=== PATIENT | male | born 2000 | race Caucasian/White ===

== ENCOUNTER 2024-04-22 09:21 | Emergency (ER) | payer OTHER, BC, SELFPAY ==
--- NOTE | 2024-04-22 | ECG_ITS ---
Test Reason : CHEST PAIN Blood Pressure : / mmHG Vent. Rate : 061 BPM Atrial Rate : 061 BPM P-R Int : 126 ms QRS Dur : 098 ms QT Int : 392 ms P-R-T Axes : 015 051 -02 degrees QTc Int : 394 ms Normal sinus rhythm with sinus arrhythmia Normal ECG No previous ECGs available Referred By: Generic ED Physician Electronically Signed By:JAVON ALMONTE MD
--- NOTE | ~2024-04-22 | XR_ITS ---
EXAMINATION: XR CHEST CLINICAL INFORMATION: Chest pain COMPARISON: None available. TECHNIQUE: Frontal view of the chest was obtained. FINDINGS: Very slight right basilar atelectasis. No pneumothorax. Trachea is midline. Cardiac mediastinal silhouette is not enlarged. No large pleural effusion. Osseous structures are intact. Soft tissues are unremarkable. XR/XR chest 1V IMPRESSION: Very slight right basilar atelectasis.
[2024-04-22 09:40] VITALS: BP 106/49; PULSE 65; RESP 18; TEMP 37; O2SAT 98; BMI 25.1
[2024-04-22 09:49] LABS: MANUAL DIFF FLAG NO
[2024-04-22 09:53] LABS: Basophils Percent Auto 0.2 % (0-2); Eosinophils Absolute Auto 0.1 X10*3/uL (0.0-0.4); Eosinophils Percent Auto 0.7 % (0-4); Hematocrit 43.3 % (42.0-52.0); Hemoglobin 14.9 g/dl (14.0-18.0); Imm Gran Abs Auto 0.03 X10*3/uL (0.00-0.03); Imm Gran Pct Auto 0.4 % (0.0-0.4); Lymphocytes Absolute Auto 0.7 X10*3/uL (1.2-4.9); Lymphocytes Percent Auto 8.3 % (20-40); Mean Corpuscular HGB Conc 34.4 g/dl (31.0-36.0); Mean Corpuscular Hemoglobin 27.9 pg (27.0-33.0); Mean Corpuscular Volume 80.9 fL (80.0-98.0); Mean Platelet Volume 9.8 fL (9.4-12.4); Monocytes Absolute Auto 0.7 X10*3/uL (0.1-1.2); Monocytes Percent Auto 8.4 % (2-11); Neutrophils Absolute Auto 6.9 x10*3/uL (2.0-8.3); Platelet Count 188 X10*3/uL (160-400); Red Blood Count 5.35 X10*6/uL (4.60-5.80); Red Cell Distribution Width 13.3 % (11.0-16.0); White Blood Count 8.4 X10*3/uL (4.8-10.8)
[2024-04-22 09:58] LABS: Prothrombin Time 12.6 SEC (11.1-13.3)
[2024-04-22 10:04] LABS: Alanine Aminotransferase 20 U/L (0-40); Albumin Level 4.7 g/dL (3.5-5.0); Alkaline Phosphatase 81 U/L (39-117); Anion Gap 13 (12-20); Aspartate Amino Transferase 27 U/L (5-37); Bilirubin Total 0.6 mg/dL (0.0-1.0); Blood Urea Nitrogen 19 mg/dL (9-16); Calcium 9.9 mg/dL (8.4-10.2); Carbon Dioxide 27 mmol/L (22-29); Chloride 103 mmol/L (96-108); Creatinine Clr Calc Pharmacy 106.6; Estimated Glomerular Filt Rate > 60; Glucose Random 87 mg/dL (60-115); Magnesium 1.9 mg/dL (1.6-2.6); Potassium 4.3 mmol/L (3.3-5.1); Sodium 139 mmol/L (135-145); Total Protein 7.8 g/dL (6.5-8.0)
--- NOTE | 2024-04-22 10:09 | ED_ITS ---
HPI - Nausea/Vomiting/Diarrhea General Chief complaint: Nausea/Vomiting/Diarrhea Stated complaint: Chest pain, vomiting, diarrhea Time Seen by Provider: 04/22/24 09:51 Source: patient Mode of arrival: ambulatory Limitations: no limitations History of Present Illness ED Provider: GEOVANNY YE Narrative: 23 yo male with no sig PMH here with c/o eating infante last night with chicken then started to vomit and have diarrhea this AM noted epigastric and chest pain - has no chest pain when he works out no recent travel/procedures/abx use. His roommate seems okay. No fevers MD elicited complaint: nausea, vomiting, diarrhea and abdominal pain Onset (ago): hour(s) (several) Description of vomiting: food contents and watery Description of diarrhea: watery Associated nausea: Yes Associated abdominal pain: Yes Location of pain: chest and epigastric Radiation: diffuse Pain consistency: intermittent Severity: moderate Quality: aching and constant Exacerbating factors: eating Relieving factors: none Context: possible food poisoning Associated symptoms: headaches, loss of appetite, malaise, nausea/vomiting and weakness Related Data Previous Rx's ?Medication ?Instructions ?Recorded ondansetron 4 mg disintegrating 4 mg PO Q8H PRN nausea and 04/22/24 tablet vomiting #20 tabs Allergies Allergy/AdvReac Type Severity Reaction Status Date / Time No Known Allergies Allergy Verified 04/22/24 09:43 Review of Systems 2 Review of Systems: Constitutional : No Weight loss, No Fever, No Chills ENT/Mouth : No sore throat, No Rhinorrhea Eyes: No Swelling, No Redness Cardiovascular : pos Chest Pain, No SOB, NoEdema Respiratory : No Cough, No Sputum, No Wheezing Gastrointestinal : Positive Nausea, Positive Vomiting, positive Diarrhea, positive abdominal Pain, No Hematochezia, No Melena Genitourinary : No Dysuria, No Urinary Frequency, No Hematuria, No Urgency Musculoskeletal : No joint pain, No Myalgias, No Joint Swelling Skin : No Skin Lesions, No rash Neuro : No Weakness, No Numbness, No Dizziness, pos Headache Psych : No Anxiety/Panic, No Depression All other systems reviewed and are negative. Gastrointestinal: Gastrointestinal: Reports nausea PMFSH Past Medical History Attestation statement: The following information was validated with the patient. Source: old records reviewed Medical History No pertinent past medical history Social History Social History (Updated 04/22/24 @ 10:14 by Rachael Hussein DO) Alcohol intake: current Alcohol intake frequency: holidays/special occasions only Patient Tobacco Use Status: Never used Tobacco Smoked in Last 30 Days: No Use of substances other than those prescribed or required for medical reasons: No Advance Directives: Yes Advance Directives Information Provided: Yes Advance Directives on File: No Do you have a plan to hurt others: No Plan Physical Exam 2 Vital Signs: Vital Signs: Last Vital Signs Temp 97.8 F 04/22/24 12:20 Pulse 60 04/22/24 12:20 Resp 18 04/22/24 12:20 BP 110/62 04/22/24 12:20 Pulse Ox 100 04/22/24 12:20 O2 Del Method Room Air 04/22/24 12:20 BMI result Body Mass Index 25.1 Appearance: Alert. Oriented X3. No acute distress. Eyes: Pupils equal, round and reactive to light. ENT: Pharynx normal. Neck: Normal inspection. Neck supple. CVS: Normal heart rate and rhythm. Pulses normal. Respiratory: No respiratory distress. Breath sounds normal. Abdomen: Soft and nontender. Skin: Skin warm and dry. Normal skin color. Normal skin turgor. Extremities: No lower extremity edema. No calf ttp Neuro: Oriented X 3. No motor deficit. No sensory deficit. Medications Administered Discontinued Medications Generic Name Dose Route Start Last Admin Trade Name Freq PRN Reason Stop Dose Admin Diphenhydramine HCl 25 mg 04/22/24 09:54 04/22/24 10:10 Diphenhydramine Hcl 50 Mg/Ml Vial IVPUSH 04/22/24 09:55 25 mg ONCE ONE Administration Famotidine 20 mg 04/22/24 09:54 04/22/24 10:11 Famotidine/Pf 20 Mg/2 Ml Vial IVPUSH 04/22/24 09:55 20 mg ONCE ONE Administration Sodium Chloride 1,000 mls @ 999 mls/hr 04/22/24 09:54 04/22/24 11:11 Ns IV 04/22/24 10:54 Infused .Q1H1M ONE Infusion Metoclopramide HCl 10 mg 04/22/24 09:54 04/22/24 10:11 Metoclopramide Hcl 10 Mg/2 Ml Vial IVPUSH 04/22/24 09:55 10 mg ONCE ONE Administration Medical Decision Making Medical Decision Making MDM Narrative: 23 yo male no sig PMH here with headaches, nonbloody n/v/d and epigastric chest pain that started after n/v after eating [employer] - no travel, abx use or sick contacts at this time will need labs, CXR, IVF and IV medications suspect gastritis, viral syndrome, food toxicity, no localized ttp on abdominal exam Differential Diagnosis Differential Diagnoses: The differential diagnosis associated with the presentation includes food toxicity, GERD, gastritis Admission/Observation Consideration of admission/observation: Escalation of care including admission/observation considered tolerating PO feels better labs reassuring stable for DC Lab Data [facility] Lab Attestation statement: I reviewed the patient's lab results. 04/22/24 09:38 04/22/24 09:38 Labs: Lab Results 04/22/24 Range/Units 09:38 WBC 8.4 (4.8-10.8) X10*3/uL RBC 5.35 (4.60-5.80) X10*6/uL Hgb 14.9 (14.0-18.0) g/dl Hct 43.3 (42.0-52.0) % MCV 80.9 (80.0-98.0) fL MCH 27.9 (27.0-33.0) pg MCHC 34.4 (31.0-36.0) g/dl RDW 13.3 (11.0-16.0) % Plt Count 188 (160-400) X10*3/uL MPV 9.8 (9.4-12.4) fL Immature Gran % (Auto) 0.4 (0.0-0.4) % Neut % (Auto) 82.0 H (45-73) % Lymph % (Auto) 8.3 L (20-40) % [place] % (Auto) 8.4 (2-11) % Eos % (Auto) 0.7 (0-4) % Baso % (Auto) 0.2 (0-2) % Lymph # (Auto) 0.7 L (1.2-4.9) X10*3/uL [place] # (Auto) 0.7 (0.1-1.2) X10*3/uL Eos # (Auto) 0.1 (0.0-0.4) X10*3/uL Baso # (Auto) 0.0 (0.0-0.2) X10*3/uL Abs Immat Gran (auto) 0.03 (0.00-0.03) X10*3/uL Absolute Neuts (auto) 6.9 (2.0-8.3) x10*3/uL Absolute Nucleated RBC 0.000 (0.0-0.012) X10*3/uL Nucleated RBC % (auto) 0.0 (0.0-0.2) /100WBC PT 12.6 (11.1-13.3) SEC INR 1.0 (0.9-1.1) Sodium 139 (135-145) mmol/L Potassium 4.3 (3.3-5.1) mmol/L Chloride 103 (96-108) mmol/L Carbon Dioxide 27 (22-29) mmol/L Anion Gap 13 (12-20) BUN 19 H (9-16) mg/dL Creatinine 1.06 (0.5-1.4) mg/dL Estim Creat Clear Calc 106.6 Estimated GFR > 60 Random Glucose 87 (60-115) mg/dL Calcium 9.9 (8.4-10.2) mg/dL Magnesium 1.9 (1.6-2.6) mg/dL Total Bilirubin 0.6 (0.0-1.0) mg/dL AST 27 (5-37) U/L ALT 20 (0-40) U/L Alkaline Phosphatase 81 (39-117) U/L Troponin I High Sens < 2.7 (<3.5-35.0) ng/L Total Protein 7.8 (6.5-8.0) g/dL Albumin 4.7 (3.5-5.0) g/dL Lipase 24 (8-78) U/L Independent Interpretation I performed an independent interpretation of an: EKG and Plain X-Ray (no consolidation) Interpretation: Rate: 61 Rhythm: NSR [place]: normal Normal P waves. Normal BOB. Normal QRS complex. ST T wave : no DA, inverted t waves V1 and III qTC: 394 prior studies: no acute ischemia The study has been interpreted contemporaneously by me. . Radiology Impression Discussion of test interpretation with radiology: I have reviewed the radiologist's reading. Prescription Management I considered prescription management with: Other Discharge Plan Discharge Clinical Impression: Atypical chest pain Nausea & vomiting Qualifiers: Vomiting type: unspecified Qualified Code(s): R11.2 - Nausea with vomiting, unspecified Patient Disposition: Home, Self-Care Instructions: Chest Pain (ED), Acute Nausea and Vomiting (ED) Additional Instructions: labs reassuring, EKG reassuring, chest xray no pneumonia return for fevers, worsening breathing, cough or any other concerns bland diet for 24 hours, stay hydrated, advance diet slowly Prescriptions: New ondansetron 4 mg tablet,disintegrating 4 mg PO Q8H PRN (Reason: nausea and vomiting) Qty: 20 0RF Stand Alone Forms: Work/School Release Print Language: [place]
[2024-04-22] MEDS: diphenhydrAMINE HCL 50 MG/ML VIAL 25 MG IVPUSH (10:10)
[2024-04-22] MEDS: 0.9 % Sodium Chloride 1,000 ML 999 ML IV (10:10)
[2024-04-22 10:11] LABS: Troponin-I High Sensitivity < 2.7 ng/L (<3.5-35.0)
[2024-04-22] MEDS: Metoclopramide HCl 10 MG/2 ML VIAL IVPUSH (10:11)
[2024-04-22] MEDS: Famotidine/PF 20 MG/2 ML VIAL IVPUSH (10:11)
--- NOTE | 2024-04-22 10:19 | PC.NURSE ---
patient a&ox3, vss, iv inserted, labs previously drawn, ivf hung per order, pt medicated per order, currently pt denying any abd pain- states he only has pain during/immediately after vomiting. call mehta within reach, will continue to monitor
--- NOTE | 2024-04-22 11:28 | PC.NURSE ---
pt ivf have completed, pt stating he is feeling better.
[2024-04-22 11:35] LABS: Lipase 24 U/L (8-78)
[2024-04-22 12:20] VITALS: BP 110/62; PULSE 60; RESP 18; TEMP 36.6; O2SAT 100
[2024-04-22 12:32] VITALS: BP 110/62; PULSE 60; RESP 18; TEMP 36.6; O2SAT 100
== END 2024-04-22 12:32 | disposition home or self-care (01) ==
PROVIDERS: Emergency Provider Emergency Medicine; PCP Family Medicine Adult Medicine
DX: R07.89 Other chest pain (principal); R11.2 Nausea with vomiting, unspecified; R19.7 Diarrhea, unspecified; R10.13 Epigastric pain
CPT/HCPCS: 36415; 71045; 80053; 83690; 83735; 84484; 85025; 85610; 93005; 96361; 96374; 96375; 99284; 99285; J1200; J2765

== ENCOUNTER → 2024-04-22 09:26 | Outpatient (BNV) | payer OTHER, BC, SELFPAY | PROVIDERS: Emergency Provider Emergency Medicine; PCP Family Medicine Adult Medicine; Visit Provider Internal Medicine Cardiovascular Disease | DX: R07.9 Chest pain, unspecified (principal) | CPT/HCPCS: 93010 ==

== ENCOUNTER 2024-11-06 08:38 | Outpatient (AMB) | payer OTHER, SELFPAY ==
--- NOTE | 2024-11-06 08:41 | A.OFFPC_ITS ---
Vital Signs 11/06/24 08:57 Height 5 ft 7 in Weight 157 lb 2 oz BMI 24.6 BP 124/72 Blood Pressure Location Rt brachial Position Sitting Respiration 12 Pulse 58 Pulse Source Pulse Oximeter Pulse Oximetry (%) 99 Oxygen Delivery Method Room Air Intake Visit Reasons: back pain /pt request Intake Note: New patient to [facility] and patient also complaining of lower back pain x 2 years Jordan Man Required: No Allergies No Known Allergies Allergy (Verified 11/06/24 09:32) Medication List - Last Reconciled 11/06/24 by Tila Lofton [facility] No Known Home Meds Tobacco use date assessed: 11/06/24 Dental Screening Dental Screen Date: 11/06/24 Did you have a dental visit in the last 12 months?: Yes Did you have a dental problem in the last 6 months where you did not have access to dental care?: No Was dental information given to patient?: Patient has dentist HPI HPI Comments History of Present Illness Details 24-year-old male with no significant med ical history Social: [place], lives in [facility] Flu declined Tdap UTD - Specialists None Here today to establish care. No previous medical records available to me. Presenting with lower back pain. 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 The patient describes the pain as being located on both sides but more pronounced on the left side, without radiating outwards. It is constant throughout the day and exacerbated by physical activities such as lifting weights, bending over, and specific sitting positions, e.g., in a car. No relief has been found with the use of Tylenol, ibuprofen, heating pads, or topical analgesics like Salonpas. 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 The patient has not reported any traumatic injury. No other treatments have been pursued outside self-care measures, and no imaging studies have previously been performed. Pain does not radiate to the legs, and there are no alterations in urination or abdominal pain. No red flag signs assoc w/ back pain. Physical Exam General: Awake, alert. No apparent distress Eyes: Sclera and conjunctiva clear bilaterally, PERRLA Neck FROM Cardiovascular: Regular rate and rhythm Respiratory: Clear to auscultation bilaterally Lumbar and sacral spinal tenderness w/ palpation. Paraspinal muscle spasm on the left causing a straigthening of L spine; this area is tender to touch. Negative SLR, Neg glute bridge, no leg length discrepancy. Normal strength, tone, r eflexes. Neurovasc intact. Plan - Order lumbar spine x-rays to evaluate underlying structural issues. - Recommend initiating a course of physi yvonne therapy focused on sports and conditioning, particularly targeting the hamstrings, hips, and lower back. - Consider referral to a chiropractic sp ecialist for possible spine adjustment PRN - Prescribe prescription-strength ibupro fen and a low-dose muscle relaxer to manage symptoms and aid in relieving muscle spasms. Patient was informed and verbally consented to the use of an ambient scribe for clinic note documentation during this visit. Discussion Notes I discussed with the patient the likely diagnosis of chronic lower back pain, potentially exacerbated by muscle strain or spasms due to previous training and physical activities. Given the chronic nature of his symptoms, I recommended an initial diagnosis to include lumbar spine x-rays. For management, I presented options, including chiropractic adjustments and physical therapy, explaining the benefits and potential relief these could offer. We evaluated physical therapy with a specialist in sports and conditioning to better serve his needs and lifestyle. The patient was informed about the prescription of ibuprofen and Xanaflex for symptomatic relief and advised to monitor his symptoms closely. We discussed the importance of these interventions and agreed to re-evaluate in six weeks to assess progress. The patient was encouraged to use the patient portal for accessing medical records and missed follow-up appointments. RTO 6 weeks to fu on back pain s/p PT. Sooner PRN Total time spent caring for the patient today was 30 minutes. This includes time spent before the visit reviewing the chart, time spent during the visit, and time spent after the visit on documentation [facility] Medical History No pertinent past medical history Surgical History No pertinent past surgical history Family History (Updated 11/06/24 @ 08:57 by Mariela Kramer MA) Brother Mental health disorder Paternal Grandfather Substance abuse Cancer Paternal Grandmother Substance abuse Cancer Maternal Grandmother Cancer Cardiovascular disease Mother Cardiovascular disease Social History (Updated 11/06/24 @ 08:55 by Mariela Kramer MA) Household Members: Other Household Members Other:: roomates Both parents involved: No Caregiver staying overnight: No Housing: Apartment Are you a primary adult live in caregiver to a significant other at home: No Do you presently have visiting nurse or other home services: No 75 years or older and lives alone: No Alcohol intake: current Alcohol intake frequency: holidays/special occasions only Patient Tobacco Use Status: Never used Tobacco e-Cigarette/Vaping Use: Never Used Second Hand Smoke Exposure: No service: Yes Current occupational status: student Cognitive needs: No Hearing needs: No Vision needs: No Questionnaire PHQ-9 Over the last 2 weeks, how often have you been bothered by any of the following problems? 1. Little interest or pleasure in doing things: not at all 2. Feeling down, depressed, or hopeless: not at all 3. Trouble falling or staying asleep, or sleeping too much: not at all 4. Feeling tired or having little energy: not at all 5. Poor appetite or overeating: not at all 6. Feeling bad about yourself - or that you are a failure or have let yourself or your family down: not at all 7. Trouble concentrating on things, such as reading the newspaper or watching television: not at all 8. Moving or speaking so slowly that other people could have noticed. Or the opposite - being so fidgety or restless that you have been moving around a lot more than usual: not at all 9. Thoughts that you would be better off or of hurting yourself in some way: not at all Total score: 0 Depression Screening Interpretation: Negative Depression Screening Done: Yes 36870 - PHQ-9 Billing: Yes Source: Developed by Drs. Reginaldo Cuello, Marielos Parrish, Ned Selby and colleagues, with an educational karel from [employer] Thrive Questionnaire Date Thrive assessed: 11/06/24 I am a: Patient What is your living situation today?: I have a steady place to live Within the past 12 months, did the food you bought not last and you didn't have the money to get more?: Never true Within the past 12 months, did you worry whether your food would run out before you got money to buy more?: Never true Do you have trouble paying for medicines?: No Do you have trouble getting transportation to medical appointments?: No Do you have trouble paying your heating and electricity bill?: No Do you have trouble taking care of your child, family member or friend?: No Do you have trouble with day-to-day activities such as bathing, preparing meals, shopping, managing finances, etc.?: No Are you currently unemployed and looking for a job?: No Are you interested in more education?: No THRIVE Score: 0 AUDIT C Alcohol Use Questionnaire (AUDIT-C) 1. How often do you have a drink containing alcohol?: Never 3. How often do you have six or more drinks on one occasion?: Never Total Score: 0 Score Reviewed/Action Taken: Yes GALINA-7 AMB Questionnaire GALINA-7 Date GALINA - 7 assessed: 11/06/24 Feeling nervous, anxious, or on edge: 0 = Not at all Not being able to stop or control worryin = Not at all Worrying too much about different things: 0 = Not at all Trouble relaxin = Not at all Being so restless that it is hard to sit still: 0 = Not at all Becoming easily annoyed or irritable: 0 = Not at all Feeling afraid as if something awful might happen: 0 = Not at all Total GALINA-7 score (0-4 normal; 5-9 mild; 10-14 moderate; 15-21 severe): 0 Source: Developed by Drs. Reginaldo Cuello, Marielos Parrish, Ned Selby and colleagues, with an educational karel from [employer] GALINA-7 Assessment Billing GALINA-7 Assessment Tool: GALINA-7 Assessment 32861 Physical exam (Primary Care) Vital Signs: Last Vital Signs Pulse 58 11/06/24 08:57 Resp 12 11/06/24 08:57 BP 124/72 11/06/24 08:57 Pulse Ox 99 11/06/24 08:57 Oxygen Delivery Method Room Air 11/06/24 08:57 BMI result Body Mass Index 24.6 Tobacco/Smoking Status: Tobacco use Status Tobacco use date assessed 11/06/24 11/06/24 08:45 Patient Tobacco Use Status Never used Tobacco 11/06/24 08:55 e-Cigarette/Vaping Use Never Used 11/06/24 08:55 PHQ-9: PHQ-9 Score PHQ-9: Total score 0 11/06/24 08:42 Depression Screening Interpretation: Negative Thrive Assessment: Date of Thrive Assessment Date Thrive assessed 11/06/24 11/06/24 08:42 Coding Level of Care Code New Pt Level 3 (69560) Complex EM visit Add On G2211 Diagnoses Encounter to establish care Z76.89 Chronic midline low back pain without sciatica M54.50; G89.29 Chronicity: chronic Back pain laterality: midline Sciatica presence: without sciatica activity status Y99.1 Additional Codes PHQ-9 - 53311 - PHQ-9 Billing: Yes ([id number]) GALINA-7 Assessment Billing - GALINA-7 Assessment Tool: GALINA-7 Assessment 75904 ([id number]) Assessment & Plan Assessment & Plan (1) Encounter to establish care: Code(s): Z76.89 - Persons encountering health services in other specified circumstances Category: Medical (2) Low back pain: Code(s): M54.50 - Low back pain, unspecified Category: Medical Qualifiers: Chronicity: chronic Back pain laterality: midline Sciatica presence: without sciatica Qualified Code(s): M54.50 - Low back pain, unspecified; G89.29 - Other chronic pain (3) 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 Orders: Orders PT Evaluation and Treatment Today M54.50 - Low back pain, unspecified XR lumbar spine 6V w bending Today M54.50 - Low back pain, unspecified XR sacroiliac joint min 3V Today M54.50 - Low back pain, unspecified Medications: New ibuprofen 800 mg PO Q8H PRN 30 tabs 2RF pain tizanidine (Zanaflex) 2 mg (1/2 x 4 mg) PO BID 5 days PRN 5 tabs 0RF muscle spasticity Patient Instructions: Patient Instructions - Proceed to have lumbar spine x-rays done at the [place] office at your convenience. - Schedule and attend physical therapy sessions as recommended to address muscle tightness and back pain. - Use prescribed ibuprofen and muscle relaxers as needed for pain and muscle spasms. - Monitor symptoms and report any worsening or new symptoms. - Follow up in six weeks to evaluate the effectiveness of the treatment. - Use the patient portal to access results, view appointments, and communicate non-urgent medical questions. - Avoid heavy lifting or activities that exacerbate back pain in the meantime. Walk-In Care (Urgent Care): We Make it Easy Walk-in for urgent medical issues such as: ? Seasonal Allergies ? Insect Bites ? Cough ? Diarrhea ? Acute Asthma Attacks ? Back, Knee or Joint Pain ? Ear Infection ? Fever without a Rash ? Headaches ? Nausea ? [place], Rash or Skin Irritation ? Sore Throat ? Sports Physicals ? Vomiting Most insurances are accepted. Patients do not need to be part of the [facility] to seek care at the walk-in clinic. Locations [address] [place] [address] [place] [address] ? [phone] [facility] Walk-In Care in [place] provides services to ages 18 and over. Open Sunday-Sunday: 8 a.m. to 5 p.m. and Sunday: 9 a.m. to 3 p.m.* *Hours may vary due to staffing availability. To confirm Walk-In Care hours in [place], please call [phone]. [address] [place] [address] ? [phone] [facility] Walk-In Care in [place] provides services to ages 12 and over. Open Sunday-Sunday: 8 a.m. to 5 p.m. Hours may vary due to staffing availability. To confirm Walk-In Care hours in [place], please call [phone]. LABORATORY SERVICES: [facility] Lab ? Primary Location [address] [place] [address] Sunday through Sunday 6:00 AM ? 5:00 PM Sunday 7:00 AM ? 11:00 AM* [phone] The [facility] Lab is centrally located near the front entrance of the [facility] for easy outpatient access. Convenient parking is provided for outpatients. *Hours may vary due to staffing availability. To confirm Laboratory hours for any location, please call [phone]. Offsite Location For your convenience, we offer offsite laboratory draw stations at the following locations: [address] [facility] [place] ? [facility] [address] [facility], [address], [place] Sunday through Sunday 7:30 AM ? 1:00 PM* [phone] *Hours may vary due to staffing availability. To confirm Laboratory hours for any location, please call [phone]. [place] ? [facility] [facility] [address] [facility] [address] [facility], [place] Sunday through Sunday 6:00 AM ? 3:30 PM* Sunday 6:30 AM ? 3 PM* [phone] *Hours may vary due to staffing availability. To confirm Laboratory hours for any location, please call [phone]. [address] [facility] Sunday through Sunday 7:30 AM ? 4:00 PM* [phone] *Hours may vary due to staffing availability. To confirm Laboratory hours for any location, please call [phone] [place] [address] Sunday through 9:00 AM ? 4:00 PM* *Hours may vary due to staffing availability. To confirm Laboratory hours for any location, please call [phone]. Appointments are not necessary. Walk-ins are welcome. Like all the departments throughout the [facility], our Lab undergoes frequent reviews to ensure the quality and accuracy of test results, and our staff takes special pride in its status as a nationally accredited facility. Patient Portal: ONE PATIENT. ONE RECORD. BETTER CARE. [facility] has a fully integrated, cutting- edge mobile electronic health information system that has revolutionized the way we care for our patients and manage our organization. This system improves communication and coordination enabling us to provide safe, higher-quality care, and an overall positive experience for staff and patients. Our first priority, as always, is to deliver the highest quality care possible. The system is running in the background supporting that priority. This portal is for all [facility] services and practices. If you are experiencing any technical difficulties with enrolling or logging into the Patient Portal please complete the [facility] Patient Portal Technical Support Form. [facility] now offers a new secure on-line interactive tool for patients to review their health information ? Patient Portal. This interactive web portal will enable patients and their families to take an active role in their care by providing easy, secure access to their health information via the internet. The Patient Portal provides patients with instant access to their health information, including laboratory results, medications, allergies, demographic information, visit history, and more. In addition to managing their own care, parents and health care proxies with authorized consent will appreciate the ability to access the records of those individuals for whom they provide care. Please note: if you wish to gain access (Proxy) to another patient?s portal, you will be required to come to the Medical Records Department in person at [facility]. Both the patient giving proxy access and the proxy will need to provide photo identification and complete the appropriate authorization. The Patient Portal also allows track their appointments online. The [facility] Patient Portal also saves patients time by allowing them to submit updates to their demographic and contact information prior to their visits. Portal email notifications will also alert patients to any new activity on their portal, such as test results and new appointments. In order to initially enroll in the [facility] Patient Portal, you will need to enter some required information including the following: ? your [facility] Medical Record number ? your personal home email address ? name ? date of Please note: In order to enroll in the [facility] Patient Portal, we need to have your email address on file in your electronic medical record. The email address needs to be specific for one person (yourself) in order for your Portal e nrollment to be successful. You can update your email address in person with our Registration staff when you are registering for a hospital visit. Otherwise, you will need to come to the Health Information Management (Medical Records) Department at [facility]. We are open from Sunday ? Sunday from 7:30 a.m. ? 4:30 p.m. You will be required to present a photo id. Once you have successfully enrolled in the Patient Portal, you will receive a one-time user id and password for the Portal, sent to your email address. This will allow you to log into the Patient Portal within 99 hrs and reset your own logon id and password, and define personal security questions. Once your permanent login and password have been set, you can log into the [facility] Patient Portal at any time via the blue button above or from the Portal Logon button on any page of the [facility] website. [facility] encourage all of our patients to enroll in Patient Portal as it presents a valuable opportunity for patients and their families to actively participate in their care and stay healthy Welcome to [facility]. We look forward to working with you.
--- OUTSIDE RECORDS SUMMARY | 2024-11-06 08:52 | XMS_ITS | Continuity of Care Document ---
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 It does not include entries that were removed or entered in error. Problem Status Onset Date Problem Type Date of Resolution Comments Source No Known Problems Active Condition Ambulatory Pharmacy Medications Combined list of outpatient medications from [facility] and [facility] facilities.Medications provided include 1) outpatient medications from the last 15 months, and 2) patient-reported medications. Medication Details Route Status Patient Instructions Prescription Expires Prescription Number Last Dispense Date Ordering Provider Order Date Order Qty Source Afrin 0.05% nasal spray 2 spray(s) , Nostril- Both, BID, # 15 mL, 0 total refill(s ), Acute, 2 spray(s) Nostril- Both BID, Pharmacy : [facility] Nostri l-Both (into the nose) Complet ed 09/07/2022 15.0 [facility]358C[facility] bacitracin zinc 500 units/g topical ointment 1 appl(s), Topical, BID, # 30 g, 0 total refill(s ), Acute, 1 appl(s) Topical BID, Pharmacy : [facility] Topica l (on the skin) Complet ed 10/04/2022 30.0 0358C[facility] Mucinex D 60 mg-600 mg oral tablet, extended release 1 tab(s), Oral, BID, PRN cold symptoms , # 18 tab(s), 0 total refill(s ), Acute, 1 tab(s) Oral BID,PRN: as needed for cold symptoms , Pharmacy : [facility] Oral (given by mouth) Complet ed 10/04/2022 18.0 [facility]358C[facility] penicillin V potassium 500 mg oral tablet 1 tab(s), Oral, BID, # 20 tab(s), 0 total refill(s ), Acute, 02/12/23 6:56:36 AM CDT, 1 tab(s) Oral BID, Pharmacy : [facility] Oral (given by mouth) Complet ed 02/12/2023 20.0 0091C-N [facility] Allergies, Adverse Reactions, Alerts Combined list of allergies from [facility] and [facility] facilities. It does not include entries that were removed or entered in error. Substance Category Reaction Severity Reaction type Status Date Reported Comments Source No Known Allergies Drug allergy (disorder) active 04/18/2023 [facility] Immunizations Combined list of available immunizations from the [facility] of Defense and [facility] facilities. 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 complet ed COVID Vaccine Moderna 07/25/22 Given 0358A-N [facility] [place] varicella virus vaccine 2021 NOREEN Landaverde Arm [id number] Merck & Company Inc complet ed varicella virus vaccine 07/25/22 Given 0358A-N [facility] [place] hepatitis B adult vaccine 2021 ANN Broussard desiree, right (delt oid) [id number] BeneStream complet ed hepatitis B adult vaccine 07/25/22 Given 0358A-N [facility] [place] poliovirus vaccine, inactivated 1 2021 KAIA OROZCO [id number] Moderna US, Inc. (MOD) complet ed polioviru s vaccine, inactivat ed DoD varicella virus vaccine 1 2021 KAIA OROZCO [id number] 21 Merck (MSD) complet ed varicella virus vaccine [facility] tuberculin skin test; purified protein derivative solution, intradermal 2021 KAIA OROZCO [id number] Sanofi Pasteur (PMC) complet ed tuberculi n skin test; purified protein derivativ e solution, intraderm al DoD meningococcal polysaccharid e (groups A, C, Y and W-135) diphtheria toxoid conjugate vaccine (MCV4P) 1 2021 KAIA OROZCO [id number] Sanofi Pasteur (PMC) complet ed meningoco ccal polysacch aride (groups A, C, Y and W-135) diphtheri a toxoid conjugate vaccine (MCV4P) DoD tetanus toxoid, reduced diphtheria toxoid, and acellular pertu is vaccine, adsorbed 2021 KAIA OROZCO [id number] [email or web address] (SKB) complet ed tetanus toxoid, reduced diphtheri a toxoid, and acellular pertussis vaccine, adsorbed DoD Adenovirus, type 4 and type 7, live, oral 1 2021 KAIA OROZCO [id number] 143 Unknown (UNK) complet ed Adenoviru s, type 4 and type 7, live, oral DoD Hepatitis B vaccine (recombinant) , CpG adjuvanted 1 2021 KAIA OROZCO [id number] 189 Accelereach. (DVX) complet ed Hepatitis B vaccine (recombin ant), CpG adjuvante d DoD SARS-COV-2 (COVID-19) vaccine, mRNA, spike protein, LNP, preservative free, 100 mcg or 50 mcg dose 1 2021 KAIA OROZCO [id number] Sp[employer]. (MOD) complet ed SARS-COV- 2 (COVID-19 ) vaccine, mRNA, spike protein, LNP, preservat roberto free, 100 mcg or 50 mcg dose DoD Results Combined list of recent chemistry, hematology and other laboratory results from [facility] and [facility], ranging from 15 months to all on record, depending upon the facility. Order Name Results Value Reference Range Date Interpretation Specimen Comments Source Molecular Infectiou s Disease Reason for Test? Screening (11/14/22 1:33 PM) 11/14 N [facility] Molecular Infectiou s Disease SARS-CoV -2 PCR Negative 1 (11/14/22 1:33 PM) 01/17 /2023 N Interpretiv e Data: POSITIVE: SARS-CoV-2 detected NEGATIVE: SARS-CoV-2 not detected Negative results do not preclude SARS-CoV-2 infection and should not be used as the sole basis for patient management decisions. Negative results must be combined with clinical observation s, patient history, and epidemiolog ical information . The Aptima SARS-CoV-2 assay performed on the Quolaw Fusion system is a nucleic acid amplificati on in vitro diagnostic test intended for the qualitative detection of RNA from SARS-CoV-2 isolated and purified from upper respiratory specimens obtained from individuals meeting COVID-19 clinical and/or epidemiolog ical criteria, as well as upper respiratory specimens collected from an individual, including individuals withoutsymp toms or other reason to suspect COVID-19 infection. The Aptima SARS-CoV-2 assay is for use only under Emergency Use Authorizati on (EUA) in the laboratorie s certified under the Clinical Laboratory Improvement Amendments of 1988 (CLIA), 42 U.S.C. 263a, that meets requirement s to perform high complexity tests.Resul ts are for the identificat ion of SARS-CoV-2 RNA. The SARS-CoV-2 RNA is generally detectable in upper respiratory specimens during the acute phase of infection. Positive results are indicative of the presence of SARS-CoV-2 RNA, clinical correlation with patient history and other diagnostic information is necessary to determine patient infection status. [facility] Infectiou s Disease Strep A, Rapid Positive *ABN* (11/14/22 1:33 PM) 11/14 A [facility] Vital Signs Combined list of inpatient and outpatient Vital Signs from [facility] of Defense and [facility], ranging from 12 months to all on record, depending upon the facility. Vital Sign Value Date Comments Source Systolic Blood Pressure 116mm[Hg] 09/04/2022 11:17:00 Ambulatory Pharmacy Diastolic Blood Pressure 76mm[Hg] 09/04/2022 11:17:00 Ambulatory Pharmacy Mean Arterial Pressure, Calc 89mm[Hg] 09/04/2022 11:17:00 Ambulatory P harmacy Peripheral Pulse Rate 84bpm 09/04/2022 11:17:00 Ambulatory Pharmacy Respiratory Rate 16br/min 09/04/2022 11:17:00 Ambulatory Pharmacy Temperature Oral 37.4Cel 09/04/2022 11:17:00 Ambulatory Pharmacy BP Site 09/04/2022 11:17:00 [facility]ul [facility]ory Pharmacy Blood Pressure Manual 09/04/2022 11:17:00 Ambulatory Pharmacy Systolic Blood Pressure 133mm[Hg] 11/14/2022 15:55:00 Ambulatory Pharmacy Diastolic Blood Pressure 74mm[Hg] 11/14/2022 15:55:00 Ambulatory Pharmacy Mean Arterial Pressure, Calc 94mm[Hg] 11/14/2022 15:55:00 Ambulatory P harmacy Peripheral Pulse Rate 85bpm 11/14/2022 15:55:00 Ambulatory Pharmacy Respiratory Rate 16br/min 11/14/2022 15:55:00 Ambulatory Pharmacy Temperature Oral 36.7Cel 11/14/2022 15:55:00 Ambulatory Pharmacy BP Site 11/14/2022 15:55:00 [facility]ul [facility] Pharmacy Blood Pressure Manual 11/14/2022 15:55:00 Ambulatory Pharmacy Encounters Combined list of: 1) Encounters from Department of Veterans Affairs facilities going back up to thelast 18 months. 2) Encounters from the Department of Defense facilities going back up to 280 months. Location Location Details Encounter Type Encounter Number Reason For Visit Attending Provider ADM Date DC Date Status Disposition Source [facility] [id number] POLLY RANKIN 06/22 Released w/o Limitations [facility] dominique([facility] OUTPATIENT [id number] JELANI HERNANDEZ 06/22 Released w/o Limitations [facility] OUTPATIENT [id number] FIRST VISIT FOR IMMUNIZ ATIONS MONICA JACOBSON Merrick 06/26 Released w/o Limitations [facility]pin dominique([facility] ) [facility] OUTPATIENT [id number] Notes Entered by: ME ZITA LEON 04 Jul 2022 0855 ------- ------- ------- ------- -- G/2084 URI sx DESHAUN LEON 07/04 Sick at Home/Quarter s [facility] dominique(MCR D [facility]) Procedures Combined list of: 1) Procedures from Department of Veterans Affairs facilities going back up to thelast 18 months, not all VA non-surgical procedures are included; 2) All procedures from the Department of Defense facilities. Procedure Procedure Type Code Date Perfomer Comments Sourc e No data available for this section Ambul[facility] ry Pharmacy Threshold Audiogram (Pure Tone) Automated Threshold Audiogram (Pure Tone) Automated [id number] [place] [facility] Patient education, not otherwise cla ified, non-physician provider, group, per se ion [place] [facility] Ophthalmological New Patient Start Intermediate Level Care Ophthalmological New Patient Start Intermediate Level Care [id number] MAURI JAMESON [facility] Vaccines Viral Polio, Inactivated Vaccines Viral Polio, Inactivated 90662 KAIA OROZCO IPV; Series #: 1; 0.5 mL; IM; Right Arm; Mfg: Lantronix.; Lot: [id number]; VIS given (Heather: 06/03/2021; 08/12/2021 - Multiple). [facility] Vaccines Viral Varicella (Active) Vaccines Viral Varicella (Active) 24296 KAIA OROZCO Varicella; Series #: 1; 0.5 mL; SC; Right Arm; Mfg: Merck; Lot: [id number]; VIS given (Heather: 06/03/2021). [facility] Skin Test Anergy Tuberculin Intradermal Skin Test Anergy Tuberculin Intradermal 20097 KAIA OROZCO IPPD; Series #: 1; 0.1 mL; ID; Left Arm; Mfg: Sanofi Pasteur; Lot: [id number]; VIS given. [facility] Hepatitis B Vaccine (Active) Adult Dosage 2 Dose Schedule Hepatitis B Vaccine (Active) Adult Dosage 2 Dose Schedule 28925 KAIA OROZCO Hep B- CpG (Heplisav-B); Series #: 1; 0.5 mL; IM; Right Arm; Mfg: Accelereach.; Lot: [id number]; VIS given (Heather: 08/12/2021). DoD Vaccine SARS-CoV-2 mRNA-LNP Ricardo Protein Preservative Free 100mcg/0.5mL IM Vaccine SARS-CoV-2 mRNA-LNP Ricardo Protein Preservative Free 100mcg/0.5mL IM 07766 KAIA OROZCO COVID-19 vaccine, mRNA, spike protein, 100 mcg/0.5mL or 50 mcg/0.25mL (Moderna 12+ yrs); Series #: 1; 0.5 mL; IM; Left Arm; Mfg: Moderna Xinrong, Inc.; Lot: [id number]; VIS given (Heather: 04/14/2022). [facility] Immunization Administration By Injection, One Vaccine Immunization Administration By Injection, One Vaccine 85528 KAIA OROZCO [facility] Immunization Administration By Injection, Each Additional Vaccine Immunization Administration By Injection, Each Additional Vaccine 06136 KAIA OROZCO [facility] Immunization Admin By Intranasal / Oral Route One Vaccine Immunization Admin By Intranasal / Oral Route One Vaccine 64110 KAIA OROZCO [facility] Vaccine SARS-CoV-2 mRNA-LNP Ricardo Protein Preservative Free 100mcg/0.5mL IM First Dose Vaccine SARS-CoV-2 mRNA-LNP Ricardo Protein Preservative Free 100mcg/0.5mL IM First Dose 0011A KAIA OROZCO DoD Physician Supervised Injection Intramuscular Physician Supervised Injection Intramuscular 42543 KAIA OROZCO [facility] Venipuncture Venipuncture 42630 KAIA OROZCO [facility] Meningococcal Polysaccharide Diphtheria Toxoid Conjugate Vaccine Meningococcal Polysaccharide Diphtheria Toxoid Conjugate Vaccine 67164 KAIA OROZCO Meningococcal MCV4P (Menactra); Series #: 1; 0.5 mL; IM; Right Arm; Mfg: Sanofi Pasteur; Lot: [id number]; VIS given (Heather: 06/03/2021). [facility] Tdap Vaccine Tdap Vaccine 61102 KAIA OROZCO Tdap; Series #: 1; 0.5 mL; IM; Left Arm; Mfg: [email or web address]; Lot: [id number]; VIS given (Heather: 06/03/2021). [facility] Vaccines Vaccines 76488 KAIA OROZCO Adenovirus Type 4 and 7; Series #: 1; 2 tablets; PO; Oral; Mfg: Unknown; Lot: [id number]; VIS given (Heather: 11/05/2019). DoD Social History Combined list of available smoking, tobacco, and other social history from [facility] of Defense and Veterans Affairs facilities. Social History Type Response Date Comment Sourc e Sexual Orientation Ambula tory Pharmacy Gender identity Ambulator y Pharmacy Male Ambulatory Pha rmacy This section is an empty soc ial history section. DoD Assessment and Plan Combined list of future care activities from [facility] of Defense and Veterans Affairs facilities (e.g., assessment and plan notes, appointments, orders, and referrals). Additional future care activities may be listed in the Plan of Care section. Result Assessment and Plan Date Source Assessment and Plan Extracted from:Title : RES SEP FROM AD Author: KOFI SUTTON PA-C Date: 02/12/23 1.?EXAM, OCCUPATIONAL, SEPARATION Patient is medically fit to separate from service. ?Patient has no apparent disqualifying conditions. Appropriate for follow up with VA medical providers. Documentation completed on the DD Form 2807-1 and DD Form 2808. ?Completed documentation scanned into Angie?and the originals were returned to the patient. ? Kofi Sutton PA-C [address]? ? ? Extracted from:Title: Covid-19, Strep A Testing Nurse Protocol Author: RAINER GREENFIELD LPN Date: 11/14/22 Pharyngitis Patient presents to clinic today with pharyngitis along with?some of the following?symptoms: red swollen tonsils, malaise, pain with swallowing. Patient will be tested for strep today.?Patient instructed he will receive further instructions tomorrow?if strep is positive, v/u. Screening status Tested for Covid-19 and Strep A Upper respiratory infection Patient presented to [facility] for COVID testing. Congestion present. Pt also complains of sore throat, body aches, and decreased appetite x 3 days. Lungs CTA bilaterally in all lobes. Patient was given the at home care instructions and informed that they are to quarantine until COVID and Strep A?results are received. Patient informed they can view their results in the patient portal and if they are unable to do so, to call clinic in am?for results. If results are positive, member will continue isolation until at least 5 days passed since test resulted and can return to work after 24 hours of being symptom free. If patient symptoms worsen patient will call PCM. All questions and concerns addressed. Extracted from:Title: Suture Removal Office Clinic Note Author: Yang Elder IDC Date: 09/04/22 1.?Laceration of chin Suture removal f/u x 3 days NV intact Full ROM. 5/5 strength/sensation of?face WA/WD/NADS/VSS ? 1 suture was removed from site with no blood loss or complications ? Bacitracin for antimicrobial coverage Full duty Educated on monitoring the blister and RTC if any s/sx consistent w/ cellulitis arise ? Patient verbalizes understanding and agree w/ plan ? ? ? Ordered: Suture Removal ? 2.?URI - Upper respiratory infection Upper Respiratory Infection, acute. Productive cough, rhinorrhea, and nasal congestion. DDx: viral? ? most likely (possibly bronchitis) vs. bacterial (strep; early sinusitis). No respiratory distress, evidence of moderate to severe range dehydration, or acute vital sign changes. No sudden onset of f/c/ns/myalgia consistent with influenza CENTAUR negative WA/WD/NAD/VSS LUNGS: CTAB, no complaints of SOB, CC, or CP with normal VS, consistent with PNA? No anosmia, cough, or flu-like sx consistent with current CoVid-19 infection Treat for URI ? Mucinex D and Afrin Full duty Increase hydration F/u PRN if s/sx persist or worsen. Pt expressed verbal understanding ? Ordered: Suture Removal ? Orders: oxymetazoline nasal(Afrin 0.05% nasal spray), 2 spray(s), Nostril-Both, BID, # 15 mL, 0 total refill(s), Acute, 2 spray(s) Nostril-Both BID, Pharmacy: [facility] [Last filled 09/04/22] bacitracin topical(bacitracin zinc 500 units/g topical ointment), 1 appl(s), Topical, BID, # 30 g, 0 total refill(s), Acute, 1 appl(s) Topical BID, Pharmacy: [facility] [Last filled 09/04/22] pseudoephedrine-guaifenesin(Mucine x D 60 mg-600 mg oral tablet, extended release), 1 tab(s), Oral, BID, PRN cold symptoms, # 18 tab(s), 0 total refill(s), Acute, 1 tab(s) Oral BID,PRN:as needed for cold symptoms, Pharmacy: [facility] [Last filled 09/04/22] Extracted from:Title: CASIMIRO - Jaya Lac (Initial) Author: ADARSH HOUSTON PA Date: 09/04/22 1.?Laceration without foreign body of unspecified part of head, initial encounter Mild laceration of L jawline. Placed one simple subcutaneous?suture in the middle of the wound to approximate edges. Utilized Dermabond to finish closure. Area dressed and member counseled on wound care. There was no bleeding and member tolerated well. Return in 3-5 d for suture removal. ? Pt vu and has no further questions or concerns. Pt is agreeable to the plan. ? ? Pt seen in clinic on?09/01/22 15:10:00. Encounter note completed and signed on Date/Time:?09/04/22 06:29:01 ? Adarsh Houston PA-C ? 09/04/22 06:29:04 ? 11/06/2024 Ambulatory Pharmacy Functional Status Combined list of recent functional and cognitive assessments recorded at [facility] and [facility] ([facility]).[facility] Functional [place] Measurement (FIM) Scale: 1 = Total Assistance (Subject = 0% +), 2 = Maximal Assistance (Subject = 25% +), 3 = Moderate Assistance (Subject = 50% +), 4 = Minimal Assistance (Subject = 75% +), 5 = Supervision, 6 = Modified [place] (Device), 7 = Complete [place] (Timely, Safely). Assessment Date/Time Source Assessment Type Assessment Skill Assessment Score Assessment Details No data available for this section
[2024-11-06 08:57] VITALS: BP 124/72; PULSE 58; RESP 12; O2SAT 99; BMI 24.6
== END 2024-11-06 09:53 | disposition home or self-care (01) ==
PROVIDERS: PCP Nurse Practitioner Family; Visit Provider Nurse Practitioner Family
DX: Z76.89 Persons encountering health services in other specified circumstances (principal); M54.50 Low back pain, unspecified; G89.29 Other chronic pain; Y99.1 Military activity

== ENCOUNTER 2024-11-06 08:38 | Outpatient (REF) | payer OTHER, SELFPAY ==
--- NOTE | ~2024-11-06 | XR_ITS ---
CLINICAL HISTORY: M54.50 - Low back pain, unspecified 3 views sacroiliac joints Comparison: None Findings Anatomic alignment of the imaged SI joints. No diastasis, erosions, or osseous ankylosis. Portions of the sacrum and SI joints are obscured with moderate bowel gas in the [id number]. Phleboliths are noted in the pelvis. IMPRESSION: No osseous ankylosis or erosions of the imaged SI joints. This document has been electronically signed by: Eliot Johnson MD on 11/07/2024 23:05:47
--- NOTE | ~2024-11-06 | XR_ITS ---
CLINICAL HISTORY: M54.50 - Low back pain, unspecified 5 views lumbar spine Comparison: None Findings: No syndesmophytes or osseous ankylosis at this time. Question mild facet arthropathy of the lumbosacral junction with partial obscuration of the L5 pars. No definite lysis. Normal heights of 5 lumbar vertebrae without significant listhesis. Sacrum and SI joints are partly obscured. Phleboliths noted in the pelvis. Moderate bowel gas and mild-moderate stool burden in the mqdak-bi-pvem. IMPRESSION: 1. Normal heights of 5 lumbar vertebrae without significant listhesis. 2. No osseous ankylosis or syndesmophytes at this time. This document has been electronically signed by: Eliot Johnson MD on 11/07/2024 23:07:39
--- OUTSIDE RECORDS SUMMARY | 2024-11-06 11:20 | XMS_ITS | Continuity of Care Document ---
Author Name [facility] Organization [facility] Care Team Providers Care Turn Out Name Role Phone [facility] Unavailable Unavailable Problems Combined list of problems from [facility] and [facility] facilities. It does not include entries that were removed or entered in error. Problem Status Onset Date Problem Type Date of Resolution Comments Source No Known Problems Active Condition Ambulatory Pharmacy Medications Combined list of outpatient medications from [facility] and [facility] facilities.Medications provided include 1) outpatient medications from the last 15 months, and 2) patient-reported medications. Medication Details Route Status Patient Instructions Prescription Expires Prescription Number Last Dispense Date Ordering Provider Order Date Order Qty Source Afrin 0.05% nasal spray 2 spray(s) , Nostril- Both, BID, # 15 mL, 0 total refill(s ), Acute, 2 spray(s) Nostril- Both BID, Pharmacy : [facility] Nostri l-Both (into the nose) Complet ed 09/07/2022 15.0 0358C[facility]N [facility] bacitracin zinc 500 units/g topical ointment 1 appl(s), Topical, BID, # 30 g, 0 total refill(s ), Acute, 1 appl(s) Topical BID, Pharmacy : [facility] Topica l (on the skin) Complet ed 10/04/2022 30.0 0358C-N [facility] Mucinex D 60 mg-600 mg oral tablet, extended release 1 tab(s), Oral, BID, PRN cold symptoms , # 18 tab(s), 0 total refill(s ), Acute, 1 tab(s) Oral BID,PRN: as needed for cold symptoms , Pharmacy : [facility] Oral (given by mouth) Complet ed 10/04/2022 18.0 0358C[facility] penicillin V potassium 500 mg oral tablet 1 tab(s), Oral, BID, # 20 tab(s), 0 total refill(s ), Acute, 02/12/23 6:56:36 AM CDT, 1 tab(s) Oral BID, Pharmacy : [facility] Oral (given by mouth) Complet ed 02/12/2023 20.0 0091C-N [facility] Allergies, Adverse Reactions, Alerts Combined list of allergies from Department of Defense and Veterans Affairs facilities. It does not include entries that were removed or entered in error. Substance Category Reaction Severity Reaction type Status Date Reported Comments Source No Known Allergies Drug allergy (disorder) active 04/18/2023 [facility] Immunizations Combined list of available immunizations from the Department of Defense and Veterans Affairs facilities. 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 complet ed COVID Vaccine Moderna 07/25/22 Given 0358A-N [facility] [place] varicella virus vaccine 2021 NOREEN Landaverde Arm [id number] Merck & Company Inc complet ed varicella virus vaccine 07/25/22 Given 0358A-N [facility] [place] hepatitis B adult vaccine 2021 ANN Broussard desiree, right (delt oid) [id number] [email or web address] complet ed hepatitis B adult vaccine 07/25/22 Given 0358A-N [facility] [place] poliovirus vaccine, inactivated 1 2021 KAIA OROZCO [id number] Moderna [place], Inc. (MOD) complet ed polioviru s vaccine, inactivat ed DoD varicella virus vaccine 1 2021 KAIA OROZCO [id number] 21 Merck (MSD) complet ed varicella virus vaccine [facility] tuberculin skin test; purified protein derivative solution, intradermal 2021 KAIA OROZCO [id number] Sanofi Pasteur (PMC) complet ed tuberculi [...] vaccine, adsorbed 2021 KAIA OROZCO [id number] [place] [employer] (SKB) complet ed tetanus toxoid, reduced diphtheri a toxoid, and acellular pertussis vaccine, adsorbed DoD Adenovirus, type 4 and type 7, live, oral 1 2021 KAIA OROZCO [id number] 143 Unknown (UNK) complet ed Adenoviru s, type 4 and type 7, live, oral DoD Hepatitis B vaccine (recombinant) , CpG adjuvanted 1 2021 KAIA OROZCO [id number] 189 Yob[employer]. (DVX) complet ed Hepatitis B vaccine (recombin ant), CpG adjuvante d DoD SARS-COV-2 (COVID-19) vaccine, mRNA, spike protein, LNP, preservative free, 100 mcg or 50 mcg dose 1 2021 KAIA OROZCO [id number] [employer]. (MOD) complet ed SARS-COV- 2 (COVID-19 [...] The Aptima SARS-CoV-2 assay performed on the [employer] Fusion system is a nucleic acid amplificati [...] ADM Date DC Date Status Disposition Source [facility] OUTPAT[facility] [id number] POLLY RANKIN 06/22 Released w/o Limitations [facility] Crispin dominique([facility]) [facility] OUTPATIENT [id number] JELANI HERNANDEZ 06/22 Released w/o Limitations [facility]pin dominique([facility] [employer] OUTPATIENT [id number] FIRST VISIT FOR IMMUNIZ ATIONS MONICA JACOBSON Merrick 06/26 Released w/o Limitations [facility] Crispin dominique([facility] ) [facility]) OUTPATIENT [id number] Notes Entered by: ME ZITA LEON 04 Jul 2022 0855 ------- ------- ------- ------- -- G/2084 URI sx DESHAUN LEON 07/04 Sick at Home/Quarter s [facility] Crispin dominique(MCR D Fourth [facility]) Procedures Combined list of: 1) Procedures from Department of Veterans Affairs facilities going back up to thelast 18 months, not all VA non-surgical procedures are included; 2) All procedures from the Department of Defense facilities. Procedure Procedure Type Code Date Perfomer Comments Sourc e Threshold Audiogram (Pure Tone) Automated Threshold Audiogram (Pure Tone) Automated [id number] [place] [facility] Patient education, not otherwise cla ified, non-physician provider, group, per se ion [place] [facility] Ophthalmological New Patient Start Intermediate Level Care Ophthalmological New Patient Start Intermediate Level Care [id number] MAURI JAMESON [facility] Vaccines Viral Polio, Inactivated Vaccines Viral Polio, Inactivated 76470 KAIA OROZCO IPV; Series #: 1; 0.5 mL; IM; Right Arm; Mfg: Nano ePrint.; Lot: [id number]; VIS given (Heather: 06/03/2021; 08/12/2021 - Multiple). [facility] Vaccines Viral Varicella (Active) Vaccines Viral Varicella (Active) 97498 KAIA OROZCO Varicella; Series #: 1; 0.5 mL; SC; Right Arm; Mfg: Merck; Lot: [id number]; VIS given (Heather: 06/03/2021). [facility] Skin Test Anergy Tuberculin Intradermal Skin Test Anergy Tuberculin Intradermal 65640 KIAA OROZCO IPPD; Series #: 1; 0.1 mL; ID; Left Arm; Mfg: Sanofi Pasteur; Lot: [id number]; VIS given. [facility] Hepatitis B Vaccine (Active) Adult Dosage 2 Dose Schedule Hepatitis B Vaccine (Active) Adult Dosage 2 Dose Schedule 39886 KAIA OROZCO Hep B- CpG (Heplisav-B); Series #: 1; 0.5 mL; IM; Right Arm; Mfg: Yobongo.; Lot: [id number]; VIS given (Heather: 08/12/2021). DoD Vaccine SARS-CoV-2 mRNA-LNP Ricardo Protein Preservative Free 100mcg/0.5mL IM Vaccine SARS-CoV-2 mRNA-LNP Ricardo Protein Preservative Free 100mcg/0.5mL [place] 8[address] KAIA OROZCO COVID-19 vaccine, mRNA, spike protein, 100 mcg/0.5mL or 50 mcg/0.25mL (Moderna 12+ yrs); Series #: 1; 0.5 mL; IM; Left Arm; Mfg: Moderna CollabIP, Inc., Inc.; Lot: [id number]; VIS given (Heather: 04/14/2022). [facility] Immunization Administration By Injection, One Vaccine Immunization Administration By Injection, One Vaccine 77575 KAIA OROZCO [facility] Immunization Administration By Injection, Each Additional Vaccine Immunization Administration By Injection, Each Additional Vaccine 77852 KAIA OROZCO [facility] Immunization Admin By Intranasal / Oral Route One Vaccine Immunization Admin By Intranasal / Oral Route One Vaccine 13743 KAIA OROZCO [facility] Vaccine SARS-CoV-2 mRNA-LNP Ricardo Protein Preservative Free 100mcg/0.5mL IM First Dose Vaccine SARS-CoV-2 mRNA-LNP Ricardo Protein Preservative Free 100mcg/0.5mL IM First Dose 0011A KAIA OROZCO [facility] Physician Supervised Injection Intramuscular Physician Supervised Injection Intramuscular 49338 KAIA OROZCO [facility] Venipuncture Venipuncture 01198 KAIA OROZCO [facility] Meningococcal Polysaccharide Diphtheria Toxoid Conjugate Vaccine Meningococcal Polysaccharide Diphtheria Toxoid Conjugate Vaccine 59188 KAIA OROZCO Meningococcal MCV4P (Menactra); Series #: 1; 0.5 mL; IM; Right Arm; Mfg: Sanofi Pasteur; Lot: [id number]; VIS given (Heather: 06/03/2021). [facility] Tdap Vaccine Tdap Vaccine 93491 KAIA OROZCO Tdap; Series #: 1; 0.5 mL; IM; Left Arm; Mfg: SmithKline; Lot: [id number]; VIS given (Heather: 06/03/2021). [facility] Vaccines Vaccines 49685 KAIA OROZCO Adenovirus Type 4 and 7; Series #: 1; 2 tablets; PO; Oral; Mfg: Unknown; Lot: [id number]; VIS given (Heather: 11/05/2019). [facility] No data available for this section Ambulato ry Pharmacy Social History Combined list of available smoking, tobacco, and other social history from Department of Defense and Veterans Affairs facilities. Social History Type Response Date Comment Sour e This section is an empty soc ial history section. DoD Sexual Orientation Ambula tory Pharmacy Gender identity Ambulator y Pharmacy Male Ambulatory Pha rmacy Assessment and Plan Combined list of future [...] to the patient. ? Kofi Sutton PA-C [address]? ? ? Extracted from:Title: Covid-19, Strep [...] A Upper respiratory infection Patient presented to [facility] for COVID testing. Congestion present. Pt also [...] refill(s), Acute, 2 spray(s) Nostril-Both BID, Pharmacy: [facility] [Last filled 09/04/22] bacitracin topical(bacitracin zinc 500 units/g topical ointment), 1 appl(s), Topical, BID, # 30 g, 0 total refill(s), Acute, 1 appl(s) Topical BID, Pharmacy: [facility] [Last filled 09/04/22] pseudoephedrine-guaifenesin(Mucine x D 60 mg-600 mg oral tablet, extended release), 1 tab(s), Oral, BID, PRN cold symptoms, # 18 tab(s), 0 total refill(s), Acute, 1 tab(s) Oral BID,PRN:as needed for cold symptoms, Pharmacy: [facility] [Last filled 09/04/22] Extracted from:Title: CASIMIRO [...] of Defense and Veterans Affairs (VA).VA Functional Wolfe Measurement (FIM) Scale: 1 = Total Assistance (Subject = 0% +), 2 = Maximal Assistance (Subject = 25% +), 3 = Moderate Assistance (Subject = 50% +), 4 = Minimal Assistance (Subject = 75% +), 5 = Supervision, 6 = Modified Wolfe (Device), 7 = Complete Wolfe (Timely, Safely). Assessment Date/Time Source Assessment Type Assessment Skill Assessment Score Assessment Details No data available for this section
== END 2024-11-06 08:39 | disposition home or self-care (01) ==
LOC: HO.HMGCX 08:38
PROVIDERS: PCP Nurse Practitioner Family; Visit Provider Nurse Practitioner Family
DX: Z76.89 Persons encountering health services in other specified circumstances (principal); M54.50 Low back pain, unspecified; G89.29 Other chronic pain
CPT/HCPCS: 72110; 72202; 96127; 99202

== ENCOUNTER → 2024-11-06 10:43 | Outpatient (BNV) | payer OTHER, SELFPAY | PROVIDERS: PCP Nurse Practitioner Family; Visit Provider Radiology Neuroradiology | DX: M54.50 Low back pain, unspecified (principal) | CPT/HCPCS: 72110; 72202 ==

== ENCOUNTER 2025-03-03 09:57 | Outpatient (AMB) | payer OTHER, SELFPAY ==
--- NOTE | 2025-03-03 09:58 | A.OFFPC_ITS ---
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 The patient describes the pain as being located on both sides but more pronounced on the left side, without radiating outwards. It is constant throughout the day and exacerbated by physical activities such as lifting weights, bending over, and specific sitting positions, e.g., in a car. No relief has been found with the use of Tylenol, ibuprofen, heating pads, or topical analgesics like Salonpas. The pain began after a specific training exercise, involving log runs while stationed in [place]. The patient has not reported any traumatic injury. No other treatments have been pursued outside self-care measures, and no imaging studies have previously been performed. Pain does not radiate to the legs, and there are no alterations in urination or abdominal pain. No red flag signs assoc w/ back pain. Today: - The patient is a 24-year-old male pres enting for f/u of low back pain. - Initial assessment was conducted in [facility], during which the patient was directed to physical therapy, and diagnostic imaging was performed. - Ibuprofen and Zanaflex were prescribed for management, alongside physical therapy, which has been adhered to, providing variable relief. - Acupuncture treatments have been added to the regimen, perceived beneficial by the patient. - Ongoing back pain described as fluctua ting between constant dull ache and episodes of sharp pain, particularly prominent on the left side, sometimes bilateral. - Flare-ups are aggravated by specific a ctivities like running, wonders about MRI - No new neurological symptoms presented ; exercises are performed with modification due to discomfort. Physical Exam General: Awake, alert. No apparent distress Eyes: Sclera and conjunctiva clear bilaterally, PERRLA Neck FROM Lumbar and sacral spinal tenderness w/ palpation, worse over sacrum, Paraspinal muscle tightness remains on the left, this area is tender to touch. + SLR on L, + glute bridge provokes transverse low back pain worse on the L, no leg length discrepancy. Normal strength, tone, reflexes. Neurovasc intact. Results - X-ray imaging (previously performed) 5 views lumbar spine Comparison: None Findings: No syndesmophytes or osseous ankylosis at this time. Question mild facet arthropathy of the lumbosacral junction with partial obscuration of the L5 pars. No definite lysis. Normal heights of 5 lumbar vertebrae without significant listhesis. Sacrum and SI joints are partly obscured. Phleboliths noted in the pelvis. Moderate bowel gas and mild-moderate stool burden in the tlmjl-wl-lnly. IMPRESSION: 1. Normal heights of 5 lumbar vertebrae without significant listhesis. 2. No osseous ankylosis or syndesmophyte s at this time. This document has been electronically signed by: Eliot Johnson MD on 11/07/2024 23:07:39 3 views sacroiliac joints Comparison: None Findings Anatomic alignment of the imaged SI joints. No diastasis, erosions, or osseous ankylosis. Portions of the sacrum and SI joints are obscured with moderate bowel gas in the kycaj-vd-yazm. Phleboliths are noted in the pelvis. IMPRESSION: No osseous ankylosis or erosions of the imaged SI joints. This document has been electronically signed by: Eliot Johnson MD on 11/07/2024 23:05:47 Discussion Notes I discussed with the patient the nature of his low back pain and the limitation posed by insurance coverage for obtaining MRI through primary care. I explained the process and benefits of visiting a spine/pain specialist, particularly the expedited pathway for both assessment and potential imaging orders such as MRI. Recommendations for continuous physical therapy were reiterated for symptomatic management. Pain management and workup alternatives within the clinic, should further treatment be necessary, were explained. We agreed on maintaining current therapeutic practices until specialist review occurs and advised the patient about direct engagement with the referral clinic for quick scheduling. Future follow-up for complete physical is suggested. Assessment and Plan 1. Low Back Pain The patient will continue with conservative management, primarily through physical therapy which has provided variable relief? supplemented by occasional use of ibuprofen and Zanaflex. Referral to a specialist is deemed necessary for advanced evaluation and to assess the potential requirement for MRI imaging. Patient Instructions - Continue attending your physical thera py sessions regularly. - Resume acupuncture treatments as you f ind beneficial. - Practice care when engaging in activit ies known to provoke your symptoms, such as running or lifting. - Refrain from making changes to your me dication without consulting your healthcare provider.. - Schedule a follow-up physical exam in June or July or sooner if symptoms worsen. Consent Patient was informed and verbally consented to the use of an ambient scribe for clinic note documentation during this visit. Total time spent caring for the patient today was 33 minutes. This includes time spent before the visit reviewing the chart, time spent during the visit, and time spent after the visit on documentation, reviewing laboratory results, diagnostic imaging, medications, performing a medically necessary evaluation, counseling on diagnoses, care coordination, ordering appropriate tests, ordering appropriate medications, review of tests performed by other providers, reporting test results with the patient, communication with other healthcare providers. [facility], [facility] Medical History No pertinent past medical history Surgical History No pertinent past surgical history Family History (Updated 11/06/24 @ 08:57 by Mariela Kramer MA) Brother Mental health disorder Paternal Grandfather Substance abuse Cancer Paternal Grandmother Substance abuse Cancer Maternal Grandmother Cancer Cardiovascular disease Mother Cardiovascular disease Social History (Updated 11/06/24 @ 08:55 by Mariela Kramer MA) Household Members: Other Household Members Other:: roomates Both parents involved: No Caregiver staying overnight: No Housing: Apartment Are you a primary home care administrator to a significant other at home: No Do you presently have visiting nurse or other home services: No 75 years or older and lives alone: No Alcohol intake: current Alcohol intake frequency: holidays/special occasions only Patient Tobacco Use Status: Never used Tobacco e-Cigarette/Vaping Use: Never Used Second Hand Smoke Exposure: No service: Yes Current occupational status: student Cognitive needs: No Hearing needs: No Vision needs: No Questionnaire Thrive Questionnaire Date Thrive assessed: 11/06/24 GALINA-7 AMB Questionnaire GALINA-7 Date GALINA - 7 assessed: 11/06/24 Source: Developed by Drs. Reginaldo Cuello, Marielos Parrish, Ned Selby and colleagues, with an educational karel from [employer]. Physical exam (Primary Care) Vital Signs: Last Vital Signs Temp 97.1 F 03/03/25 10:00 Pulse 58 03/03/25 10:00 Resp 12 03/03/25 10:00 BP 124/73 03/03/25 10:00 Pulse Ox 98 03/03/25 10:00 Oxygen Delivery Method Room Air 03/03/25 10:00 BMI result Body Mass Index 25.1 Tobacco/Smoking Status: Tobacco use Status Tobacco use date assessed 11/06/24 03/03/25 09:58 Patient Tobacco Use Status Never used Tobacco 03/03/25 09:58 e-Cigarette/Vaping Use Never Used 03/03/25 09:58 Thrive Assessment: Date of Thrive Assessment Date Thrive assessed 11/06/24 03/03/25 09:58 Coding Level of Care Code Est Pt Level 4 (81813) Complex EM visit Add On G2211 Diagnoses Chronic midline low back pain without sciatica M54.50; G89.29 Chronicity: chronic Back pain laterality: midline Sciatica presence: without sciatica Assessment & Plan Assessment & Plan (1) Low back pain: Code(s): M54.50 - Low back pain, unspecified Category: Medical Qualifiers: Chronicity: chronic Back pain laterality: midline Sciatica presence: without sciatica Qualified Code(s): M54.50 - Low back pain, unspecified; G89.29 - Other chronic pain Plan . Orders: Referrals Pain Management Referral G89.29 - Other chronic pain, M54.50 - Low back pain, unspecified
[2025-03-03 10:00] VITALS: BP 124/73; PULSE 58; RESP 12; TEMP 36.2; O2SAT 98; BMI 25.1
--- OUTSIDE RECORDS SUMMARY | 2025-03-03 11:13 | XMS_ITS | Continuity of Care Document ---
Author Name [facility] Organization [facility] Care Team Providers Care Corporate Quality Engineer Name Role Phone [facility] Unavailable Unavailable Problems Combined list of problems from Department of [facility] and [facility] Affairs facilities. It does not include entries that were removed or entered in error. Problem Status Onset Date Problem Type Date of Resolution Comments Source No Known Problems Active Condition 0091C-[facility] [place] Medications Combined list of outpatient medications from Department of [facility] and [facility] Affairs facilities.Medications provided include 1) outpatient medications from the last 15 months, and 2) patient-reported medications. Medication Details Route Status Patient Instructions Prescription Expires Prescription Number Last Dispense Date Ordering Provider Order Date Order Qty Source Afrin 0.05% nasal spray 2 spray(s) , Nostril- Both, BID, # 15 mL, 0 total refill(s ), Acute, Pharmacy : [facility] Nostri l-Both (into the nose) Complet ed 09/07/2022 [address] [facility] bacitracin zinc 500 units/g topical ointment 1 appl(s), Topical, BID, # 30 g, 0 total refill(s ), Acute, Pharmacy : [facility] Topica l (on the skin) Complet ed 10/04/2022 [address] [facility] Mucinex D 60 mg-600 mg oral tablet, extended release 1 tab(s), Oral, BID, PRN cold symptoms , # 18 tab(s), 0 total refill(s ), Acute, Pharmacy : [facility] Oral (given by mouth) Complet ed 10/04/2022 [address] [facility] penicillin V potassium 500 mg oral tablet 1 tab(s), Oral, BID, # 20 tab(s), 0 total refill(s ), Acute, 02/12/23 6:56:36 AM CDT, Pharmacy : [facility] Oral (given by mouth) Complet ed 02/12/2023 3 2022 20.0 0091C-N [facility] Allergies, Adverse Reactions, Alerts Combined list of allergies from Department of Defense and Veterans Affairs facilities. It does not include entries that were removed or entered in error. Substance Category Reaction Severity Reaction type Status Date Reported Comments Source No Known Allergies Drug allergy (disorder) active 04/18/2023 [facility] Immunizations Combined list of available immunizations from the Department of Defense and Veterans Affairs facilities. 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 complet ed COVID Vaccine Moderna 07/25/22 Given 0358A-[facility] [place] varicella virus vaccine 2021 NOREEN Landaverde Arm [id number] Merck & Company Inc complet ed varicella virus vaccine 07/25/22 Given [facility] [place] hepatitis B adult vaccine 2021 ANN Broussard desiree, right (delt oid) [id number] [employer] complet ed hepatitis B adult vaccine 07/25/22 Given 0358A-N [facility] [place] poliovirus vaccine, inactivated 1 2021 KAIA OROZCO [id number] Moderna [place], Inc. (MOD) complet ed polioviru s vaccine, inactivat ed DoD varicella virus vaccine 1 2021 KAIA OROZCO [id number] 21 Merck (MSD) complet ed varicella virus vaccine [facility] tuberculin skin test; purified protein derivative solution, intradermal 2021 KAIA OROZCO [id number] Sanofi Pasteur (PMC) complet ed tuberculi [...] is vaccine, adsorbed 2021 KAIA OROZCO [id number] [place], [place] [address]Expandly (SKB) complet ed tetanus toxoid, reduced diphtheri a toxoid, and acellular pertussis vaccine, adsorbed DoD Adenovirus, type 4 and type 7, live, oral 1 2021 KAIA OROZCO [id number] 143 Unknown (UNK) complet ed Adenoviru s, type 4 and type 7, live, oral DoD Hepatitis B vaccine (recombinant) , CpG adjuvanted 1 2021 KAIA OROZCO [id number] [employer]. (DVX) complet ed Hepatitis B vaccine (recombin ant), CpG adjuvante d DoD SARS-COV-2 (COVID-19) vaccine, mRNA, spike protein, LNP, preservative free, 100 mcg or 50 mcg dose 1 2021 KAIA OROZCO [id number] [employer] (MOD) complet ed SARS-COV- 2 (COVID-19 [...] Test? Screening (11/14/22 1:33 PM) 11/14 N 0091A-[facility] [place] Molecular Infectiou s Disease SARS-CoV -2 PCR Negative 1 (11/14/22 1:33 PM) 11/14 N Interpretive Data: POSITIVE: SARS-CoV-2 detected NEGATIVE: SARS-CoV-2 not detected Negative results do not preclude SARS-CoV-2 infection and should not be used as the sole basis for patient management decisions. Negative results must be combined with clinical observations , patient history, and epidemiologi yvonne information. The Aptima SARS-CoV-2 assay performed on the Quofore system is a nucleic acid amplificatio n in vitro diagnostic test intended for the qualitative detection of RNA from SARS-CoV-2 isolated and purified from upper respiratory specimens obtained from individuals meeting COVID-19 clinical and/or epidemiologi yvonne criteria, as well as upper respiratory specimens collected from an individual, including individuals withoutsympt oms or other reason to suspect COVID-19 infection. The Aptima SARS-CoV-2 assay is for use only under Emergency Use Authorizatio n (EUA) in the [place] laboratories certified under the Clinical Laboratory Improvement Amendments of 1988 (CLIA), 42 U.S.C. 263a, that meets requirements to perform high complexity tests.Result s are for the identificati on of SARS-CoV-2 RNA. The SARS-CoV-2 RNA is generally detectable in upper respiratory specimens during the acute phase of infection. Positive results are indicative of the presence of SARS-CoV-2 RNA, clinical correlation with patient history and other diagnostic information is necessary to determine patient infection status. 0091A-[facility] Infectiou s Disease Strep A, Rapid Positive *ABN* (11/14/22 1:33 PM) 11/14 A 0091A-[facility] Vital Signs Combined list of inpatient and outpatient Vital Signs from Department of Defense and Veterans Affairs, ranging from 12 months to all on record, depending upon the facility. Vital Sign Value Date Comments Source Systolic Blood Pressure 116 mm[Hg] 09/04/20 22 11:17:00 0358C[facility] Diastolic Blood Pressure 76 mm[Hg] 022 11:17:00 [facility] Respiratory Rate 16 br/min 09/04/2022 11:17:00 0358C[facility] Peripheral Pulse Rate 84 bpm 09/04/2022 11:17:00 0358C[facility] Mean Arterial Pressure, Calc 89 mm[Hg] 09/04/2022 11:17:00 [facility] Blood Pressure Manual Automatic 09/04/2022 11:17:00 [facility] BP Site Left arm 09/04/2022 11:17:00 [facility] [place] Temperature Oral 37.4 Lizy 09/04/2022 11:17:00 [facility] Peripheral Pulse Rate 85 bpm 11/14/2022 15:55:00 [facility] [place] Blood Pressure Manual Automatic 11/14/2022 15:55:00 [facility] [place] Systolic Blood Pressure 133 mm[Hg] 11/14/19 23 15:55:00 [facility] [place] Diastolic Blood Pressure 74 mm[Hg] 023 15:55:00 [facility] [place] Respiratory Rate 16 br/min 11/14/2022 15:55:00 [facility] [place] Temperature Oral 36.7 Lizy 11/14/2022 15:55:00 [facility] [place] BP Site Right arm 11/14/2022 15:55:00 [facility] [place] Mean Arterial Pressure, Calc 94 mm[Hg] 11/14/2022 15:55:00 [facility] [place] Encounters Combined list of: 1) Encounters from Department of Veterans Affairs facilities going backup to the last 18 months, not all VA inpatient encounters are included; 2) Encounters from the Department of Defense facilities going backup to 280 months. Location Location Details Encounter Type Encounter Number Reason For Visit Attending Provider ADM Date DC Date Status Disposition Source [facility] Ekta diaz([facility]) OUTPATIENT [id number] POLLY RANKIN 06/22 Released w/o Limitations [facility] Crispin dominique([facility]) [facility] Ekta diaz([facility]) OUTPATIENT [id number] JELANI HERNANDEZ 06/22 Released w/o Limitations [facility] Crispin dominique([facility]) [facility] Ekta n([facility] Rec[employer] Medical Process) OUTPATIENT [id number] FIRST VISIT FOR IMMUNIZ ATMONICA SAMANIEGO 06/26 Released w/o Limitations [facility] Crispin dominique([facility] [employer] ) [facility] Ekta diaz([facility] Fourth BN BAS) OUTPATIENT [id number] Notes Entered by: ME ZITA LEON 04 Jul 2022 0855 ------- ------- ------- ------- -- URI sx DESHAUN LEON 07/04 Sick at Home/Quarter s [facility] Crispin dominique([facility] Fourth BN BAS) Procedures Combined list of: 1) Procedures from Department of Veterans Affairs facilities going back up to thelast 18 months, not all VA non-surgical procedures are included; 2) All procedures from the Department of Defense facilities. Procedure Procedure Type Code Date Perfomer Comments Sourc e UNLISTED VACCINE/TOXOID 2021 [facility] OPHTHALMOLOGICAL SERVICES: MEDICAL EXAMINATION AND EVALUATION WITH INITIATION OF DIAGNOSTIC AND TREATMENT PROGRAM; INTERMEDIATE, NEW PATIENT 2021 [facility] PATIENT EDUCATION, NOT OTHERWISE CLASSIFIED, NON-PHYSICIAN PROVIDER, GROUP, PER SESSION 2021 [facility] Threshold Audiogram (Pure Tone) Automated Threshold Audiogram (Pure Tone) Automated [id number] [place] [facility] Patient education, not otherwise cla ified, non-physician provider, group, per se ion [place] [facility] Ophthalmological New Patient Start Intermediate Level Care Ophthalmological New Patient Start Intermediate Level Care [id number] MAURI JAMESON [facility] Vaccines Viral Polio, Inactivated (Salk) Vaccines Viral Polio, Inactivated (Salk) 30959 KAIA OROZCO IPV; Series #: 1; 0.5 mL; IM; Right Arm; Mfg: [employer] Lot: [id number]; VIS given (Heather: 06/03/2021; 08/12/2021 - Multiple). [facility] Vaccines Viral Varicella (Active) Vaccines Viral Varicella (Active) 74731 KAIA OROZCO S Varicella; Series #: 1; 0.5 mL; SC; Right Arm; Mfg: Merck; Lot: [id number]; VIS given (Heather: 06/03/2021). [facility] Skin Test Anergy Tuberculin Intradermal Skin Test Anergy Tuberculin Intradermal 14607 OROZCO KAIA Carl IPPD; Series #: 1; 0.1 mL; ID; Left Arm; Mfg: Sanofi Pasteur; Lot: [id number]; VIS given. [facility] Immunization Administration One Vaccine Immunization Administration One Vaccine 92347 [facility]Y [facility] Immun[facility] Administration Each Additional Vaccine Immunization Administration Each Additional Vaccine 77869 OROZCOPERRY RabagoY Carl [facility] Immunization Admin By Intranasal / Oral Route One Vaccine Immunization Admin By Intranasal / Oral Route One Vaccine 18755 OROZCO, KAIA Carl Juan J Sorensen Supervised Injection Intramuscular Supervised Injection Intramuscular 72310 [facility]COPERRY [facility] Venipuncture Venipuncture 67817 [facility] Meningococcal Polysacch Diphtheria Toxoid Conjugate Vaccine Meningococcal Polysacch Diphtheria Toxoid Conjugate Vaccine 62221 [facility] Meningococcal MCV4P (Menactra); Series #: 1; 0.5 mL; IM; Right Arm; Mfg: Sanofi Pasteur; Lot: [id number]; VIS given (Heather: 06/03/2021). [facility] Tdap Vaccine Tdap Vaccine 63709 OROZCOKAIA DELUNA Tdap; Series #: 1; 0.5 mL; IM; Left Arm; Mfg: [employer]Kline; Lot: [id number]; VIS given (Heather: 06/03/2021). [facility] Vaccines Vaccines 72987 OROZCOKAIA DELUNA Adenovirus Type 4 and 7; Series #: 1; 2 tablets; PO; Oral; Mfg: Unknown; Lot: [id number]; VIS given (Heather: 11/05/2019). [facility] No data available for this section Ambulato ry Pharmacy Social History Combined list of available smoking, tobacco, and other social history from Department of Defense and Veterans Affairs facilities. Social History Type Response Date Comment [facility] e This section is an empty soc ial history section. [facility] Sexual Orientation Ambula tory Pharmacy Gender identity Ambulator y Pharmacy Sex Representation Male (finding) Un known Organization Assessment and Plan Combined list of future [...] disqualifying conditions. Appropriate for follow up with [place] medical providers. Documentation completed on the DD Form 2807-1 and DD Form 2808. ?Completed documentation scanned into Angie?and the originals were returned to the patient. ? Kofi Sutton PA-C 3 [facility] [place]? ? ? Extracted from:Title: Covid-19, Strep A [...] A Upper respiratory infection Patient presented to [facility] for COVID testing. Congestion present. Pt also [...] All questions and concerns addressed. Extracted from:Title: G/2084 Suture Removal Office Clinic Note Author: Yang Elder, ELLIOT Date: 09/04/22 1.?Laceration of chin Suture removal [...] refill(s), Acute, 2 spray(s) Nostril-Both BID, Pharmacy: [facility] [Last filled 09/04/22] bacitracin topical(bacitracin zinc 500 units/g topical ointment), 1 appl(s), Topical, BID, # 30 g, 0 total refill(s), Acute, 1 appl(s) Topical BID, Pharmacy: [facility] [Last filled 09/04/22] pseudoephedrine-guaifenesin(Mu cinex D 60 mg-600 mg oral tablet, extended release), 1 tab(s), Oral, BID, PRN cold symptoms, # 18 tab(s), 0 total refill(s), Acute, 1 tab(s) Oral BID,PRN:as needed for cold symptoms, Pharmacy: [facility] [Last filled 09/04/22] Extracted from:Title: CASIMIRO [place] (Initial) Author: ADARSH HOUSTON PA Date: 09/04/22 [...] Adarsh Houston PA-C ? 09/04/22 06:29:04 ? 03/03/[address] [place] [address] Assessment and Plan Extracted from:Title : RES SEP FROM AD Author: KOFI SUTTON PA-C Date: 02/12/23 1.?EXAM, OCCUPATIONAL, SEPARATION Patient is medically fit to separate from service. ?Patient has no apparent disqualifying conditions. Appropriate for follow up with [place] medical providers. Documentation completed on the DD Form 2807-1 and DD Form 2808. ?Completed documentation scanned into Angie?and the originals were returned to the patient. ? Kofi Sutton PA-C 3 [facility]? ? ? Extracted from:Title: Covid-19, Strep A [...] A Upper respiratory infection Patient presented to [facility] for COVID testing. Congestion present. Pt also [...] refill(s), Acute, 2 spray(s) Nostril-Both BID, Pharmacy: [facility] [Last filled 09/04/22] bacitracin topical(bacitracin zinc 500 units/g topical ointment), 1 appl(s), Topical, BID, # 30 g, 0 total refill(s), Acute, 1 appl(s) Topical BID, Pharmacy: [facility] [Last filled 09/04/22] pseudoephedrine-guaifenesin(Mu cinex D 60 mg-600 mg oral tablet, extended release), 1 tab(s), Oral, BID, PRN cold symptoms, # 18 tab(s), 0 total refill(s), Acute, 1 tab(s) Oral BID,PRN:as needed for cold symptoms, Pharmacy: [facility] [Last filled 09/04/22] Extracted from:Title: CASIMIRO - [place] (Initial) Author: ADARSH HOUSTON PA Date: [...] Adarsh Houston PA-C ? 09/04/22 06:29:04 ? 03/03/2025 [id number] Functional Status Combined list of recent functional and cognitive assessments recorded at Department of Defense and Veterans Affairs (VA).VA Functional [place] Measurement (FIM) Scale: 1 = Total Assistance (Subject = 0% +), 2 = Maximal Assistance (Subject = 25% +), 3 = Moderate Assistance (Subject = 50% +), 4 = Minimal Assistance (Subject = 75% +), 5 = Supervision, 6 = Modified [place] (Device), 7 = Complete [place] (Timely, Safely). Assessment Date/Time Source Assessment Type Assessment Skill Assessment Score Assessment Details No data available for this section
--- OUTSIDE RECORDS SUMMARY | 2025-03-03 11:14 | XMS_ITS | Clinical Summary ---
Author Organization [facility] Address [address] [place] [address] Care Team Providers Care Hall Porter Name Role Phone Chandler Raphael MD Primary Care Provider [phone] Allergies No known active allergies Medications predniSONE (DELTASONE) 50 MG tablet Take 1 tablet (50 mg total) by mouth daily 5 tablet 07/08/2023 Active ondansetron (ZOFRAN) 4 MG tabletIndication s:Nausea and vomiting Take 1 tablet (4 mg total) by mouth every 6 (six) hours 5 tablet 11/29/2023 Active Family History Medical History Relation Name Comments No Known Problems Father No Known Problems Mother Relation Name Status Comments Father Alive Mother Alive Social History Tobacco Use Types Packs/Day Years Used Date Smoking Tobacco: Never Smokeless Tobacco: Never Tobacco Cessation:Counseling Given: Not Answered Alcohol Use Standard Drinks/Week Comments Never 0 (1 standard drink = 0.6 oz pur e alcohol) Sex and Gender Information Value Date Recorded Sex Assigned at Male 05/01/2023 9:40 AM EDT Legal Sex Male 12:18 PM EST Gender Identity Male 05/01/2023 9:40 AM EDT Sexual Orientation Not on file Last Filed Vital Signs Vital Sign Reading Time Taken Comments Blood Pressure 123/72 11/29/2023 1:35 PM EST Pulse 82 11/29/2023 1:35 PM EST Temperature 37.2 ??C (99 ??F) 11/29/2023 1:35 PM EST Respiratory Rate 18 11/29/2023 1:35 PM EST Oxygen Saturation 99% 11/29/2023 1:35 PM EST Inhaled Oxygen Concentration - - Weight 68 kg (150 lb) 11/29/2023 1:35 PM EST Height 170.2 cm (5' 7 ) 11/29/2023 1:35 PM EST Body Mass Index 23.49 11/29/2023 1:35 PM EST Plan of Treatment Health Maintenance Due Date Last Done Comments Annual Physical 2005 Hepatitis B Screening 2020 COVID-19 Vaccine ( season) 2024 07/25/2022, 06/26/2022, 11/27/2021, Additional history exists Influenza Vaccine (Season Ended) 2025 09/06/2022, 09/14/2020, 09/24/2018, Additional history exists DTaP,Tdap,and Td Vaccines (8 - Td or Tdap) 06/26/2032 06/26/2022, 03/05/2014, 07/30/2007, Additional history exists Pneumococcal Vaccines 0-49 yrs (includes High Risk) Aged Out 07/15/2003, 01/08/2003, 2002, Additional history exists No longer eligible based on patient's age to complete this topic HIB Vaccines Completed 10/16/2003, 12/27, 2002, Additional history exists Hepatitis A Vaccine Completed 09/14/2020, 0 Insurance [facility] Care Teams Hall Porter Relationship Specialty Start Date End Date Chandler Raphael MD [address] [place], [place] PCP - General Pediatrics 05/01/23
== END 2025-03-03 10:19 | disposition home or self-care (01) ==
LOC: HO.HMCFM 09:57
PROVIDERS: PCP Nurse Practitioner Family; Visit Provider Nurse Practitioner Family
DX: M54.50 Low back pain, unspecified (principal); G89.29 Other chronic pain

== ENCOUNTER → 2025-03-03 09:57 | Outpatient (BNVA) | payer OTHER, SELFPAY | PROVIDERS: PCP Nurse Practitioner Family; Visit Provider Nurse Practitioner Family | DX: M54.50 Low back pain, unspecified (principal); G89.29 Other chronic pain | CPT/HCPCS: 99212 ==

== ENCOUNTER 2025-03-17 08:39 | Outpatient (AMB) | payer OTHER, SELFPAY ==
--- NOTE | 2025-03-17 08:40 | A.OFFVIS_ITS ---
Vital Signs 03/17/25 08:45 Height 5 ft 7 in Weight 159 lb 8 oz BMI 25.0 BP 142/85 H Blood Pressure Location Rt brachial Position Sitting Pulse 54 Pulse Source Pulse Oximeter Pulse Oximetry (%) 100 Oxygen Delivery Method Room Air Intake Visit Reasons: LOw back pain Intake Note: Pain today 5 Freelance Data Entry Required: No Accompanied by: Self / Same As Patient Allergies No Known Allergies Allergy (Verified 03/17/25 08:45) HPI Comments Details: The patient is a 24-year-old male presenting with chronic low back pain. 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 Initially, the pain was sharp, evolving into an aching sensation at the lower spine and around waistline, alternating sides without clear lateralization. The pain has worsened consistently and is aggravated by activities such as forward bending, certain gym exercises, prolonged sitting, and during specific movements such as lateral bending or twisting, with relief noted upon standing upright and walking. He has been under various conservative treatments including physical therapy for 3.5 months and acupuncture through [facility] and [facility] in [place], with transient relief but no lasting improvement. Despite using analgesics and topical agents, he continues to experience persistent discomfort rated between 3-6/10, with increased intensity during lifting or bending, predominantly aching and discogenic in nature. The absence of radiating pain or significant neurological symptoms is noted. An X-ray revealed mild facet arthropathy, and an MRI has not yet been obtained. The patient experienced no severe adverse effects from past muscle relaxants and does not have significant back red-flag symptoms. His background includes a brief period of smoking, and he currently consumes alcohol socially. Disturbed sleep patterns may be related to the pain, thus affecting daily life and functionality. - Onset: Approximately two to two and a half years ago - Quality: Initially piercing, now aching and sometimes sharp, stabbing, heavy, cramping, spasming - Location: Lower back below the waistline, alternating sides - Exacerbating Factors: Forward bending, specific gym movements, lateral movements, prolonged sitting - Relieving Factors: Standing, walking - Pain Ratin to 6 out of 10 - Consistency: Persistent, varying with activity - Affect: Sleep disruptions possibly related to pain - Analgesia: Previously attempted Tylenol, ibuprofen, tizanidine, acupuncture with temporary relief - Adverse Effects: No significant side effects noted with past use of muscle relaxant - Activities of Daily Living: Limited ability to perform heavy lifting and certain movements - Aberrant Drug Related Behaviors: None reported Oswestry Low Back Pain Disability Score=7 [facility] Medical History (Updated 03/17/25 @ 10:07 by JOHN Newsome) activity status Low back pain No pertinent past medical history Surgical History No pertinent past surgical history Family History (Updated 11/06/24 @ 08:57 by Mariela Kramer MA) Brother Mental health disorder Paternal Grandfather Substance abuse Cancer Paternal Grandmother Substance abuse Cancer Maternal Grandmother Cancer Cardiovascular disease Mother Cardiovascular disease Social History (Updated 03/17/25 @ 08:47 by Rosalia Kate) Household Members: Other Household Members Other:: roomates Both parents involved: No Caregiver staying overnight: No Housing: Apartment Are you a primary dialysis patient care technician to a significant other at home: No Do you presently have visiting nurse or other home services: No 75 years or older and lives alone: No Alcohol intake: current Alcohol intake frequency: a few times a month Patient Tobacco Use Status: Former Tobacco user Tobacco use type: Cigarette e-Cigarette/Vaping Use: Never Used Second Hand Smoke Exposure: No service: Yes Current occupational status: student Cognitive needs: No Hearing needs: No Vision needs: No Review of Systems Const Details: - Musculoskeletal: Reports chronic low back pain; denies radiation to legs; no tingling or numbness, no saddle aneshesia - Neurological: Denies headaches, dizziness, tingling, or numbness, no foot drop - General: Reports disturbed sleep All systems reviewed & are unremarkable except as noted in HPI and below Physical Exam Vital Signs: Last Vital Signs Pulse 54 03/17/25 08:45 BP 142/85 H 03/17/25 08:45 Pulse Ox 100 03/17/25 08:45 Oxygen Delivery Method Room Air 03/17/25 08:45 BMI result Body Mass Index 25.0 General: Appears afebrile. Alert and oriented. Mood and affect appropriate. Follows and participates in conversation appropriately. Respiratory effort is unlabored. No cough. Able to transition from sit to stand unassisted. Ambulates with bilaterally normal heel strike and toe off. General: Yes no CVA tenderness Back/Spine/Pelvis Other: Patient is able to walk and stand on heels and tip toes with no difficulties demonstrating good motor tone. Normal gait, no limping. Can flex forward to 60- 65 degrees and extend to 10-15 degrees before experiencing lumbar pain. Lumbar flexion and forward bending reproduces moderate pain. Demonstrates 5/5 strength of quadriceps bilaterally as well as flexion/dorsiflexion of bilateral feet against resistance. 2+ pedal pulses bilaterally. Straight leg rise with dorsiflexion negative bilaterally. +2 patellar and achilles reflexes bilaterally. Facet loading test positive bilaterally. Lester sign, Raheel?s and Stinchfield tests are negative bilaterally. No groin pain with I/E hip rotations. Valsalva maneuver negative. Back: no CVA tenderness Cervical Spine: normal cervical lordosis, cervical ROM normal, No Cervical spine scars present and No Cervical spine tenderness Thoracic/Lumbar Spine: thoracic and lumbar spine normal to inspection, No Thoracic/lumbar spine scar(s), Lasegue's sign negative, straight leg raise negative bilaterally, pain with thoraco-lumbar ROM, paraspinal muscle tenderness on the right greater than left, No thoracic spinal tenderness and lumbar spinal tenderness (L4-S1) Pelvis: no buttock tenderness Sacroiliac joints: bilaterally nontender Extrem General: Yes capillary refill normal, Yes no clubbing, cyanosis or edema and Yes no calf tenderness Results Reviewed Results Reviewed: XR lumbar spine 4V min 11/07/24 Comparison: None Findings: No syndesmophytes or osseous ankylosis at this time. Question mild facet arthropathy of the lumbosacral junction with partial obscuration of the L5 pars. No definite lysis. Normal heights of 5 lumbar vertebrae without significant listhesis. Sacrum and SI joints are partly obscured. Phleboliths noted in the pelvis. Moderate bowel gas and mild-moderate stool burden in the [id number]. IMPRESSION: 1. Normal heights of 5 lumbar vertebrae without significant listhesis. 2. No osseous ankylosis or syndesmophytes at this time. XR sacroiliac joint min 3V 11/07/24 Comparison: None Findings Anatomic alignment of the imaged SI joints. No diastasis, erosions, or osseous ankylosis. Portions of the sacrum and SI joints are obscured with moderate bowel gas in the [id number]. Phleboliths are noted in the pelvis. IMPRESSION: No osseous ankylosis or erosions of the imaged SI joints. Assessment & Plan Assessment & Plan (1) Low back pain: Code(s): M54.50 - Low back pain, unspecified Category: Medical Qualifiers: Back pain laterality: midline Chronicity: chronic Sciatica presence: without sciatica Qualified Code(s): M54.50 - Low back pain, unspecified; G89.29 - Other chronic pain (2) Vertebrogenic low back pain: Code(s): M54.51 - Vertebrogenic low back pain Category: Medical (3) Lumbosacral spondylosis: Code(s): M47.817 - Spondylosis without myelopathy or radiculopathy, lumbosacral region Category: Medical (4) Muscle spasm of back: Code(s): M62.830 - Muscle spasm of back Category: Medical Plan Management focuses on conservative approaches while awaiting diagnostic clarity through an MRI to rule out disc herniation and disc degeneration and neural integrity. The MRI will provide further insights into discogenic factors contributing to pain, and this will guide future intervention pathways. Meloxicam will be used cautiously to manage flare-ups of pain as Ibuprofen has not effective, ensuring to counteract adverse gastrointestinal effects with proper hydration and food intake. Topical lidocaine patches are recommended for symptom relief. Continuous focus on hydration, good posture and activity modification is underscored to potentially regenerate intervertebral disc integrity. All questions and concerns have been answered and patient agreed with the plan. Follow up for MRI results and sooner as needed. Patient was informed and verbally consented to the use of an ambient scribe for clinic note documentation during this visit. Orders: Orders MR lumbar spine wo con Today G89.29 - Other chronic pain, M47.817 - Spondylosis without myelopathy or radiculopathy, lumbosacral region, M54.50 - Low back pain, unspecified, M54.51 - Vertebrogenic low back pain Medications: New lidocaine 5% 1 patch topical DAILY 30 days 30 ea 0RF pain G89.29 - Other chronic pain, M47.817 - Spondylosis without myelopathy or radiculopathy, lumbosacral region, M54.50 - Low back pain, unspecified, M54.51 - Vertebrogenic low back pain meloxicam Take it with food and full glass of water. Avoid other NSAIDs. 15 mg PO DAILY PRN 30 tabs 0RF pain G89.29 - Other chronic pain, M47.817 - Spondylosis without myelopathy or radiculopathy, lumbosacral region, M54.50 - Low back pain, unspecified, M54.51 - Vertebrogenic low back pain Patient Instructions: I discussed with the patient the likely diagnosis of vertebrogenic low back pain and the management strategies, including the use of meloxicam while avoiding other NSAIDs due to potential adverse effects on kidney and gastrointestinal health. The rationale for obtaining an MRI was explained in detail as a further investigatory step for understanding the degree of disc degeneration or herniation. I provided guidance on appropriate use of lidocaine patches for surface symptom management and discussed the importance of maintaining hydration. Lastly, I informed the patient regarding the non-pharmacological strategies like adjusting activities and postures that can further aid in alleviating pain. Follow-ups will be scheduled post-MRI results for further planning based on the findings. - Take meloxicam as needed for pain, with food and plenty of water. - Use prescribed lidocaine patches for pain relief if needed. - Wait for a call about your MRI appointment; follow up for MRI results. - Avoid prolonged sitting and other pain producing movements; maintain good posture and stay hydrated. - Adjust daily activities to minimize pain, such as avoiding heavy lifting. - Contact the office if new symptoms occur or current symptoms worsen. Coding Level of Care Code New Pt Level 4 (42238) Diagnoses Chronic midline low back pain without sciatica M54.50; G89.29 Back pain laterality: midline Chronicity: chronic Sciatica presence: without sciatica Vertebrogenic low back pain M54.51 Lumbosacral spondylosis M47.817 Muscle spasm of back M62.830
[2025-03-17 08:45] VITALS: BP 142/85; PULSE 54; O2SAT 100; BMI 25.0
--- OUTSIDE RECORDS SUMMARY | 2025-03-17 08:56 | XMS_ITS | Continuity of Care Document ---
Author Name [facility] Organization [facility] Care Team Providers Care Therapist Name Role Phone [facility] Unavailable Unavailable Problems Combined list of problems from Department of [facility] and Veterans Affairs facilities. It does not include entries that were removed or entered in error. Problem Status Onset Date Problem Type Date of Resolution Comments Source No Known Problems Active Condition [facility]91C[facility] [place] Medications Combined list of outpatient medications from Department of [facility] and Veterans Affairs facilities.Medications provided include 1) outpatient medications from the last 15 months, and 2) patient-reported medications. Medication Details Route Status Patient Instructions Prescription Expires Prescription Number Last Dispense Date Ordering Provider Order Date Order Qty Source Afrin 0.05% nasal spray 2 spray(s) , Nostril- Both, BID, # 15 mL, 0 total refill(s ), Acute, Pharmacy : [facility] Nostri l-Both (into the nose) Complet ed 09/07/2022 2 2021 15.0 0358C-[facility] bacitracin zinc 500 units/g topical ointment 1 appl(s), Topical, BID, # 30 g, 0 total refill(s ), Acute, Pharmacy : [facility] Topica l (on the skin) Complet ed 10/04/2022 2 2021 30.0 0358C-[facility] Mucinex D 60 mg-600 mg oral tablet, extended release 1 tab(s), Oral, BID, PRN cold symptoms , # 18 tab(s), 0 total refill(s ), Acute, Pharmacy : [facility] Oral (given by mouth) Complet ed 10/04/2022 2 2021 18.0 0358C[facility] penicillin V potassium 500 mg oral tablet 1 tab(s), Oral, BID, # 20 tab(s), 0 total refill(s ), Acute, 02/12/23 6:56:36 AM CDT, Pharmacy : [facility] Oral (given by mouth) Complet ed 02/12/2023 3 2022 20.0 0091C-[facility] Allergies, Adverse Reactions, Alerts Combined list of allergies from Department of Defense and Veterans Affairs facilities. It does not include entries that were removed or entered in error. Substance Category Reaction Severity Reaction type Status Date Reported Comments Source No Known Allergies Drug allergy (disorder) active 04/18/2023 [facility] Immunizations Combined list of available immunizations from the Department of Defense and Veterans Affairs facilities. Immunization Series Date Given Administered By Site Reaction Lot Number CVX Code Drug Combination Building Inspector Status Comments Source influenza virus vaccine, inactivated 2021 NOREEN Broussard desiree, left (delt oid) [id number] 150 ID mobile [employer] Michael complet ed influenza virus vaccine, inactivat ed 09/06/22 Given 0358A-[facility] [place] COVID Vaccine Moderna 2021 JESUS Broussard desiree, left (delt oid) [id number] Moderna [place], Inc. complet ed COVID Vaccine Moderna 07/25/22 Given 0358A-[facility] [place] varicella virus vaccine 2021 NOREEN Landaverde Arm [id number] Merck & Company Inc complet ed varicella virus vaccine 07/25/22 Given 0358A-N [facility] [place] hepatitis B adult vaccine 2021 ANN Broussard desiree, right (delt oid) [id number] Expandly complet ed hepatitis B adult vaccine 07/25/22 Given 0358A-[facility] [place] poliovirus vaccine, inactivated 1 2021 KAIA OROZCO [id number] Moderna [place], Inc. (MOD) complet ed polioviru s vaccine, inactivat ed DoD varicella virus vaccine 1 2021 KAIA OROZCO [id number] 21 Merck (MSD) complet ed varicella virus vaccine [facility] tuberculin skin test; purified protein derivative solution, intradermal 2021 KAIA OROZCO [id number] Sanofi Pasteur (PMC) complet ed tuberculi [...] is vaccine, adsorbed 2021 KAIA OROZCO [id number] [place], [place] [address]Green Momit (SKB) complet ed tetanus toxoid, reduced diphtheri a toxoid, and acellular pertussis vaccine, adsorbed DoD Adenovirus, type 4 and type 7, live, oral 1 2021 KAIA OROZCO [id number] 143 Unknown (UNK) complet ed Adenoviru s, type 4 and type 7, live, oral DoD Hepatitis B vaccine (recombinant) , CpG adjuvanted 1 2021 KAIA OROZCO [id number] 189 Nurigene. (DVX) complet ed Hepatitis B vaccine (recombin ant), CpG adjuvante d DoD SARS-COV-2 (COVID-19) vaccine, mRNA, spike protein, LNP, preservative free, 100 mcg or 50 mcg dose 1 2021 KAIA OROZCO [id number] CombiMatrixa Qualiall, Inc. (MOD) complet ed SARS-COV- 2 (COVID-19 [...] The Aptima SARS-CoV-2 assay performed on the BuildFax system is a nucleic acid amplificatio n [...] Blood Pressure 116 mm[Hg] 09/04/20 22 11:17:00 0358C-[facility] Diastolic Blood Pressure 76 mm[Hg] 022 [facility]17[facility] Respiratory Rate 16 br/min 09/04/2022 11:17:00 0358C-[facility] Peripheral Pulse Rate 84 bpm 09/04/2022 11:17:00 0358C[facility] Mean Arterial Pressure, Calc 89 mm[Hg] 09/04/2022 11:17:00 0358C[facility] Blood Pressure Manual Automatic 09/04/2022 11:17:00 0358C[facility] BP Site Left arm 09/04/2022 11:17:00 0358C-[facility] [place] Temperature Oral 37.4 Lizy 09/04/2022 11:17:00 0358C[facility] Peripheral Pulse Rate 85 bpm 11/14/2022 [...] ADM Date DC Date Status Disposition Source [facility] Ekta diaz([facility]) OUTPATIENT [id number] POLLY RANKIN 06/22 Released w/o Limitations [facility] Crispin dominique(DNAIEL [facility]) [facility] d[facility]) OUTPATIENT [id number] JELANI HERNANDEZ 06/22 Released w/o Limitations [facility] Crispin dominique(MCR D Optomet ry Clinic) [facility] Ekta n([facility] [employer]) OUTPATIENT [id number] FIRST VISIT FOR IMMUNIZ ATMONICA SAMANIEGO 06/26 Released w/o Limitations [facility] Crispin dominique([facility] D [employer] ) [facility] Ekta diaz([facility] Fourth BN BAS) OUTPATIENT [id number] Notes Entered by: ME ZITA LEON 04 Jul 2022 0855 ------- ------- ------- ------- -- G URI sx DESHAUN LEON 07/04 Sick at Home/Quarter s [facility] Crispin dominique([facility] Fourth BN BAS) Procedures Combined list of: 1) Procedures from Department of Veterans Affairs facilities going back up to thelast 18 months, not all VA non-surgical procedures are included; 2) All procedures from the Department of Defense facilities. Procedure Procedure Type Code Date Perfomer Comments Sourc e No data available for this section Ambulato ry Pharmacy UNLISTED VACCINE/TOXOID 2021 [facility] OPHTHALMOLOGICAL SERVICES: MEDICAL EXAMINATION AND EVALUATION WITH INITIATION OF DIAGNOSTIC AND TREATMENT PROGRAM; INTERMEDIATE, NEW PATIENT 2021 [facility] PATIENT EDUCATION, NOT OTHERWISE CLASSIFIED, NON-PHYSICIAN PROVIDER, GROUP, PER SESSION 2021 [facility] Threshold Audiogram (Pure Tone) Automated Threshold Audiogram (Pure Tone) Automated [id number] [place] [facility] Patient education, not otherwise cla ified, non-physician provider, group, per se ion [place] [facility] Ophthalmological New Patient Start Intermediate Level Care Ophthalmological New Patient Start Intermediate Level Care [address]58 MAURI JAMESON [facility] Vaccines Viral Polio, Inactivated (Salk) Vaccines Viral Polio, Inactivated (Salk) 56211 KAIA OROZCO IPV; Series #: 1; 0.5 mL; IM; Right Arm; Mfg: Violin Memory.; Lot: [id number]; VIS given (Heather: 06/03/2021; 08/12/2021 - Multiple). [facility] Vaccines Viral Varicella (Active) Vaccines Viral Varicella (Active) 40471 KAIA OROZCO Varicella; Series #: 1; 0.5 mL; SC; Right Arm; Mfg: Merck; Lot: [id number]; VIS given (Heather: 06/03/2021). [facility] Skin Test Anergy Tuberculin Intradermal Skin Test Anergy Tuberculin Intradermal 31580 KAIA OROZCO IPPD; Series #: 1; 0.1 mL; ID; Left Arm; Mfg: Sanofi Pasteur; Lot: [id number]; VIS given. [facility] Immunization Administration One Vaccine Immunization Administration One Vaccine 19677 [facility] Immunization Administration Each Additional Vaccine Immunization Administration Each Additional Vaccine 45756 [facility] Immunization Admin By Intranasal / Oral Route One Vaccine Immunization Admin By Intranasal / Oral Route One Vaccine 67856 KAIA OROZCO Juan J Sorensen Supervised Injection Intramuscular Supervised Injection Intramuscular 54147 OROZCOPERRY RabagoY Carl [facility] Venipuncture Venipuncture 99169 [facility]Y [facility] Meningococcal Polysacch Diphtheria Toxoid Conjugate Vaccine Meningococcal Polysacch Diphtheria Toxoid Conjugate Vaccine 27385 [facility] Meningococcal MCV4P (Menactra); Series #: 1; 0.5 mL; IM; Right Arm; Mfg: Sanofi Pasteur; Lot: [id number]; VIS given (Heather: 06/03/2021). [facility] Tdap Vaccine Tdap Vaccine 28006 KAIA OROZCO Tdap; Series #: 1; 0.5 mL; IM; Left Arm; Mfg: SmithKline; Lot: [id number]; VIS given (Heather: 06/03/2021). [facility] Vaccines Vaccines 68908 OROZCOKAIA DELUNA Adenovirus Type 4 and 7; Series #: 1; 2 tablets; PO; Oral; Mfg: Unknown; Lot: [id number]; VIS given (Heather: 11/05/2019). DoD Social History Combined list of available smoking, tobacco, and other social history from Department of Defense and Veterans Affairs facilities. Social History Type Response Date Comment [facility] e Sexual Orientation Ambula tory Pharmacy Gender identity Ambulator y Pharmacy Sex Representation Male (finding) Un known Organization This section is an empty soc ial history section. [facility] Assessment and Plan Combined list of future [...] disqualifying conditions. Appropriate for follow up with [place] medical providers. Documentation completed on the DD Form 2807-1 and DD Form 2808. ?Completed documentation scanned into Angie?and the originals were returned to the patient. ? Kofi Sutton PA-C 3 [facility] [place]? ? ? Extracted from:Title: [...] A Upper respiratory infection Patient presented to [facility] for COVID testing. Congestion present. [...] refill(s), Acute, 2 spray(s) Nostril-Both BID, Pharmacy: [facility] [Last filled 09/04/22] bacitracin topical(bacitracin zinc 500 units/g topical ointment), 1 appl(s), Topical, BID, # 30 g, 0 total refill(s), Acute, 1 appl(s) Topical BID, Pharmacy: [facility] [Last filled 09/04/22] pseudoephedrine-guaifenesin(Mu cinex D 60 mg-600 mg oral tablet, extended release), 1 tab(s), Oral, BID, PRN cold symptoms, # 18 tab(s), 0 total refill(s), Acute, 1 tab(s) Oral BID,PRN:as needed for cold symptoms, Pharmacy: [facility] [Last filled 09/04/22] Extracted from:Title: CASIMIRO [...] Adarsh Houston PA-C ? 09/04/22 06:29:04 ? 03/17/[address] [place] [address] Assessment and Plan Extracted from:Title : RES SEP FROM AD Author: KOFI SUTTON PA-C Date: 02/12/23 1.?EXAM, OCCUPATIONAL, SEPARATION Patient is medically fit to separate from service. ?Patient has no apparent disqualifying conditions. Appropriate for follow up with [place] medical providers. Documentation completed on the DD Form 2807-1 and DD Form 2808. ?Completed documentation scanned into Angie?and the originals were returned to the patient. ? Kofi Sutton PA-C 3 [facility]? ? ? Extracted from:Title: Covid-19, Strep A [...] A Upper respiratory infection Patient presented to [facility] for COVID testing. Congestion present. [...] refill(s), Acute, 2 spray(s) Nostril-Both BID, Pharmacy: [facility] [Last filled 09/04/22] bacitracin topical(bacitracin zinc 500 units/g topical ointment), 1 appl(s), Topical, BID, # 30 g, 0 total refill(s), Acute, 1 appl(s) Topical BID, Pharmacy: [facility] [Last filled 09/04/22] pseudoephedrine-guaifenesin(Mu cinex D 60 mg-600 mg oral tablet, extended release), 1 tab(s), Oral, BID, PRN cold symptoms, # 18 tab(s), 0 total refill(s), Acute, 1 tab(s) Oral BID,PRN:as needed for cold symptoms, Pharmacy: [facility] [Last filled 09/04/22] Extracted from:Title: CASIMIRO [...] Adarsh Houston PA-C ? 09/04/22 06:29:04 ? 03/17/[address] [place] [address] Functional Status Combined list of recent functional and cognitive assessments recorded at Department of Defense and Veterans Affairs (VA).VA Functional [place] Measurement (FIM) Scale: 1 = Total Assistance (Subject = 0% +), 2 = Maximal Assistance (Subject = 25% +), 3 = Moderate Assistance (Subject = 50% +), 4 = Minimal Assistance (Subject = 75% +), 5 = Supervision, 6 = Modified [place] (Device), 7 = Complete [place] (Timely, Safely). Assessment Date/Time Source Assessment Type Assessment Skill Assessment Score Assessment Details No data available for this section
--- OUTSIDE RECORDS SUMMARY | 2025-03-17 08:56 | XMS_ITS | Clinical Summary ---
Author Organization [facility] Address [address] [place] [address] Care Team Providers Care Medical Office Secretary Name Role Phone Chandler Raphael MD Primary Care Provider [phone] Allergies No known active allergies Medications predniSONE [...] [facility] Care Teams Medical Office Secretary Relationship Specialty Start Date End Date Chandler Raphael MD [address] [place], [place] PCP - General Pediatrics 05/01/23
== END 2025-03-17 09:10 | disposition home or self-care (01) ==
LOC: HO.PMC 08:39
PROVIDERS: PCP Nurse Practitioner Family; Referring Provider Nurse Practitioner Family; Visit Provider Nurse Practitioner Family
DX: M54.50 Low back pain, unspecified (principal); G89.29 Other chronic pain; M54.51 Vertebrogenic low back pain; M47.817 Spondylosis without myelopathy or radiculopathy, lumbosacral region; M62.830 Muscle spasm of back
CPT/HCPCS: 99204

== ENCOUNTER → 2025-03-17 08:39 | Outpatient (BNVA) | payer OTHER, SELFPAY | PROVIDERS: PCP Nurse Practitioner Family; Referring Provider Nurse Practitioner Family; Visit Provider Nurse Practitioner Family | DX: M54.50 Low back pain, unspecified (principal); M54.51 Vertebrogenic low back pain; M47.817 Spondylosis without myelopathy or radiculopathy, lumbosacral region; M62.830 Muscle spasm of back; G89.29 Other chronic pain | CPT/HCPCS: 99202 ==

== ENCOUNTER → 2025-03-25 18:42 | Outpatient (BNV) | payer OTHER, SELFPAY | PROVIDERS: PCP Nurse Practitioner Family; Visit Provider Radiology Vascular & Interventional Radiology | DX: M51.372 Other intervertebral disc degeneration, lumbosacral region with discogenic back pain and lower extremity pain (principal) | CPT/HCPCS: 72148 ==

== ENCOUNTER 2025-03-25 18:43 | Outpatient (REF) | payer OTHER, SELFPAY ==
--- NOTE | ~2025-03-25 | MR_ITS ---
CLINICAL HISTORY: M54.50 - Low back pain for 2.5 years. Pain gets worse when bending forward or sitti ng for a long time. No specific injury. Physical therapy did not help MR lumbar spine without gadolinium Comparison: None Findings: No scoliosis or spondylolisthesis. No acute fracture or pathologic bone lesion. Cauda equina and conus medullaris within normal limits. There is disc space narrowing and disc desiccation at L5-S1 with very mild bilateral neural foraminal narrowing, otherwise significant degenerative change. No central canal stenoses. Paraspinous musculature intact. IMPRESSION: Disc space narrowing at L5-S1 as detailed. This document has been electronically signed by: Ac Kim MD on 03/25/2025 19:55:04
--- OUTSIDE RECORDS SUMMARY | 2025-03-25 18:46 | XMS_ITS | Continuity of Care Document ---
Author Name [facility] Organization [facility] Care Team Providers Care Cotton Buyer Name Role Phone [facility] Unavailable Unavailable Problems Combined list of problems from Department of [facility] and Veterans Affairs facilities. It does not include entries that were removed or entered in error. Problem Status Onset Date Problem Type Date of Resolution Comments Source No Known Problems Active [place] [facility] [place] Medications Combined list of outpatient medications from Department of [facility] and Veterans Affairs facilities.Medications provided include 1) outpatient medications from the last 15 months, and 2) patient-reported medications. Medication Details Route Status Patient Instructions Prescription Expires Prescription Number Last Dispense Date Ordering Provider Order Date Order Qty Source Afrin 0.05% nasal spray 2 spray(s) , Nostril- Both, BID, # 15 mL, 0 total refill(s ), Acute, Pharmacy : [facility] Nostri l-Both (into the nose) Complet ed 09/07/2022 2 2021 15.0 0358C-[facility] bacitracin zinc 500 units/g topical ointment 1 appl(s), Topical, BID, # 30 g, 0 total refill(s ), Acute, Pharmacy : [facility] Topica l (on the skin) Complet ed 10/04/2022 2 2021 30.0 0358C-[facility] Mucinex D 60 mg-600 mg oral tablet, extended release 1 tab(s), Oral, BID, PRN cold symptoms , # 18 tab(s), 0 total refill(s ), Acute, Pharmacy : [facility] Oral (given by mouth) Complet ed 10/04/2022 2 2021 18.0 0358C-[facility] penicillin V potassium 500 mg oral tablet 1 tab(s), Oral, BID, # 20 tab(s), 0 total refill(s ), Acute, 02/12/23 6:56:36 AM CDT, Pharmacy : [facility] Oral (given by mouth) Complet ed 02/12/2023 3 2022 20.0 0091C-N [facility] Allergies, Adverse Reactions, Alerts Combined list of allergies from Department of Defense and Veterans Affairs facilities. It does not include entries that were removed or entered in error. Substance Category Reaction Severity Reaction type Status Date Reported Comments Source No Known Allergies Drug allergy (disorder) active 04/18/2023 [facility] Immunizations Combined list of available immunizations from the Department of Defense and Veterans Affairs facilities. 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 complet ed COVID Vaccine Moderna 07/25/22 Given 0358A-[facility] [place] varicella virus vaccine 2021 NOREEN Landaverde Arm [id number] Merck & Company Inc complet ed varicella virus vaccine 07/25/22 Given [facility]358[facility] [place] hepatitis B adult vaccine 2021 ANN Broussard desiree, right (delt oid) [id number] [employer] complet ed hepatitis B adult vaccine 07/25/22 Given 0358A-N [facility] [place] poliovirus vaccine, inactivated 1 2021 KAIA OROZCO [id number] Moderna US, Inc. (MOD) complet ed polioviru s vaccine, inactivat ed DoD varicella virus vaccine 1 2021 KAIA OROZCO [id number] 21 Merck (MSD) complet ed varicella virus vaccine [facility] tuberculin skin test; purified protein derivative solution, intradermal 2021 KAIA OROZCO [id number] Sanofi Pasteur (PMC) complet ed tuberculi [...] is vaccine, adsorbed 2021 KAIA OROZCO [id number] [place], [place] [address] (SKB) complet ed tetanus toxoid, reduced diphtheri a toxoid, and acellular pertussis vaccine, adsorbed DoD Adenovirus, type 4 and type 7, live, oral 1 2021 KAIA OROZCO [id number] 143 Unknown (UNK) complet ed Adenoviru s, type 4 and type 7, live, oral DoD Hepatitis B vaccine (recombinant) , CpG adjuvanted 1 2021 KAIA OROZCO [id number] 189 [employer]. (DVX) complet ed Hepatitis B vaccine (recombin ant), CpG adjuvante d DoD SARS-COV-2 (COVID-19) vaccine, mRNA, spike protein, LNP, preservative free, 100 mcg or 50 mcg dose 1 2021 KAIA OROZCO [id number] [employer] (MOD) complet ed SARS-COV- 2 (COVID-19 [...] The Aptima SARS-CoV-2 assay performed on the [employer] system is a nucleic acid amplificatio n [...] Blood Pressure 116 mm[Hg] 09/04/20 22 11:17:00 0358C[facility] Diastolic Blood Pressure 76 mm[Hg] 022 11:17:00 [facility] Respiratory Rate 16 br/min 09/04/2022 11:17:00 0358C[facility] Peripheral Pulse Rate 84 bpm 09/04/2022 11:17:00 0358C[facility] Mean Arterial Pressure, Calc 89 mm[Hg] 09/04/2022 11:17:00 0[facility] Blood Pressure Manual Automatic 09/04/2022 11:17:00 0[facility] BP Site Left arm 09/04/2022 11:17:00 0358C[facility] [place] Temperature Oral 37.4 Lizy 09/04/2022 11:17:00 0358C[facility] Peripheral Pulse Rate 85 bpm 11/14/2022 [...] ADM Date DC Date Status Disposition Source [facility] Ekta diaz([facility]) OUTPATIENT [id number] POLLY RANKIN 06/22 Released w/o Limitations [facility] Crispin dominique([facility]) [facility] Ekta diaz([facility]) OUTPATIENT [id number] JELANI HERNANDEZ 06/22 Released w/o Limitations [facility] Crispin dominique([facility]) [facility] Ekta n([facility] [employer]) OUTPATIENT [id number] FIRST VISIT FOR IMMUNIZ ATMONICA SAMANIEGO 06/26 Released w/o Limitations [facility] Crispin dominique([facility] D [employer] ) [facility] Ekta diaz([facility] Fourth BN BAS) OUTPATIENT [id number] Notes Entered by: ME ZITA LEON 04 Jul 2022 0855 ------- ------- ------- ------- -- G URI sx DESHAUN LEON 07/04 Sick at Home/Quarter s [facility] Crispin dominique([facility] Fourth BN BAS) Procedures Combined list of: 1) Procedures from Department of Veterans Affairs facilities going back up to thelast 18 months, not all VA non-surgical procedures are included; 2) All procedures from the Department of Defense facilities. Procedure Procedure Type Code Date Perfomer Comments Sourc e No data available for this section Ambulato ry Pharmacy UNLISTED VACCINE/TOXOID 2021 [facility] OPHTHALMOLOGICAL SERVICES: MEDICAL EXAMINATION AND EVALUATION WITH INITIATION OF DIAGNOSTIC AND TREATMENT PROGRAM; INTERMEDIATE, NEW PATIENT 2021 [facility] PATIENT EDUCATION, NOT OTHERWISE CLASSIFIED, NON-PHYSICIAN PROVIDER, GROUP, PER SESSION 2021 [facility] Threshold Audiogram (Pure Tone) Automated Threshold Audiogram (Pure Tone) Automated [id number] [place] [facility] Patient education, not otherwise cla ified, non-physician provider, group, per se ion [place] [facility] Ophthalmological New Patient Start Intermediate Level Care Ophthalmological New Patient Start Intermediate Level Care [id number] MAURI JAMESON [facility] Vaccines Viral Polio, Inactivated (Salk) Vaccines Viral Polio, Inactivated (Salk) 07226 KAIA OROZCO IPV; Series #: 1; 0.5 mL; IM; Right Arm; Mfg: LS9.; Lot: [id number]; VIS given (Heather: 06/03/2021; 08/12/2021 - Multiple). [facility] Vaccines Viral Varicella (Active) Vaccines Viral Varicella (Active) 60050 KAIA OROZCO Varicella; Series #: 1; 0.5 mL; SC; Right Arm; Mfg: Merck; Lot: [id number]; VIS given (Heather: 06/03/2021). [facility] Skin Test Anergy Tuberculin Intradermal Skin Test Anergy Tuberculin Intradermal 59336 KAIA OROZCO IPPD; Series #: 1; 0.1 mL; ID; Left Arm; Mfg: Sanofi Pasteur; Lot: [id number]; VIS given. [facility] Immunization Administration One Vaccine Immunization Administration One Vaccine 57906 [facility] Immun[facility] Administration Each Additional Vaccine Immunization Administration Each Additional Vaccine 34833 [facility]COPERRY [facility] Immunization Admin By Intranasal / Oral Route One Vaccine Immunization Admin By Intranasal / Oral Route One Vaccine 48845 KAIA OROZCO Juan J Sorensen Supervised Injection Intramuscular Supervised Injection Intramuscular 49590 OROZCOPERRY RabagoY Carl [facility] Venipuncture Venipuncture 18107 [facility]COPERRY [facility] Meningococcal Polysacch Diphtheria Toxoid Conjugate Vaccine Meningococcal Polysacch Diphtheria Toxoid Conjugate Vaccine 43976 [facility] Meningococcal MCV4P (Menactra); Series #: 1; 0.5 mL; IM; Right Arm; Mfg: Sanofi Pasteur; Lot: [id number]; VIS given (Heather: 06/03/2021). [facility] Tdap Vaccine Tdap Vaccine 81475 KAIA OROZCO Tdap; Series #: 1; 0.5 mL; IM; Left Arm; Mfg: SmithKline; Lot: [id number]; VIS given (Heather: 06/03/2021). [facility] Vaccines Vaccines 74578 OROZCOKAIA DELUNA Adenovirus Type 4 and 7; Series #: 1; 2 tablets; PO; Oral; Mfg: Unknown; Lot: [id number]; VIS given (Heather: 11/05/2019). [employer] Social History Combined list of available smoking, tobacco, and other social history from Department of Defense and Veterans Affairs facilities. Social History Type Response Date Comment [facility] e Sexual Orientation Ambula tory Pharmacy Gender identity Ambulator y Pharmacy Sex Representation Male (finding) Un known Organization This section is an empty soc ial history section. [facility] Assessment and Plan Combined list of [...] disqualifying conditions. Appropriate for follow up with [place] medical providers. Documentation completed on the DD Form 2807-1 and DD Form 2808. ?Completed documentation scanned into Angie?and the originals were returned to the patient. ? Kofi Sutton PA-C 3 [facility] [place]? ? ? Extracted from:Title: [...] A Upper respiratory infection Patient presented to [facility] for COVID testing. Congestion present. Pt [...] refill(s), Acute, 2 spray(s) Nostril-Both BID, Pharmacy: [facility] [Last filled 09/04/22] bacitracin topical(bacitracin zinc 500 units/g topical ointment), 1 appl(s), Topical, BID, # 30 g, 0 total refill(s), Acute, 1 appl(s) Topical BID, Pharmacy: [facility] [Last filled 09/04/22] pseudoephedrine-guaifenesin(Mu cinex D 60 mg-600 mg oral tablet, extended release), 1 tab(s), Oral, BID, PRN cold symptoms, # 18 tab(s), 0 total refill(s), Acute, 1 tab(s) Oral BID,PRN:as needed for cold symptoms, Pharmacy: [facility] [Last filled 09/04/22] Extracted from:Title: CASIMIRO [...] Adarsh Houston PA-C ? 09/04/22 06:29:04 ? 03/25/[address] [place] [address] Assessment and Plan Extracted from:Title : RES SEP FROM AD Author: KOFI SUTTON PA-C Date: 02/12/23 1.?EXAM, OCCUPATIONAL, SEPARATION Patient is medically fit to separate from service. ?Patient has no apparent disqualifying conditions. Appropriate for follow up with [place] medical providers. Documentation completed on the DD Form 2807-1 and DD Form 2808. ?Completed documentation scanned into Angie?and the originals were returned to the patient. ? Kofi Sutton PA-C 3 [facility]? ? ? Extracted from:Title: Covid-19, Strep A [...] A Upper respiratory infection Patient presented to [facility] for COVID testing. Congestion present. Pt [...] refill(s), Acute, 2 spray(s) Nostril-Both BID, Pharmacy: [facility] [Last filled 09/04/22] bacitracin topical(bacitracin zinc 500 units/g topical ointment), 1 appl(s), Topical, BID, # 30 g, 0 total refill(s), Acute, 1 appl(s) Topical BID, Pharmacy: [facility] [Last filled 09/04/22] pseudoephedrine-guaifenesin(Mu cinex D 60 mg-600 mg oral tablet, extended release), 1 tab(s), Oral, BID, PRN cold symptoms, # 18 tab(s), 0 total refill(s), Acute, 1 tab(s) Oral BID,PRN:as needed for cold symptoms, Pharmacy: [facility] [Last filled 09/04/22] Extracted from:Title: CASIMIRO [...] Adarsh Houston PA-C ? 09/04/22 06:29:04 ? 03/25/[address] [place] [address] Functional Status Combined list of recent functional and cognitive assessments recorded at Department of Defense and Veterans Affairs (VA).VA Functional [place] Measurement (FIM) Scale: 1 = Total Assistance (Subject = 0% +), 2 = Maximal Assistance (Subject = 25% +), 3 = Moderate Assistance (Subject = 50% +), 4 = Minimal Assistance (Subject = 75% +), 5 = Supervision, 6 = Modified Caspar (Device), 7 = Complete [place] (Timely, Safely). Assessment Date/Time Source Assessment Type Assessment Skill Assessment Score Assessment Details No data available for this section
== END 2025-03-25 18:44 | disposition home or self-care (01) ==
LOC: HO.MRI 18:43
PROVIDERS: PCP Nurse Practitioner Family; Visit Provider Nurse Practitioner Family
DX: M54.50 Low back pain, unspecified (principal); M54.51 Vertebrogenic low back pain; G89.29 Other chronic pain; M47.817 Spondylosis without myelopathy or radiculopathy, lumbosacral region
CPT/HCPCS: 72148

== ENCOUNTER 2025-04-02 13:35 | Outpatient (AMB) | payer OTHER, SELFPAY ==
[2025-04-02 13:39] VITALS: BP 145/67; PULSE 72; O2SAT 100; BMI 24.9
--- NOTE | 2025-04-02 13:39 | A.OFFVIS_ITS ---
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 He reports that the condition has progressively worsened due to work-related heavy lifting associated with his role in the [employer]. The pain primarily involves the lower back and has caused significant functional limitation, particularly with tasks involving bending and reaching. Despite adherence to a physical therapy regimen, significant pain relief remains elusive. An MRI was conducted, showing degenerative changes at the L5-S1 disc with mild bulging and disc desiccation, yet without evidence of significant compressive pathology or stenotic changes. The patient has trialed non-steroidal anti- inflammatory drugs (NSAIDs) like meloxicam, reporting mild to moderate symptomatic relief. The patient's condition has notably impacted his daily activities and sleep, contributing to a desire for further evaluation and alternative management strategies. PRIOR: The patient is a 24-year-old male presenting with chronic low back pain. 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 Initially, the pain was sharp, evolving into an aching sensation at the lower spine and around waistline, alternating sides without clear lateralization. The pain has worsened consistently and is aggravated by activities such as forward bending, certain gym exercises, prolonged sitting, and during specific movements such as lateral bending or twisting, with relief noted upon standing upright and walking. He has been under various conservative treatments including physical therapy for 3.5 months and acupuncture through [facility] and [facility] in [place], with transient relief but no lasting improvement. Despite using analgesics and topical agents, he continues to experience persistent discomfort rated between 3-6/10, with increased intensity during lifting or bending, predominantly aching and discogenic in nature. The absence of radiating pain or significant neurological symptoms is noted. An X-ray revealed mild facet arthropathy, and an MRI has not yet been obtained. The patient experienced no severe adverse effects from past muscle relaxants and does not have significant back red-flag symptoms. His background includes a brief period of smoking, and he currently consumes alcohol socially. Disturbed sleep patterns may be related to the pain, thus affecting daily life and functionality. - Onset: Approximately two to two and a half years ago - Quality: Initially piercing, now aching and sometimes sharp, stabbing, heavy, cramping, spasming - Location: Lower back below the waistline, alternating sides - Exacerbating Factors: Forward bending, specific gym movements, lateral movements, prolonged sitting - Relieving Factors: Standing, walking - Pain Ratin to 6 out of 10 - Consistency: Persistent, varying with activity - Affect: Sleep disruptions possibly related to pain - Analgesia: Previously attempted Tylenol, ibuprofen, tizanidine, acupuncture with temporary relief - Adverse Effects: No significant side effects noted with past use of muscle relaxant - Activities of Daily Living: Limited ability to perform heavy lifting and certain movements - Aberrant Drug Related Behaviors: None reported Oswestry Low Back Pain Disability Score=7 [facility] Medical History activity status Low back pain No pertinent past medical history Surgical History No pertinent past surgical history Family History Brother Mental health disorder Paternal Grandfather Substance abuse Cancer Paternal Grandmother Substance abuse Cancer Maternal Grandmother Cancer Cardiovascular disease Mother Cardiovascular disease Social History Household Members: Other Household Members Other:: roomates Both parents involved: No Caregiver staying overnight: No Housing: Apartment Are you a primary care administrative tech to a significant other at home: No Do you presently have visiting nurse or other home services: No 75 years or older and lives alone: No Alcohol intake: current Alcohol intake frequency: a few times a month Patient Tobacco Use Status: Former Tobacco user Tobacco use type: Cigarette e-Cigarette/Vaping Use: Never Used Second Hand Smoke Exposure: No service: Yes Current occupational status: student Cognitive needs: No Hearing needs: No Vision needs: No Review of Systems Const Details: - Musculoskeletal: Reports lower back pain, exacerbated by physical activities involving lifting and bending. - Neurological: Denies radiation of pain to legs or neurological deficits. All systems reviewed & are unremarkable except as noted in HPI and below Physical Exam Vital Signs: Last Vital Signs Pulse 72 04/02/25 13:39 BP 145/67 H 04/02/25 13:39 Pulse Ox 100 04/02/25 13:39 Oxygen Delivery Method Room Air 04/02/25 13:39 BMI result Body Mass Index 24.9 General: Appears afebrile. Alert and oriented. Mood and affect appropriate. Follows and participates in conversation appropriately. Respiratory effort is unlabored. No cough. Able to transition from sit to stand unassisted. Ambulates with bilaterally normal heel strike and toe off. General: Yes no CVA tenderness Back/Spine/Pelvis Other: Limited lumbar ROM due to pain. Normal gait, no limping. Lumbar flexion is intact and does not reproduce pain, lumbar flexion and forward bending reproduces moderate pain. Demonstrates 5/5 strength of quadriceps bilaterally as well as flexion/dorsiflexion of bilateral feet against resistance. 2+ pedal pulses bilaterally. Straight leg rise with dorsiflexion negative bilaterally. +2 patellar and achilles reflexes bilaterally. Facet loading test positive b ilaterally. Lester sign, Raheel?s and Stinchfield tests are negative bilaterally. No groin pain with I/E hip rotations. Valsalva maneuver negative. Back: no CVA tenderness Cervical Spine: normal cervical lordosis, cervical ROM normal, cervical muscular tenderness, No Cervical spine scars present and No Cervical spine tenderness Thoracic/Lumbar Spine: thoracic and lumbar spine normal to inspection, No Thoracic/lumbar spine scar(s), Lasegue's sign negative, straight leg raise negative bilaterally, pain with thoraco-lumbar ROM, paraspinal muscle tenderness on the right greater than left, thoraco-lumbar ROM limited, No thoracic spinal tenderness and lumbar spinal tenderness (L4-S1) Pelvis: no buttock tenderness Sacroiliac joints: bilaterally nontender Extrem General: Yes capillary refill normal, Yes no clubbing, cyanosis or edema and Yes no calf tenderness Results Reviewed Results Reviewed: XR lumbar spine 4V min 11/07/24 Comparison: None Findings: No syndesmophytes or osseous ankylosis at this time. Question mild facet arthropathy of the lumbosacral junction with partial obscuration of the L5 pars. No definite lysis. Normal heights of 5 lumbar vertebrae without significant listhesis. Sacrum and SI joints are partly obscured. Phleboliths noted in the pelvis. Moderate bowel gas and mild-moderate stool burden in the [id number]. IMPRESSION: 1. Normal heights of 5 lumbar vertebrae without significant listhesis. 2. No osseous ankylosis or syndesmophytes at this time. XR sacroiliac joint min 3V 11/07/24 Comparison: None Findings Anatomic alignment of the imaged SI joints. No diastasis, erosions, or osseous ankylosis. Portions of the sacrum and SI joints are obscured with moderate bowel gas in the [id number]. Phleboliths are noted in the pelvis. IMPRESSION: No osseous ankylosis or erosions of the imaged SI joints. MR lumbar spine wo con 03/25/25 CLINICAL HISTORY: M54.50 - Low back pain for 2.5 years. Pain gets worse when bending forward or sitting for a long time. No specific injury. Physical therapy did not help MR lumbar spine without gadolinium Comparison: None Findings: No scoliosis or spondylolisthesis. No acute fracture or pathologic bone lesion. Cauda equina and conus medullaris within normal limits. There is disc space narrowing and disc desiccation at L5-S1 with very mild bilateral neural foraminal narrowing, otherwise significant degenerative change. No central canal stenoses. Paraspinous musculature intact. IMPRESSION: Disc space narrowing at L5-S1 as detailed. Assessment & Plan Assessment & Plan (1) Low back pain: Code(s): M54.50 - Low back pain, unspecified Category: Medical Qualifiers: Back pain laterality: midline Chronicity: chronic Sciatica presence: without sciatica Qualified Code(s): M54.50 - Low back pain, unspecified; G89.29 - Other chronic pain (2) Vertebrogenic low back pain: Code(s): M54.51 - Vertebrogenic low back pain Category: Medical (3) Lumbosacral spondylosis: Code(s): M47.817 - Spondylosis without myelopathy or radiculopathy, lumbosacral region Category: Medical (4) Muscle spasm of back: Code(s): M62.830 - Muscle spasm of back Category: Medical Plan To address the patient's back pain associated with degenerative disc disease at L5-S1, I plan to continue with conservative management. This includes prescribing a Medrol pack as an oral corticosteroid to gauge response and potentially alleviate symptoms. A referral for chiropractic therapy in addition to ongoing physical therapy was made, aiming to optimize pain management and taoism of function. Additionally, a functional capacity assessment will be used to evaluate his activity limitations comprehensively, which can further guide work-related duties and possible light-duty recommendations. The plan aims to improve pain levels and functional capacity progressively. All questions and concerns have been answered and patient agreed with the plan. Follow up as needed. Patient was informed and verbally consented to the use of an ambient scribe for clinic note documentation during this visit. Orders: Orders Functional Capacity Exam Today G89.29 - Other chronic pain, M47.817 - Spondylosis without myelopathy or radiculopathy, lumbosacral region, M54.50 - Low back pain, unspecified, M54.51 - Vertebrogenic low back pain, M62.830 - Muscle spasm of back Referrals Chiropractic Referral G89.29 - Other chronic pain, M47.817 - Spondylosis without myelopathy or radiculopathy, lumbosacral region, M54.50 - Low back pain, unspecified, M54.51 - Vertebrogenic low back pain, M62.830 - Muscle spasm of back Medications: New methylprednisolone (Medrol (Nic)) PO PER PKG DIR 21 ea 0RF pain G89.29 - Other chronic pain, M54.50 - Low back pain, unspecified, M54.51 - Vertebrogenic low back pain Patient Instructions: I thoroughly reviewed the MRI findings with the patient, detailing the presence of mild disc degeneration and explaining why surgical intervention is not indicated at this time. We discussed the potential benefits and limitations of a Medrol pack as a conservative oral corticosteroid treatment. I emphasized the importance of continued physical therapy and the potential complement of gentle chiropractic therapy. Patient will also undergo a functional capacity assessment to assist him with functional limitations for responsibilities. Coding Level of Care Code Est Pt Level 4 (40882) Complex EM visit Add On G2211 Diagnoses Chronic midline low back pain without sciatica M54.50; G89.29 Back pain laterality: midline Chronicity: chronic Sciatica presence: without sciatica Vertebrogenic low back pain M54.51 Lumbosacral spondylosis M47.817 Muscle spasm of back M62.830
--- OUTSIDE RECORDS SUMMARY | 2025-04-02 16:08 | XMS_ITS | Continuity of Care Document ---
Author Name [facility] Organization [facility] Care Team Providers Care Meter Attendant Name Role Phone [facility] Unavailable Unavailable Problems Combined list of problems from Department of [facility] and Veterans Affairs facilities. It does not include entries that were removed or entered in error. Problem Status Onset Date Problem Type Date of Resolution Comments Source No Known Problems Active Condition [facility]91C[facility] [place] Medications Combined list of outpatient medications from Department of [facility] and Veterans Affairs facilities.Medications provided include 1) outpatient medications from the last 15 months, and 2) patient-reported medications. Medication Details Route Status Patient Instructions Prescription Expires Prescription Number Last Dispense Date Ordering Provider Order Date Order Qty Source Afrin 0.05% nasal spray 2 spray(s) , Nostril- Both, BID, # 15 mL, 0 total refill(s ), Acute, Pharmacy : [facility] Nostri l-Both (into the nose) Complet ed 09/07/2022 2 2021 15.0 0358C-N [facility] bacitracin zinc 500 units/g topical ointment 1 appl(s), Topical, BID, # 30 g, 0 total refill(s ), Acute, Pharmacy : [facility] Topica l (on the skin) Complet ed 10/04/2022 2 2021 30.0 0358C-N [facility] Mucinex D 60 mg-600 mg oral tablet, extended release 1 tab(s), Oral, BID, PRN cold symptoms , # 18 tab(s), 0 total refill(s ), Acute, Pharmacy : [facility] Oral (given by mouth) Complet ed 10/04/2022 2 2021 18.0 0358C-N [facility] penicillin V potassium 500 mg oral tablet 1 tab(s), Oral, BID, # 20 tab(s), 0 total refill(s ), Acute, 02/12/23 6:56:36 AM CDT, Pharmacy : [facility] Oral (given by mouth) Complet ed 02/12/2023 3 2022 20.0 0091C-[facility] Allergies, Adverse Reactions, Alerts Combined list of allergies from Department of Defense and Veterans Affairs facilities. It does not include entries that were removed or entered in error. Substance Category Reaction Severity Reaction type Status Date Reported Comments Source No Known Allergies Drug allergy (disorder) active 04/18/2023 [facility] Immunizations Combined list of available immunizations from the Department of Defense and Veterans Affairs facilities. Immunization Series Date Given Administered By Site Reaction Lot Number CVX Code Drug [facility] Director Status Comments Source influenza virus vaccine, inactivated 2021 NOREEN Broussard desiree, left (delt oid) [id number] ID Kuona Michael complet ed influenza virus vaccine, inactivat ed 09/06/22 Given 0358A-N [facility] [place] COVID Vaccine Moderna 2021 JESUS Broussard desiree, left (delt oid) [id number] Moderna [place], Inc. complet ed COVID Vaccine Moderna 07/25/22 Given 0358A-N [facility] [place] varicella virus vaccine 2021 NOREEN Landaverde Arm [id number] Merck & Company Inc complet ed varicella virus vaccine 07/25/22 Given 0358A-[facility] [place] hepatitis B adult vaccine 2021 ANN Broussard desiree, right (delt oid) [id number] TUNJI complet ed hepatitis B adult vaccine 07/25/22 Given 0358A-N [facility] [place] poliovirus vaccine, inactivated 1 2021 KAIA OROZCO [id number] Moderna [place], Inc. (MOD) complet ed polioviru s vaccine, inactivat ed DoD varicella virus vaccine 1 2021 KAIA OROZCO [id number] 21 Merck (MSD) complet ed varicella virus vaccine [facility] tuberculin skin test; purified protein derivative solution, intradermal 2021 KAIA OROZCO [id number] Sanofi Pasteur (PMC) complet ed tuberculi [...] is vaccine, adsorbed 2021 KAIA OROZCO [id number] [place], [place] [address]Bass Manager (SKB) complet ed tetanus toxoid, reduced diphtheri a toxoid, and acellular pertussis vaccine, adsorbed DoD Adenovirus, type 4 and type 7, live, oral 1 2021 KAIA OROZCO [id number] 143 Unknown (UNK) complet ed Adenoviru s, type 4 and type 7, live, oral DoD Hepatitis B vaccine (recombinant) , CpG adjuvanted 1 2021 KAIA OROZCO [id number] 189 [employer]. (DVX) complet ed Hepatitis B vaccine (recombin ant), CpG adjuvante d DoD SARS-COV-2 (COVID-19) vaccine, mRNA, spike protein, LNP, preservative free, 100 mcg or 50 mcg dose 1 2021 KAIA OROZCO [id number] [employer] (MOD) complet ed SARS-COV- 2 (COVID-19 [...] 1:33 PM) 11/14 N 0091A-NM C Madi Eiml Molecular Infectiou s Disease SARS-CoV -2 PCR [...] The Aptima SARS-CoV-2 assay performed on the BULX system is a nucleic acid amplificatio n [...] 1:33 PM) 11/14 A 0091A-NM C Madi Steni Vital Signs Combined list of inpatient and outpatient Vital Signs from Department of Defense and Veterans Affairs, ranging from 12 months to all on record, depending upon the facility. Vital Sign Value Date Comments Source Systolic Blood Pressure 116 mm[Hg] 09/04/20 22 11:17:00 0358C[facility] [facility] Diastolic Blood Pressure 76 mm[Hg] 022 [facility]:17[facility] 16 br/min 09/04/2022 11:17:00 [facility] Peripheral Pulse Rate 84 bpm 09/04/2022 11:17:00 0358C[facility] Mean Arterial Pressure, Calc 89 mm[Hg] 09/04/2022 11:17:00 0358C[facility] Blood Pressure Manual Automatic 09/04/2022 11:17:00 0358C[facility] BP Site Left arm 09/04/2022 11:17:00 0358C[facility] [place] Temperature Oral 37.4 Lizy 09/04/2022 11:17:00 0358C[facility] Peripheral Pulse Rate 85 bpm 11/14/2022 15:55:00 [facility] [place] Blood Pressure Manual Automatic 11/14/2022 15:55:00 [facility] [place] Systolic Blood Pressure 133 mm[Hg] 11/14/19 23 15:55:00 [facility] [place] Diastolic Blood Pressure 74 mm[Hg] 023 15:55:00 [facility] [place] Respiratory Rate 16 br/min 11/14/2022 15:55:00 [facility] [place] Temperature Oral 36.7 Lizy 11/14/2022 15:55:00 [facility] [place] BP Site Right arm 11/14/2022 15:55:00 [facility] [...] ADM Date DC Date Status Disposition Source [facility] Ekta diaz([facility] ion) OUTPATIENT [id number] POLLY RANKIN 06/22 Released w/o Limitations [facility] Crispin dominique([facility]) [facility] Ek[facility] d[facility]) OUTPATIENT [id number] JELANI HERNANDEZ 06/22 Released w/o Limitations [facility] Crispin dominique(MCR D Optomet ry Clinic) [facility] Ekta diaz([facility] [employer]) OUTPATIENT [id number] FIRST VISIT FOR IMMUNIZ MONICA SILVERIO 06/26 Released w/o Limitations [facility] Crispin dominique([facility] D [employer] ) [facility] Ekta diaz([facility] Fourth BN BAS) OUTPATIENT [id number] Notes Entered by: ME ZITA LEON 04 Jul 2022 0855 ------- ------- ------- ------- -- URI sx EDWARD DESHAUN Levy 07/04 Sick at Home/Quarter s [facility] Crispin dominique([facility] Fourth BN BAS) Procedures Combined [...] Audiogram (Pure Tone) Automated [id number] [place] [facility] Patient education, not otherwise cla ified, non-physician provider, group, per se ion [place] [facility] Ophthalmological New Patient Start Intermediate Level Care Ophthalmological New Patient Start Intermediate Level Care [id number] MAURI JAMESON [facility] Vaccines Viral Polio, Inactivated (Salk) Vaccines Viral Polio, Inactivated (Salk) 74916 KAIA OROZCO IPV; Series #: 1; 0.5 mL; IM; Right Arm; Mfg: [employer], Inc.; Lot: [id number]; VIS given (Heather: 06/03/2021; 08/12/2021 - Multiple). [facility] Vaccines Viral Varicella (Active) Vaccines Viral Varicella (Active) 84572 KAIA OROZCO Varicella; Series #: 1; 0.5 mL; SC; Right Arm; Mfg: Merck; Lot: [id number]; VIS given (Heather: 06/03/2021). [facility] Skin Test Anergy Tuberculin Intradermal Skin Test Anergy Tuberculin Intradermal 41248 KAIA OROZCO IPPD; Series #: 1; 0.1 mL; ID; Left Arm; Mfg: Sanofi Pasteur; Lot: [id number]; VIS given. [facility] Immunization Administration One Vaccine Immunization Administration One [facility] Administration Each Additional Vaccine Immunization Administration Each Additional Vaccine 75321 [facility] Immunization Admin By Intranasal / Oral Route One Vaccine Immunization Admin By Intranasal / Oral Route One Vaccine 32535 [facility] Juan J Sorensen Supervised Injection Intramuscular Supervised Injection Intramuscular 25249 [facility] Venipuncture Venipuncture 68929 [facility] Meningococcal Polysacch Diphtheria Toxoid Conjugate Vaccine Meningococcal Polysacch Diphtheria Toxoid Conjugate Vaccine 78294 [facility] Meningococcal MCV4P (Menactra); Series #: 1; 0.5 mL; IM; Right Arm; Mfg: Sanofi Pasteur; Lot: [id number]; VIS given (Heather: 06/03/2021). [facility] Tdap Vaccine Tdap Vaccine 35029 [facility] Tdap; Series #: 1; 0.5 mL; IM; Left Arm; Mfg: SmithKline; Lot: [id number]; VIS given (Heather: 06/03/2021). [facility] Vaccines Vaccines 48379 [facility] KAIA S Adenovirus Type 4 and 7; Series #: 1; 2 tablets; PO; Oral; Mfg: Unknown; Lot: [id number]; VIS given (Heather: 11/05/2019). [facility] UNLISTED VACCINE/TOXOID 2021 [facility] OPHTHALMOLOGICAL SERVICES: MEDICAL EXAMINATION AND EVALUATION WITH INITIATION OF DIAGNOSTIC AND TREATMENT PROGRAM; INTERMEDIATE, NEW PATIENT 2021 [facility] PATIENT EDUCATION, NOT OTHERWISE CLASSIFIED, NON-PHYSICIAN PROVIDER, GROUP, PER SESSION 2021 [facility] Social History Combined list of available smoking, tobacco, and other social history from Department of Defense and Veterans Affairs facilities. Social History Type Response Date Comment [facility] e Sexual Orientation Ambula tory Pharmacy Gender identity Ambulator y Pharmacy Sex Representation Male (finding) Un known Organization This section is an empty soc ial history section. [facility] Assessment and Plan Combined list of [...] ? Kofi Sutton PA-C 3 [facility] [place]? ? ? Extracted from:Title: [...] A Upper respiratory infection Patient presented to [facility] for COVID testing. Congestion present. [...] refill(s), Acute, 2 spray(s) Nostril-Both BID, Pharmacy: [facility] [Last filled 09/04/22] bacitracin topical(bacitracin zinc 500 units/g topical ointment), 1 appl(s), Topical, BID, # 30 g, 0 total refill(s), Acute, 1 appl(s) Topical BID, Pharmacy: [facility] [Last filled 09/04/22] pseudoephedrine-guaifenesin(Mu cinex D 60 mg-600 mg oral tablet, extended release), 1 tab(s), Oral, BID, PRN cold symptoms, # 18 tab(s), 0 total refill(s), Acute, 1 tab(s) Oral BID,PRN:as needed for cold symptoms, Pharmacy: [facility] [Last filled 09/04/22] Extracted [...] Adarsh Houston PA-C ? 09/04/22 06:29:04 ? 04/02/[address] [place] [address] Assessment and Plan Extracted from:Title : RES [...] the patient. ? Kofi Sutton PA-C 3 [facility]? ? ? Extracted from:Title: Covid-19, Strep A [...] A Upper respiratory infection Patient presented to [facility] for COVID testing. Congestion present. [...] refill(s), Acute, 2 spray(s) Nostril-Both BID, Pharmacy: [facility] [Last filled 09/04/22] bacitracin topical(bacitracin zinc 500 units/g topical ointment), 1 appl(s), Topical, BID, # 30 g, 0 total refill(s), Acute, 1 appl(s) Topical BID, Pharmacy: [facility] [Last filled 09/04/22] pseudoephedrine-guaifenesin(Mu cinex D 60 mg-600 mg oral tablet, extended release), 1 tab(s), Oral, BID, PRN cold symptoms, # 18 tab(s), 0 total refill(s), Acute, 1 tab(s) Oral BID,PRN:as needed for cold symptoms, Pharmacy: [facility] [Last filled 09/04/22] Extracted [...] Adarsh Houston PA-C ? 09/04/22 06:29:04 ? 04/02/2025 [id number] Functional Status Combined list of recent functional and cognitive assessments recorded at Department of Defense and Veterans Affairs (VA).[facility] Functional [place] Measurement (FIM) Scale: 1 = Total Assistance (Subject = 0% +), 2 = Maximal Assistance (Subject = 25% +), 3 = Moderate Assistance (Subject = 50% +), 4 = Minimal Assistance (Subject = 75% +), 5 = Supervision, 6 = Modified [place] (Device), 7 = Complete [place] (Timely, Safely). Assessment Date/Time Source Assessment Type Assessment Skill Assessment Score Assessment Details No data available for this section
== END 2025-04-02 14:01 | disposition home or self-care (01) ==
LOC: HO.PMC 13:36
PROVIDERS: PCP Nurse Practitioner Family; Visit Provider Nurse Practitioner Family
DX: M54.50 Low back pain, unspecified (principal); G89.29 Other chronic pain; M54.51 Vertebrogenic low back pain; M47.817 Spondylosis without myelopathy or radiculopathy, lumbosacral region; M62.830 Muscle spasm of back
CPT/HCPCS: 99214; G2211

== ENCOUNTER → 2025-04-02 13:35 | Outpatient (BNVA) | payer OTHER, SELFPAY | PROVIDERS: PCP Nurse Practitioner Family; Visit Provider Nurse Practitioner Family | DX: M54.50 Low back pain, unspecified (principal); M54.51 Vertebrogenic low back pain; M47.817 Spondylosis without myelopathy or radiculopathy, lumbosacral region; M62.830 Muscle spasm of back; G89.29 Other chronic pain | CPT/HCPCS: 99212 ==

== ENCOUNTER 2025-04-10 13:12 | Outpatient (AMB) | payer OTHER, SELFPAY ==
--- NOTE | 2025-04-10 13:14 | A.OFFPC_ITS ---
Vital Signs 04/10/25 13:18 Height 5 ft 7 in Weight 162 lb BMI 25.4 BP 122/68 Blood Pressure Location Lt brachial Position Sitting Respiration 12 Pulse 61 Pulse Source Pulse Oximeter Temp 96.9 F Temp Source Oral Pulse Oximetry (%) 97 Oxygen Delivery Method Room Air Intake Visit Reasons: Letter for about back Intake Note: Patient in need of a letter regarding his back issues. Reinspector Required: No Allergies No Known Allergies Allergy (Verified 04/10/25 13:15) Medication List - Last Reconciled 04/10/25 by Tila Lofton, [employer]- ibuprofen 800 mg PO Q8H PRN lidocaine 5% 1 patch topical DAILY 30 days multivitamin 1 tab PO DAILY Tobacco use date assessed: 04/10/25 Dental Screening Dental Screen Date: 04/10/25 Did you have a dental visit in the last 12 months?: Yes Did you have a dental problem in the last 6 months where you did not have access to dental care?: No Was dental information given to patient?: Patient has dentist HPI HPI Comments History of Present Illness Details 24-year-old male with no significant med ical history 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 Oct 2024: Presenting with lower back pain. 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 The patient describes the pain as being located on both sides but more pronounced on the left side, without radiating outwards. It is constant throughout the day and exacerbated by physical activities such as lifting weights, bending over, and specific sitting positions, e.g., in a car. No relief has been found with the use of Tylenol, ibuprofen, heating pads, or topical analgesics like Salonpas. The pain began aft er a specific training exercise, involving log runs while stationed in [place]. The patient has not reported any traumatic injury. No other treatments have been pursued outside self-care measures, and no imaging studies have previously been performed. Pain does not radiate to the legs, and there are no alterations in urination or abdominal pain. No red flag signs assoc w/ back pain. Today: - Previous MRI showed a small disc bulge and arthritis. See results below - Experienced increased pain and insomni a after starting steroids, which were subsequently ceased. - Regular flare-ups occur with physical activities like bending, running with heavy gear, and during shooting range activities. - Physical therapy ongoing with targeted exercises and caution advised against s pine loading. - Using meloxicam sparingly with + relie f - Concern about prolonged deterioration leading to potential surgical intervention if untreated. - [place] [facility] [place] see details of note below - Still in PT; will start chiro next wee k - Needs a letter for me for limited duty for ; was referred to [facility] by Pain Mgmt but told they no longer do these exams. Review of Systems - Constitutional: Denies current fever o r weight changes. - Musculoskeletal: Reports lower back pa in worsening with bending forward or physical exertion; ongoing physical therapy. - Neurological: Denies numbness or tingl ing; insomnia noted. - Gastrointestinal: Denies nausea or abd ominal pain. - General: Reports insomnia associated w ith medication side effects. Physical Exam General: Awake, alert. No apparent distress Eyes: Sclera and conjunctiva clear bilaterally, PERRLA Neck FROM Lumbar and sacral spinal tenderness w/ palpation, worse over sacrum, Paraspinal muscle tightness remains on the left, this area is tender to touch. + SLR on L, + glute bridge provokes transverse low back pain worse on the L, no leg length discrepancy. Normal strength, tone, reflexes. Neurovasc intact. Consult reviewed Pain mgmt 03/2025: To address the patient's back pain associated with degenerative disc disease at L5-S1, I plan to continue with conservative management. This includes prescribing a Medrol pack as an oral corticosteroid to gauge response and potentially alleviate symptoms. A referral for chiropractic therapy in addition to ongoing physical therapy was made, aiming to optimize pain management and yazidism of function. Additionally, a functional capacity assessment will be used to evaluate his activity limitations comprehensively, which can further guide work-related duties and possible light-duty recommendations. The plan aims to improve pain levels and functional capacity progressively. Discussion Notes We reviewed the progress and current limitations in physical therapy, and I emphasized the importance of adhering to a regimen that avoids heavy lifting or spine loading activities to prevent further aggravation or deterioration of the condition. We determined that a letter in support of accommodations was necessary to limit physically demanding tasks that could exacerbate his condition. The plan includes continued physical therapy, judicious use of medications like meloxicam with attention to gastrointestinal precautions, and further evaluation with a functional capacity exam to officially support the requested accommodations. Follow-up care and adjustments to the management plan were advised based on ongoing assessments and response to therapy. Patient Instructions - Continue attending physical therapy se ssions. - Avoid activities that involve heavy li fting or bending forward. Note provided to him today. - Use meloxicam as directed, with food, and avoid combining with other NSAIDs. - Monitor for any changes in pain or new symptoms, and seek care if necessary. - Schedule a functional capacity exam as instructed. - Stay in communication through the [facility] ent portal for any necessary follow-up or concerns. Consent Patient was informed and verbally consented to the use of an ambient scribe for clinic note documentation during this visit. Total time spent caring for the patient today was 40 minutes. This includes time spent before the visit reviewing the chart, time spent during the visit, and time spent after the visit on documentation, reviewing laboratory results, diagnostic imaging, medications, performing a medically necessary evaluation, counseling on diagnoses, care coordination, ordering appropriate tests, ordering appropriate medications, review of tests performed by other providers, reporting test results with the patient, communication with other healthcare providers. [facility] Medical History activity status Low back pain No pertinent past medical history Surgical History No pertinent past surgical history Family History Brother Mental health disorder Paternal Grandfather Substance abuse Cancer Paternal Grandmother Substance abuse Cancer Maternal Grandmother Cancer Cardiovascular disease Mother Cardiovascular disease Social History Household Members: Other Household Members Other:: roomates Both parents involved: No Caregiver staying overnight: No Housing: Apartment Are you a primary care nurse rn to a significant other at home: No Do you presently have visiting nurse or other home services: No 75 years or older and lives alone: No Alcohol intake: current Alcohol intake frequency: a few times a month Patient Tobacco Use Status: Former Tobacco user Tobacco use type: Cigarette e-Cigarette/Vaping Use: Never Used Second Hand Smoke Exposure: No service: Yes Current occupational status: student Cognitive needs: No Hearing needs: No Vision needs: No Questionnaire PHQ-9 Over the last 2 weeks, how often have you been bothered by any of the following problems? 1. Little interest or pleasure in doing things: several days 2. Feeling down, depressed, or hopeless: not at all 3. Trouble falling or staying asleep, or sleeping too much: more than half the days 4. Feeling tired or having little energy: more than half the days 5. Poor appetite or overeating: not at all 6. Feeling bad about yourself - or that you are a failure or have let yourself or your family down: not at all 7. Trouble concentrating on things, such as reading the newspaper or watching television: several days 8. Moving or speaking so slowly that other people could have noticed. Or the opposite - being so fidgety or restless that you have been moving around a lot more than usual: not at all 9. Thoughts that you would be better off or of hurting yourself in some way: not at all Total score: 6 Depression Screening Interpretation: Positive Depression Screening Done: Yes 92851 - PHQ-9 Billing: Yes Source: Developed by Drs. Reginaldo Cuello, Marielos Parrish, Ned Selby and colleagues, with an educational karel from [employer]. Thrive Questionnaire Date Thrive assessed: 04/10/25 I am a: Patient What is your living situation today?: I have a steady place to live Within the past 12 months, did the food you bought not last and you didn't have the money to get more?: Never true Within the past 12 months, did you worry whether your food would run out before you got money to buy more?: Never true Do you have trouble paying for medicines?: No Do you have trouble getting transportation to medical appointments?: No Do you have trouble paying your heating and electricity bill?: No Do you have trouble taking care of your child, family member or friend?: No Do you have trouble with day-to-day activities such as bathing, preparing meals, shopping, managing finances, etc.?: No Are you currently unemployed and looking for a job?: No Are you interested in more education?: Yes Please select the resources that you would like help with: None Currently or been in a relationship where the following occur: No concerns reported THRIVE Score: 0 AUDIT C Alcohol Use Questionnaire (AUDIT-C) 1. How often do you have a drink containing alcohol?: 2-4 times a month 2. How many drinks containing alcohol do you have on a typical day when you are drinking?: 1 or 2 3. How often do you have six or more drinks on one occasion?: Less than monthly Total Score: 3 GALINA-7 AMB Questionnaire GALINA-7 Date GALINA - 7 assessed: 04/10/25 Feeling nervous, anxious, or on edge: 1 = Several days Not being able to stop or control worryin = Not at all Worrying too much about different things: 0 = Not at all Trouble relaxin = Several days Being so restless that it is hard to sit still: 1 = Several days Becoming easily annoyed or irritable: 0 = Not at all Feeling afraid as if something awful might happen: 0 = Not at all Total GALINA-7 score (0-4 normal; 5-9 mild; 10-14 moderate; 15-21 severe): 3 Source: Developed by Drs. Reginaldo Cuello, Marielos Parrish, Ned Selby and colleagues, with an educational karel from [employer]. GALINA-7 Assessment Billing GALINA-7 Assessment Tool: GALINA-7 Assessment 83843 Physical exam (Primary Care) Vital Signs: Last Vital Signs Temp 96.9 F 04/10/25 13:18 Pulse 61 04/10/25 13:18 Resp 12 04/10/25 13:18 BP 122/68 04/10/25 13:18 Pulse Ox 97 04/10/25 13:18 Oxygen Delivery Method Room Air 04/10/25 13:18 BMI result Body Mass Index 25.4 Tobacco/Smoking Status: Tobacco use Status Tobacco use date assessed 04/10/25 04/10/25 13:17 Patient Tobacco Use Status Former Tobacco user 04/10/25 13:17 Tobacco use type Cigarette 04/10/25 13:17 e-Cigarette/Vaping Use Never Used 04/10/25 13:17 PHQ-9: PHQ-9 Score PHQ-9: Total score 6 04/10/25 13:54 Depression Screening Interpretation: Positive Thrive Assessment: Date of Thrive Assessment Date Thrive assessed 04/10/25 04/10/25 13:17 Currently or been in a relationship where the following occur: No concerns reported Results Reviewed Results Reviewed: XR lumbar spine 4V min 11/07/24 Comparison: None Findings: No syndesmophytes or osseous ankylosis at this time. Question mild facet arthropathy of the lumbosacral junction with partial obscuration of the L5 pars. No definite lysis. Normal heights of 5 lumbar vertebrae without significant listhesis. Sacrum and SI joints are partly obscured. Phleboliths noted in the pelvis. Moderate bowel gas and mild-moderate stool burden in the [id number]. IMPRESSION: 1. Normal heights of 5 lumbar vertebrae without significant listhesis. 2. No osseous ankylosis or syndesmophytes at this time. XR sacroiliac joint min 3V 11/07/24 Comparison: None Findings Anatomic alignment of the imaged SI joints. No diastasis, erosions, or osseous ankylosis. Portions of the sacrum and SI joints are obscured with moderate bowel gas in the [id number]. Phleboliths are noted in the pelvis. IMPRESSION: No osseous ankylosis or erosions of the imaged SI joints. MR lumbar spine wo con 03/25/25 CLINICAL HISTORY: M54.50 - Low back pain for 2.5 years. Pain gets worse when bending forward or sitting for a long time. No specific injury. Physical therapy did not help MR lumbar spine without gadolinium Comparison: None Findings: No scoliosis or spondylolisthesis. No acute fracture or pathologic bone lesion. Cauda equina and conus medullaris within normal limits. There is disc space narrowing and disc desiccation at L5-S1 with very mild bilateral neural foraminal narrowing, otherwise significant degenerative change. No central canal stenoses. Paraspinous musculature intact. IMPRESSION: Disc space narrowing at L5-S1 as detailed. Coding Level of Care Code Est Pt Level 5 (57516) Complex EM visit Add On G2211 Diagnoses Chronic midline low back pain without sciatica M54.50; G89.29 Back pain laterality: midline Chronicity: chronic Sciatica presence: without sciatica Lumbosacral spondylosis M47.817 Muscle spasm of back M62.830 Vertebrogenic low back pain M54.51 activity status Y99.1 Additional Codes GALINA-7 Assessment Billing - GALINA-7 Assessment Tool: GALINA-7 Assessment 43439 ([id number]) PHQ-9 - 23487 - PHQ-9 Billing: Yes ([id number]) Assessment & Plan Assessment & Plan (1) Low back pain: Code(s): M54.50 - Low back pain, unspecified Category: Medical Qualifiers: Back pain laterality: midline Chronicity: chronic Sciatica presence: without sciatica Qualified Code(s): M54.50 - Low back pain, unspecified; G89.29 - Other chronic pain (2) Lumbosacral spondylosis: Code(s): M47.817 - Spondylosis without myelopathy or radiculopathy, lumbosacral region Category: Medical (3) Muscle spasm of back: Code(s): M62.830 - Muscle spasm of back Category: Medical (4) Vertebrogenic low back pain: Code(s): M54.51 - Vertebrogenic low back pain Category: Medical (5) 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 Orders: Orders Functional Capacity Exam Today Y99.1 - activity Medications: New meloxicam 15 mg PO DAILY 90 tabs 0RF Patient Instructions: [facility] [address] [facility],?[place]??[id number]?Open Until 5 P.M. Phone:?[phone]
[2025-04-10 13:18] VITALS: BP 122/68; PULSE 61; RESP 12; TEMP 36.1; O2SAT 97; BMI 25.4
--- OUTSIDE RECORDS SUMMARY | 2025-04-10 13:32 | XMS_ITS | Continuity of Care Document ---
Author Name [facility] Organization [facility] Care Team Providers Care Customer Success Advocate Name Role Phone [facility] Unavailable Unavailable Problems Combined list of problems from Department of Defense and Veterans Affairs facilities. It does not include entries that were removed or entered in error. Problem Status Onset Date Problem Type Date of Resolution Comments Source No Known Problems Active Condition [facility] Medications Combined list of outpatient medications from Department of Defense and Veterans Affairs facilities.Medications provided include 1) outpatient medications from the last 15 months, and 2) patient-reported medications. Medication Details Route Status Patient Instructions Prescription Expires Prescription Number Last Dispense Date Ordering Provider Order Date Order Qty Source Afrin 0.05% nasal spray 2 spray(s) , Nostril- Both, BID, # 15 mL, 0 total refill(s ), Acute, Pharmacy : [facility] Nostri l-Both (into the nose) Complet ed 09/07/2022 2 2021 15.0 0358C-N [facility] [place] [place] bacitracin zinc 500 units/g topical ointment 1 appl(s), Topical, BID, # 30 g, 0 total refill(s ), Acute, Pharmacy : [facility] Topica l (on the skin) Complet ed 10/04/2022 2 2021 30.0 0358C-N [facility] [place] [place] Mucinex D 60 mg-600 mg oral tablet, extended release 1 tab(s), Oral, BID, PRN cold symptoms , # 18 tab(s), 0 total refill(s ), Acute, Pharmacy : [facility] Oral (given by mouth) Complet ed 10/04/2022 2 2021 18.0 0358C-N [facility] [place] [place] penicillin V potassium 500 mg oral tablet 1 tab(s), Oral, BID, # 20 tab(s), 0 total refill(s ), Acute, 02/12/23 6:56:36 AM CDT, Pharmacy : [facility] Oral (given by mouth) Complet ed 02/12/2023 3 2022 20.0 0091C-N [facility] Allergies, Adverse Reactions, Alerts Combined list of allergies from Department of Defense and Veterans Affairs facilities. It does not include entries that were removed or entered in error. Substance Category Reaction Severity Reaction type Status Date Reported Comments Source No Known Allergies Drug allergy (disorder) active 04/18/2023 [facility] Immunizations Combined list of available immunizations from the Department of Defense and Veterans Affairs facilities. Immunization Series Date Given Administered By Site Reaction Lot Number CVX Code Drug Traffic Assistant Status Comments Source influenza virus vaccine, inactivated 2021 NOREEN Broussard desiree, left (delt oid) [id number] ID Autopilot (formerly Bislr) complet ed influenza virus vaccine, inactivat ed 09/06/22 Given 0358A-N [facility] [place] COVID Vaccine Moderna 2021 JESUS Broussard desiree, left (delt oid) [id number] Moderna US, Inc. complet ed COVID Vaccine Moderna 07/25/22 Given 0358A-N [facility] [place] varicella virus vaccine 2021 NOREEN Landaverde Arm [id number] Merck & Company Inc complet ed varicella virus vaccine 07/25/22 Given 0358A[facility] [place] hepatitis B adult vaccine 2021 ANN Broussard desiree, right (delt oid) [id number] 189 Storm[employer]isher [employer] complet ed hepatitis B adult vaccine 07/25/22 Given 0358A-N [facility] [place] poliovirus vaccine, inactivated 1 2021 KAIA OROZCO [id number] Moderna US, Inc. (MOD) complet ed polioviru s vaccine, inactivat ed DoD varicella virus vaccine 1 2021 KAIA OROZCO [id number] 21 Merck (MSD) complet ed varicella virus vaccine [facility] tuberculin skin test; purified protein derivative solution, intradermal 2021 KAIA OROZCO [id number] Sanofi Pasteur (PMC) complet ed tuberculi [...] vaccine, adsorbed 2021 KAIA OROZCO [id number] [employer]side Mobile (SKB) complet ed tetanus toxoid, reduced diphtheri a toxoid, and acellular pertussis vaccine, adsorbed DoD Adenovirus, type 4 and type 7, live, oral 1 2021 KAIA OROZCO [id number] 143 Unknown (UNK) complet ed Adenoviru s, type 4 and type 7, live, oral DoD Hepatitis B vaccine (recombinant) , CpG adjuvanted 2021 KAIA OROZCO [id number] 189 [place] [employer]. (DVX) complet ed Hepatitis B vaccine (recombin ant), CpG adjuvante d DoD SARS-COV-2 (COVID-19) vaccine, mRNA, spike protein, LNP, preservative free, 100 mcg or 50 mcg dose 1 2021 KAIA OROZCO [id number] Cards Offa Procura, Inc. (MOD) complet ed SARS-COV- 2 (COVID-19 [...] (11/14/22 1:33 PM) 11/14 N [facility] Molecular Infectiou s Disease SARS-CoV -2 PCR Negative 1 (1/17/23 1:33 PM) 11/14 N Interpretive Data: POSITIVE: SARS-CoV-2 detected NEGATIVE: SARS-CoV-2 not detected Negative results do not preclude SARS-CoV-2 infection and should not be used as the sole basis for patient management decisions. Negative results must be combined with clinical observations , patient history, and epidemiologi yvonne information. The Aptima SARS-CoV-2 assay performed on the [employer] system is a nucleic acid amplificatio n [...] Blood Pressure 116 mm[Hg] 09/04/20 22 [facility] 76 mm[Hg] 022 11:17:00 [facility] Respiratory Rate 16 br/min 09/04/2022 11:17:00 [facility] Peripheral Pulse Rate 84 bpm 09/04/2022 11:17:00 [facility] Mean Arterial Pressure, Calc 89 mm[Hg] 09/04/2022 11:17:00 [facility] [place] Blood Pressure Manual Automatic 09/04/2022 11:17:00 0358[facility] [place] BP Site Left arm 09/04/2022 11:17:00 [facility] [place] Temperature Oral 37.4 Lizy 09/04/2022 11:17:00 [facility] [place] Peripheral Pulse Rate 85 bpm 11/14/2022 15:55:00 [...] ADM Date DC Date Status Disposition Source [facility] Ekta diaz([facility]) OUTPATIENT [id number] POLLY RANKIN 06/22 Released w/o Limitations [facility] Crispin dominique([facility]) [facility]) OUTPATIENT [id number] JEALNI HERNANDEZ 06/22 Released w/o Limitations [facility] domin[facility]) [facility] Ek[place] diaz([facility] Recruit Medical Process) OUTPATIENT [id number] FIRST VISIT FOR IMMUNIZ MONICA SILVERIO 06/26 Released w/o Limitations [facility] Crispin dominique([facility] D Rec[employer] ) [facility] Ekta diaz([facility] Fourth BN BAS) OUTPATIENT [id number] Notes Entered by: ME ZITA LEON 04 Jul 2022 0855 ------- ------- ------- ------- -- G URI sx DESHAUN LEON 07/04 Sick at Home/Quarter s [facility] Crispin dominique([facility] D Fourth BN BAS) Procedures Combined list of: 1) Procedures from Department of Veterans Affairs facilities going back up to thelast 18 months, not all VA non-surgical procedures are included; 2) All procedures from the Department of Defense facilities. Procedure Procedure Type Code Date Perfomer Comments Sourc e No data available for this section Ambulato ry Pharmacy UNLISTED VACCINE/TOXOID 2021 [facility] OPHTHALMOLOGICAL SERVICES: MEDICAL EXAMINATION AND EVALUATION WITH INITIATION OF DIAGNOSTIC AND TREATMENT PROGRAM; INTERMEDIATE, NEW PATIENT 2021 [facility] PATIENT EDUCATION, NOT OTHERWISE CLASSIFIED, NON-PHYSICIAN PROVIDER, GROUP, PER SESSION 2021 [facility] Threshold Audiogram (Pure Tone) Automated Threshold Audiogram (Pure Tone) Automated [id number] [place] [facility] Patient education, not otherwise cla ified, non-physician provider, group, per se ion [place] [facility] Ophthalmological New Patient Start Intermediate Level Care Ophthalmological New Patient Start Intermediate Level Care 71966 MAURI JAMESON [facility] Vaccines Viral Polio, Inactivated (Salk) Vaccines Viral Polio, Inactivated (Salk) 46344 KAIA OROZCO IPV; Series #: 1; 0.5 mL; IM; Right Arm; Mfg: remocean Inc.; Lot: [id number]; VIS given (Heather: 06/03/2021; 08/12/2021 - Multiple). [facility] Vaccines Viral Varicella (Active) Vaccines Viral Varicella (Active) 10651 KAIA OROZCO Varicella; Series #: 1; 0.5 mL; SC; Right Arm; Mfg: Merck; Lot: [id number]; VIS given (Heather: 06/03/2021). [facility] Skin Test Anergy Tuberculin Intradermal Skin Test Anergy Tuberculin Intradermal 77396 KAIA OROZCO IPPD; Series #: 1; 0.1 mL; ID; Left Arm; Mfg: Sanofi Pasteur; Lot: [id number]; VIS given. [facility] Immunization Administration One Vaccine Immunization Administration One Vaccine 53102 [facility] Immunization Administration Each Additional Vaccine Immunization Administration Each Additional Vaccine 10136 [facility] Immunization Admin By Intranasal / Oral Route One Vaccine Immunization Admin By Intranasal / Oral Route One Vaccine 04308 [facility] S[facility] Supervised Injection Intramuscular Supervised Injection Intramuscular 30918 KAIA OROZCO [facility] Venipuncture Venipuncture 01911 [facility]ERRY [facility] Meningococcal Polysacch Diphtheria Toxoid Conjugate Vaccine Meningococcal Polysacch Diphtheria Toxoid Conjugate Vaccine 22572 OROZCOCARITO RabagoKAIA S Meningococcal MCV4P (Menactra); Series #: 1; 0.5 mL; IM; Right Arm; Mfg: Sanofi Pasteur; Lot: [id number]; VIS given (Heather: 06/03/2021). [facility] Tdap Vaccine Tdap Vaccine 05583 KAIA OROZCO Tdap; Series #: 1; 0.5 mL; IM; Left Arm; Mfg: SmithPandoramaine; Lot: [id number]; VIS given (Heather: 06/03/2021). [facility] Vaccines Vaccines 97834 OROZCOPERRY DELUNAOscar Henry Adenovirus Type 4 and 7; Series #: 1; 2 tablets; PO; Oral; Mfg: Unknown; Lot: [id number]; VIS given (Heather: 11/05/2019). DoD Social History Combined list of available smoking, tobacco, and other social history from Department of Defense and Veterans Affairs facilities. Social History Type Response Date Comment [facility] e Sexual Orientation Ambula tory Pharmacy Gender identity Ambulator y Pharmacy Sex Representation Male (finding) Un known Organization This section is an empty soc ial history section. [facility] Assessment and Plan Combined list of [...] disqualifying conditions. Appropriate for follow up with [place] medical providers. Documentation completed on the DD Form 2807-1 and DD Form 2808. ?Completed documentation scanned into Angie?and the originals were returned to the patient. ? Kofi Sutton PA-C [facility]? ? ? Extracted from:Title: Covid-19, Strep A Testing Nurse Protocol Author: RAINER GRENEFIELD LPN Date: 11/14/22 Pharyngitis Patient presents to clinic today with pharyngitis along with?some of the following?symptoms: red swollen tonsils, malaise, pain with swallowing. Patient will be tested for strep today.?Patient instructed he will receive further instructions tomorrow?if strep is positive, v/u. Screening status Tested for Covid-19 and Strep A Upper respiratory infection Patient presented to [facility] for COVID testing. Congestion present. [...] All questions and concerns addressed. Extracted from:Title: G/5 Suture Removal Office Clinic Note Author: Yang [...] refill(s), Acute, 2 spray(s) Nostril-Both BID, Pharmacy: [facility] [Last filled 09/04/22] bacitracin topical(bacitracin zinc 500 units/g topical ointment), 1 appl(s), Topical, BID, # 30 g, 0 total refill(s), Acute, 1 appl(s) Topical BID, Pharmacy: [facility] [Last filled 09/04/22] pseudoephedrine-guaifenesin(Mu cinex D 60 mg-600 mg oral tablet, extended release), 1 tab(s), Oral, BID, PRN cold symptoms, # 18 tab(s), 0 total refill(s), Acute, 1 tab(s) Oral BID,PRN:as needed for cold symptoms, Pharmacy: [facility] [Last filled 09/04/22] Extracted from:Title: [...] Adarsh Houston PA-C ? 09/04/22 06:29:04 ? 04/10/[address] [place] [address] Assessment and Plan Extracted from:Title : RES SEP FROM AD Author: KOFI SUTTON PA-C Date: 02/12/23 1.?EXAM, OCCUPATIONAL, SEPARATION Patient is medically fit to separate from service. ?Patient has no apparent disqualifying conditions. Appropriate for follow up with [place] medical providers. Documentation completed on the DD Form 2807-1 and DD Form 2808. ?Completed documentation scanned into Angie?and the originals were returned to the patient. ? Kofi Sutton PA-C [address]? ? ? Extracted from:Title: Covid-19, Strep [...] respiratory infection Patient presented to [facility] for COVID testing. Congestion present. [...] refill(s), Acute, 2 spray(s) Nostril-Both BID, Pharmacy: [facility] [Last filled 09/04/22] bacitracin topical(bacitracin zinc 500 units/g topical ointment), 1 appl(s), Topical, BID, # 30 g, 0 total refill(s), Acute, 1 appl(s) Topical BID, Pharmacy: [facility] [Last filled 09/04/22] pseudoephedrine-guaifenesin(Mu cinex D 60 mg-600 mg oral tablet, extended release), 1 tab(s), Oral, BID, PRN cold symptoms, # 18 tab(s), 0 total refill(s), Acute, 1 tab(s) Oral BID,PRN:as needed for cold symptoms, Pharmacy: [facility] [Last filled 09/04/22] Extracted from:Title: [...] completed and signed on Date/Time:?09/04/22 06:29:01 ? Adarhs Houston PA-C ? 09/04/22 06:29:04 ? 04/10/[address] [place] [address] Functional Status Combined list of recent functional and cognitive assessments recorded at Department of Defense and Veterans Affairs (VA).VA Functional Wilkin Measurement (FIM) Scale: 1 = Total Assistance (Subject = 0% +), 2 = Maximal Assistance (Subject = 25% +), 3 = Moderate Assistance (Subject = 50% +), 4 = Minimal Assistance (Subject = 75% +), 5 = Supervision, 6 = Modified Wilkin (Device), 7 = Complete Wilkin (Timely, Safely). Assessment Date/Time Source Assessment Type Assessment Skill Assessment Score Assessment Details No data available for this section
== END 2025-04-10 14:16 | disposition home or self-care (01) ==
LOC: HO.HMCFM 13:13
PROVIDERS: PCP Nurse Practitioner Family; Visit Provider Nurse Practitioner Family
DX: M54.50 Low back pain, unspecified (principal); G89.29 Other chronic pain; M47.817 Spondylosis without myelopathy or radiculopathy, lumbosacral region; M62.830 Muscle spasm of back; M54.51 Vertebrogenic low back pain; Y99.1 Military activity

== ENCOUNTER → 2025-04-10 13:12 | Outpatient (BNVA) | payer OTHER, SELFPAY | PROVIDERS: PCP Nurse Practitioner Family; Visit Provider Nurse Practitioner Family | DX: M54.50 Low back pain, unspecified (principal); G89.29 Other chronic pain; M47.817 Spondylosis without myelopathy or radiculopathy, lumbosacral region; M54.51 Vertebrogenic low back pain; M62.830 Muscle spasm of back | CPT/HCPCS: 96127; 99212 ==

== ENCOUNTER 2025-05-22 10:56 | Outpatient (AMB) | payer OTHER, SELFPAY ==
--- NOTE | 2025-05-22 07:45 | A.OFFPC_ITS ---
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 Has never seen psych/counselor or taken meds. Other notes: he had capacity exam done by and he is on restricted duty. Plan: Contracts for safety Refer to for counseling and psychiatry for eval and tx; appropriate dx. Advised if no contact in 2 weeks to send me a portal message Total time spent caring for the patient today was 15 minutes. This includes time spent before the visit reviewing the chart, time spent during the visit, and time spent after the visit on documentation, reviewing laboratory results, diagnostic imaging, medications, performing a medically necessary evaluation, counseling on diagnoses, care coordination, ordering appropriate tests, ordering appropriate medications, review of tests performed by other providers, reporting test results with the patient, communication with other healthcare providers. [facility] Medical History activity status Low back pain No pertinent past medical history Surgical History No pertinent past surgical history Family History Brother Mental health disorder Paternal Grandfather Substance abuse Cancer Paternal Grandmother Substance abuse Cancer Maternal Grandmother Cancer Cardiovascular disease Mother Cardiovascular disease Social History Household Members: Other Household Members Other:: roomates Both parents involved: No Caregiver staying overnight: No Housing: Apartment Are you a primary life care planner to a significant other at home: No Do you presently have visiting nurse or other home services: No 75 years or older and lives alone: No Alcohol intake: current Alcohol intake frequency: a few times a month Patient Tobacco Use Status: Former Tobacco user Tobacco use type: Cigarette e-Cigarette/Vaping Use: Never Used Second Hand Smoke Exposure: No service: Yes Current occupational status: student Cognitive needs: No Hearing needs: No Vision needs: No Questionnaire Thrive Questionnaire Date Thrive assessed: 04/10/25 I am a: Patient What is your living situation today?: I have a steady place to live Within the past 12 months, did the food you bought not last and you didn't have the money to get more?: Never true Within the past 12 months, did you worry whether your food would run out before you got money to buy more?: Never true Do you have trouble paying for medicines?: No Do you have trouble getting transportation to medical appointments?: No Do you have trouble paying your heating and electricity bill?: No Do you have trouble taking care of your child, family member or friend?: No Do you have trouble with day-to-day activities such as bathing, preparing meals, shopping, managing finances, etc.?: No Are you currently unemployed and looking for a job?: No Are you interested in more education?: Yes Please select the resources that you would like help with: None Currently or been in a relationship where the following occur: No concerns reported THRIVE Score: 0 GALINA-7 AMB Questionnaire GALINA-7 Date GALINA - 7 assessed: 04/10/25 Source: Developed by Drs. Reginaldo Cuello, Marielos Parrish, Ned Selby and colleagues, with an educational karel from [employer]. Physical exam (Primary Care) Tobacco/Smoking Status: Tobacco use Status Tobacco use date assessed 04/10/25 05/22/25 07:45 Patient Tobacco Use Status Former Tobacco user 05/22/25 07:45 Tobacco use type Cigarette 05/22/25 07:45 e-Cigarette/Vaping Use Never Used 05/22/25 07:45 Thrive Assessment: Date of Thrive Assessment Date Thrive assessed 04/10/25 05/22/25 07:45 Currently or been in a relationship where the following occur: No concerns reported Coding Level of Care Code Tele Est Pt Level 2 (57234) Complex EM visit Add On G2211 Diagnoses GALINA (generalized anxiety disorder) F41.1 Family history of OCD (obsessive compulsive disorder) Z81.8 Chronic midline low back pain without sciatica M54.50; G89.29 Chronicity: chronic Back pain laterality: midline Sciatica presence: without sciatica activity status Y99.1 Assessment & Plan Assessment & Plan (1) GALINA (generalized anxiety disorder): Code(s): F41.1 - Generalized anxiety disorder Category: Medical (2) Family history of OCD (obsessive compulsive disorder): Code(s): Z81.8 - Family history of other mental and behavioral disorders Category: Medical (3) Low back pain: Code(s): M54.50 - Low back pain, unspecified Category: Medical Qualifiers: Chronicity: chronic Back pain laterality: midline Sciatica presence: without sciatica Qualified Code(s): M54.50 - Low back pain, unspecified; G89.29 - Other chronic pain (4) 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 Orders: Referrals Nurse Navigator Referral F41.1 - Generalized anxiety disorder
--- OUTSIDE RECORDS SUMMARY | 2025-05-22 11:06 | XMS_ITS | Clinical Summary ---
Author Organization [facility] Address [address] [facility] [address] [place] [phone] Phone Care Team Providers Care Loan Secretary Name Role Phone Unavailable Primary Care Provider Unavailabl e Allergies No known active allergies Medications ascorbic acid, vitamin C, (VITAMIN C) 500 mg Chew Take 500 mg by mouth daily as needed. Active Active Problems Patient Care Coordination No te Formatting of this note migh t be different from the original. Transfer from 11/25/2024 Problem Noted Date Diagnosed Date Chronic bilateral low back pain without sciatica 08/06/2024 Assessment & Plan (08/06/2024 10:58 PM EDT): History and exam is consistent with muscular etiology. No history or exam findings to suggest vertebral or spinal cord pathology. Course of PT is recommended. Chronic/relapsing nature is likely due in part to his active lifestyle and work demands. Resolved Problems Problem Noted Date Diagnosed Date Resolved Date Influenza-like illness 07/30/201707/30 Assessment & Plan (07/30/2017 7:04 PM EDT): With strep and flu tests negative, will plan on screening for lyme disease within the next few days to week. Parent and Eagle were informed of increased risk of a false negative lyme screen early in the course of illness. Suspicion is relative low due to lack of known tick bite (viral illness is still more likely cause of his symptoms). Allergic rhinitis 11/04/2015 07/02/2018 Dysfunction of eustachian tube 11/04/2015 07/30/2017 Impacted cerumen 09/22/2015 03/01/2023 Overview (10/05/2015): Impacted cerumen Immunizations Immunization Administration Dates Next Due Adenovirus, type 4 and type 7 06/26/2022 COVID-19 (Pre-08/20) Moderna Vaccine, mRNA, PF 07/25/2022,06/26/2022,11/27/2021,03/10,02/10/2021 DTaP 07/30/2007, 4,01/08/2003,11/11,2002 HPV9 11/04/2019,09/24/2018,07/02/2018 Hepatitis A, ped/adol, 2 dose 09/14/2020, 020 Hepatitis B CpG 07/25/2022,06/26/2022 Hepatitis B, unspecified formulation 01/08/2003, 2002,2002 Hib, unspecified formulation 10/16/2003, 01/08/2003,2002,09/02 IPV 06/26/2022, 7,07/15/2003,11/11,2002 Influenza Quadrivalent Prese rvative Free IM 09/06/2022,09/14/2020 Influenza Quadrivalent w/ Pr eservative IM 09/24/2018 Influenza Trivalent MDCK w/Preservative IM 08/04/2024 Influenza, Unspecified Formulation 09/01,11/06/2011,11/02/2010,08/19,07/30/2007,10/16/2003 MMR 07/30/2007,10/16/2003 Meningococcal MCV4P 06/26/2022,11/04/2019,2013 PPD Test 06/26/2022 Pneumococcal conjugate, PCV 7 07/15/2003 ,01/08/2003,2002,09/02 Tdap 06/26/2022,03/05/2014 Varicella 07/25/2022, 2,07/30/2007,07/15 Family History Medical History Relation Comments Eczema Brother 1 OCD Spectrum disorder Brother 1 Other Brother 1 toshia schlatter s disease ADD / ADHD Brother 2 No Known Problems Father Kidney cancer Maternal Aunt 1 Other Maternal Aunt 1 parathyroid tumo r Thyroid disease Maternal Aunt 1 Nephrolithiasis Maternal Aunt 2 Hyperlipidemia Maternal Grandfather Hypertension Maternal Grandfather Lung cancer Maternal Grandfather Diabetes Maternal Grandmother Heart attack Maternal Grandmother Hypertension Maternal Grandmother Kidney failure Maternal Grandmother Nephrolithiasis Maternal Grandmother Thyroid disease Maternal Grandmother Nephrolithiasis Mother Other Mother parathyroid tumo r Breast cancer Paternal Aunt 1 Breast cancer Paternal Aunt 2 Colon cancer Paternal Grandfather Heart attack Paternal Grandmother Headaches Sister recurrent Scoliosis Sister Seizures Unspecified Relation Status Comments Brother 1 Alive Brother 2 Alive Father Alive Maternal Aunt 1 Alive Maternal Aunt 2 Alive Maternal Grandfather Maternal Grandmother Mother Alive Paternal Aunt 1 Paternal Aunt 2 Paternal Grandfather Paternal Grandmother Sister Alive Unspecified Alive Social History Tobacco Use Types Packs/Day Years Used Date Smoking Tobacco: Never Smokeless Tobacco: Never Tobacco Cessation:Counseling Given: Yes Alcohol Use Standard Drinks/Week Comments Yes 0 (1 standard drink = 0.6 oz pur e alcohol) 0-1 drinks per week at most Education Answer Date Recorded Are you interested in more education? Not on vaughn e 02/23/2023 Are you concerned about learning? Not on file 02/23/2023 No 02/23/2023 No 02/23/2023 Digital Access Answer Date Recorded No 03/21/2023 No 03/21/2023 Reliable internet access at home? Not on file 03/21/2023 Device with a working camera? Not on file Sex and Gender Information Value Date Recorded Sex Assigned at Male 04/11/2022 6:11 PM EDT Legal Sex Male 10:41 AM EST Gender Identity Male 04/11/2022 6:11 PM EDT Sexual Orientation Straight 04/11/2022 6: 11 PM EDT Last Filed Vital Signs Vital Sign Reading Time Taken Comments Blood Pressure 120/78 08/04/2024 2:11 PM EDT Pulse 76 05/03/2023 10:44 AM EDT Temperature 36.2 C (97.2 F) 08/04/2024 2:11 PM EDT Respiratory Rate 24 05/03/2023 10:44 AM EDT Oxygen Saturation - - Inhaled Oxygen Concentration - - Weight 73.7 kg (162 lb 8 oz) 08/04/2024 2:11 PM EDT Height 167.6 cm (5' 6 ) 06/22/2023 10:05 AM EDT Body Mass Index 26.23 06/22/2023 10:05 AM EDT Plan of Treatment Health Maintenance Due Date Last Done Comments SMOKING Hx and SMOKELESS TOBACCO SCREENING 2015 MENINGOCOCCAL VACCINES (B) (1 of 2 - Standard) 2018 HEPATITIS C SCREENING 2020 HIV ONE-TIME SCREENING (18-65 YEARS) 2020 DEPRESSION SCREENING 06/22/2024 06/22/2023, 02/29/20 21 COVID-19 VACCINE ( season) 2024 07/25/2022, 06/26/2022, 11/27/2021, Additional history exists Adult Td,Tdap Booster 06/26/2032 06/26/2022, 014 PNEUMOCOCCAL VACCINES (0-49 years) Aged Out 07/15/2003, 01/08/2003, 2002, Additional history exists No longer eligible based on patient's age to complete this topic HIB VACCINES Completed 10/16/2003, 12/27, 2002, Additional history exists HPV VACCINES Completed 11/04/2019, 08/30, 07/02/2018 HEPATITIS A VACCINES Completed 09/14/2020, 11/04/19 20 MENINGOCOCCAL VACCINES (ACWY) Completed 06/26/2022, 11/04/2019, 03/05/2014 Medical Devices Not on file Insurance [facility] Additional Source Comments The information contained in this document represents components of the legal health record. It is not the complete legal health record.[facility]
--- OUTSIDE RECORDS SUMMARY | 2025-05-22 11:06 | XMS_ITS | Clinical Summary ---
Author Organization [facility] Address [address] [place] [address] Care Team Providers Care Lead Application Architect Name Role Phone Chandler Raphael MD Primary Care Provider [phone] Allergies No known active allergies Medications predniSONE [...] 82 11/29/2023 1:35 PM EST Temperature 37.2 C (99 F) 11/29/2023 1:35 PM EST Respiratory Rate 18 [...] 06/26/2022, 11/27/2021, Additional history exists Influenza Vaccine (#1) 2025 2, 09/14/2020, 09/24/2018, Additional history exists DTaP,Tdap,and Td Vaccines (8 - Td or Tdap) 06/26/2032 06/26/2022, 03/05/2014, 07/30/2007, Additional history exists Pneumococcal Vaccines 0-49 yrs (includes High Risk) Aged Out 07/15/2003, 01/08/2003, 2002, Additional history exists No longer eligible based on patient's age to complete this topic HIB Vaccines Completed 10/16/2003, 12/27, 2002, Additional history exists Hepatitis A Vaccine Completed 09/14/2020, 0 Insurance [facility] Care Teams Lead Application Architect Relationship Specialty Start Date End Date Chandler Raphael MD [address] [place], [place] PCP - General Pediatrics 05/01/23
== END 2025-05-22 16:59 | disposition home or self-care (01) ==
LOC: HO.HMCFM 10:56
PROVIDERS: PCP Nurse Practitioner Family; Visit Provider Nurse Practitioner Family
DX: M54.50 Low back pain, unspecified (principal); F41.1 Generalized anxiety disorder; Z81.8 Family history of other mental and behavioral disorders; G89.29 Other chronic pain; Y99.1 Military activity

== ENCOUNTER 2025-10-19 11:33 | Outpatient (AMB) | payer OTHER, SELFPAY ==
--- NOTE | 2025-10-19 11:34 | A.OFFPC_ITS ---
Vital Signs 10/19/25 11:37 Height 5 ft 7 in Weight 163 lb BMI 25.5 BP 101/66 Blood Pressure Location Lt brachial Position Sitting Respiration 12 Pulse 76 Pulse Source Pulse Oximeter Temp 97.6 F Temp Source Oral Pulse Oximetry (%) 99 Oxygen Delivery Method Room Air Intake Visit Reasons: back problems Intake Note: Patient job is requesting a update on his vback problems and patient also needs refill on pain meds. 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: No Allergies No Known Allergies Allergy (Verified 10/19/25 11:42) Medication List - Last Reconciled 10/19/25 by JOHN Sanderson- ibuprofen 800 mg PO Q8H PRN lidocaine 5% 1 patch topical DAILY 30 days meloxicam 15 mg PO DAILY multivitamin 1 tab PO DAILY Tobacco use date assessed: 10/19/25 Dental Screening Dental Screen Date: 10/19/25 Did you have a dental visit in the last 12 months?: Yes Did you have a dental problem in the last 6 months where you did not have access to dental care?: No Was dental information given to patient?: Patient has dentist HPI HPI Comments History of Present Illness Details 25-year-old male with degenerative disc disease at L5-S1 Social: [place], lives in [facility] 2024 Tdap UTD - Specialists PT Pain Mgmt History of Present Illness ongoing lower back pain. Oct 2024: Presenting with lower back pain. 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 The patient describes the pain as being located on both sides but more pronounced on the left side, without radiating outwards. It is constant throughout the day and exacerbated by physical activities such as lifting weights, bending over, and specific sitting positions, e.g., in a car. No relief has been found with the use of Tylenol, ibuprofen, heating pads, or topical analgesics like Salonpas. 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 The patient has not reported any traumatic injury. No other treatments have been pursued outside self-care measures, and no imaging studies have previously been performed. Pain does not radiate to the legs, and there are no alterations in urination or abdominal pain. No red flag signs assoc w/ back pain. March 2025 - Previous MRI showed a small disc bulge and arthritis. See results below - Experienced increased pain and insomni a after starting steroids, which were subsequently ceased. - Regular flare-ups occur with physical activities like bending, running with heavy gear, and during shooting range activities. - Physical therapy ongoing with targeted exercises and caution advised against spine loading. - Using meloxicam sparingly with + relie f - Concern about prolonged deterioration leading to potential surgical i ntervention if untreated. - Active w/ C pain mgmt - see details of note below - Still in PT; will start chiro next wee k - Needs a letter for me for limited duty for ; was referred to [facility] by Pain Mgmt but told they no longer do these exams. Today: The patient is a 25 year old male presenting with follow-up for chronic low back pain and to request a status update letter for the . 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 - An MRI showed a small disc bulge, arth ritis, and degenerative disc disease at L5-S1. - He has completed physical therapy, see n pain management, and undergone a functional capacity exam. - He is currently on a limited duty stat us with the , which is set to end in November. - His former physical therapist recommen ded extending his limited duty status to continue strengthening before returning to full duty. - Since his therapist left, he has been compliant with a home exercise routine. - He reports intermittent pain and had a flare-up last week, which is typically triggered by impact activities like jumping. - He uses meloxicam occasionally with so me benefit but found the lidocaine patch to be ineffective. - He considered palliative care nurse but mi ssed the appointment due to scheduling conflicts. - The patient does not want surgery, and cortisone injections have been discussed as a future option if physical therapy is insufficient. Mental Health History: - The patient previously sought a psychi atric evaluation for concerns of anxie ty, ADHD, or OCD. - He reports that a psychiatrist diagnos ed him with autism after a 10-minute consultation, a diagnosis he finds questionable. - Subsequently, a therapist conducted te sting over four sessions and strongly believed he has ADHD. - The psychiatrist prescribed anxiety me dications, which caused adverse effects, leading the patient to discontinue them. - A full psychological evaluation was re commended but is not covered by his insurance and is cost-prohibitive as an adult. Review of Systems - Musculoskeletal: Reports chronic, inte rmittent low back pain, which worsens with impact activities like jumping. He had a flare-up last week and notes lifting has been manageable. He feels sensation in the low back with flexion but denies a sharp pull or twinge with straight leg raises. - Psychiatric: Reports feeling anxious a t times about his back injury. - Neurological: Reports a history of consuelo huy. Physical Exam General: Well developed, well nourished, in no acute distress. Appears stated age. Head: Normocephalic, atraumatic. Eyes: Pupils are equal, round and reactive to light and accommodation. Conjunctivae are clear. Vision grossly normal. Neck: FROM, supple Lungs:Speaking in full sentences Musculoskeletal: Joints are nontender, without swelling, redness, or effusions. R SLR causes transverse low back pain, pain with palpation over lumbar sacral spine, mild paraspinal tenderness w/ palpation right lumbar region, glute bridge better tolerated in the past but still causes pain across transverse low back. Pulses: Peripheral pulses are equal and palpable bilaterally. Extremities: No clubbing, cyanosis nor edema is noted. Neuro: NEVILLE x 4, normal strength, tone and reflexes. Psych: Mood and affect appropriate. Consult reviewed Pain mgmt 03/2025: To address the patient's back pain associated with degenerative disc disease at L5-S1, I plan to continue with conservative management. This includes prescribing a Medrol pack as an oral corticosteroid to gauge response and potentially alleviate symptoms. A referral for chiropractic therapy in addition to ongoing physical therapy was made, aiming to optimize pain management and orthodox of function. Additionally, a functional capacity assessment will be used to evaluate his activity limitations comprehensively, which can further guide work-related duties and possible light-duty recommendations. The plan aims to improve pain levels and functional capacity progressively. Medical Decision Making The patient is a 25-year-old male with chronic low back pain secondary to degenerative disc disease at L5-S1, confirmed on a prior MRI. He presented for a follow-up and to obtain a letter for the to extend his limited duty status, which is medically appropriate given his recent pain flare-up and persistent symptoms with impact activities that are common in his line of work. The patient has been diligent with conservative management, including physical therapy, and now continues with a home exercise program. Despite these efforts, he remains at risk for exacerbating his condition if he returns to full, unrestricted duty, especially with high-impact physical tests scheduled soon. Therefore, the plan is to provide the requested letter and recommend extending his limited duty until November. It is also recommended that he undergo another functional capacity exam through the before his status changes to ensure his restrictions are still appropriate. A follow-up with pain management is advised to re-evaluate his condition and consider other interventions, such as corticosteroid injections, if his pain is not adequately controlled. A refill of meloxicam will be provided for management of occasional flare-ups. Plan 1. Chronic Low Back Pain - A letter will be provided to the [employer] [employer] recommending an extension of the patient's limited duty status until November, citing a recent flare-up and the need for continued strengthening. Provided at time of visit. - Recommended a repeat functional capaci ty exam in November, to be completed through the , to re-evaluate his physical restrictions before a potential return to full duty. - Advised a follow-up visit with the [facility] in November to discuss other potential interventions, such as injections, if pain persists. - A refill for meloxicam was sent to the pharmacy for occasional use during pain flare-ups. - The patient will continue his home exe rcise program, including core and hamstring strengthening. 2. Mental Health-Related Concerns - The patient's history of conflicting d iagnoses of ADHD and autism was noted. He disputes the autism diagnosis. No further action or referral was planned at this visit, as a full neuropsychological evaluation is cost-prohibitive for the patient. Patient Instructions - Continue your home exercise program fo r your back, including exercises that strengthen your core muscles. - A prescription for meloxicam has been refilled. Take it as needed when you experience a flare-up of your back pain. - A letter has been prepared for the [facility] to support extending your limited duty status until November. This will give you more time to strengthen your back before returning to full duty. - It is recommended that you get another functional capacity exam in November, through the , to re-assess your physical abilities and limitations. - Consider meeting with the Pain Managem ent clinic again in November to see if there are other treatments, like injections, that could help. - For future appointments, please send a message directly to me through the patient portal instead of using the request appointment button, as that will ensure a faster response. Consent Patient was informed and verbally consented to the use of an ambient scribe for clinic note documentation during this visit. Total time spent caring for the patient today was 30 minutes. This includes time spent before the visit reviewing the chart, time spent during the visit, and time spent after the visit on documentation, reviewing laboratory results, diagnostic imaging, medications, performing a medically necessary evaluation, counseling on diagnoses, care coordination, ordering appropriate tests, ordering appropriate medications, review of tests performed by other providers, reporting test results with the patient, communication with other healthcare providers. [facility] Medical History activity status Low back pain No pertinent past medical history Surgical History No pertinent past surgical history Family History Brother Mental health disorder Paternal Grandfather Substance abuse Cancer Paternal Grandmother Substance abuse Cancer Maternal Grandmother Cancer Cardiovascular disease Mother Cardiovascular disease Social History Household Members: Other Household Members Other:: roomates Both parents involved: No Caregiver staying overnight: No Housing: Apartment Are you a primary transitional care manager to a significant other at home: No Do you presently have visiting nurse or other home services: No 75 years or older and lives alone: No Alcohol intake: current Alcohol intake frequency: a few times a month Patient Tobacco Use Status: Former Tobacco user Tobacco use type: Cigarette e-Cigarette/Vaping Use: Never Used Second Hand Smoke Exposure: No service: Yes Current occupational status: student Cognitive needs: No Hearing needs: No Vision needs: No Questionnaire Thrive Questionnaire Date Thrive assessed: 04/10/25 I am a: Patient What is your living situation today?: I have a steady place to live Within the past 12 months, did the food you bought not last and you didn't have the money to get more?: Never true Within the past 12 months, did you worry whether your food would run out before you got money to buy more?: Never true Do you have trouble paying for medicines?: No Do you have trouble getting transportation to medical appointments?: No Do you have trouble paying your heating and electricity bill?: No Do you have trouble taking care of your child, family member or friend?: No Do you have trouble with day-to-day activities such as bathing, preparing meals, shopping, managing finances, etc.?: No Are you currently unemployed and looking for a job?: No Are you interested in more education?: Yes Currently or been in a relationship where the following occur: No concerns reported THRIVE Score: 0 GALINA-7 AMB Questionnaire GALINA-7 Date GALINA - 7 assessed: 04/10/25 Source: Developed by Drs. Reginaldo Cuello, Marielos Parrish, Ned Selby and colleagues, with an educational karel from [employer]. Physical exam (Primary Care) Vital Signs: Last Vital Signs Temp 97.6 F 10/19/25 11:37 Pulse 76 10/19/25 11:37 Resp 12 10/19/25 11:37 BP 101/66 10/19/25 11:37 Pulse Ox 99 10/19/25 11:37 Oxygen Delivery Method Room Air 10/19/25 11:37 BMI result Body Mass Index 25.5 Tobacco/Smoking Status: Tobacco use Status Tobacco use date assessed 10/19/25 10/19/25 11:37 Patient Tobacco Use Status Former Tobacco user 10/19/25 11:37 Tobacco use type Cigarette 10/19/25 11:37 e-Cigarette/Vaping Use Never Used 10/19/25 11:37 Thrive Assessment: Date of Thrive Assessment Date Thrive assessed 04/10/25 10/19/25 11:37 Currently or been in a relationship where the following occur: No concerns reported Results Reviewed Results Reviewed: Eagle Handley Nicola 2000 To Whom It may Concern, I am the primary care for the above named patient. He is currently on limited duty due to degenerative disc disease at L5-S1, which is effective through November 2025. His most recent flare was about 1 week ago, causing worsening of his symptoms. I do recommend he undergo a repeat functional capacity exam in November 2025 to see if he has continued need for limited duty VS abilty to return to full capacity. Sincerely, Tila Lofton, JOHN- Coding Level of Care Code Est Pt Level 4 (34100) Add On Problem Visit Only Diagnoses Osteoarthritis of spine with radiculopathy, lumbosacral region M47.27 Spinal osteoarthritis complication: with radiculopathy activity status Y99.1 Muscle spasm of back M62.830 Chronic midline low back pain without sciatica M54.50; G89.29 Chronicity: chronic Back pain laterality: midline Sciatica presence: without sciatica Vertebrogenic low back pain M54.51 Assessment & Plan Assessment & Plan (1) Lumbosacral spondylosis: Code(s): M47.817 - Spondylosis without myelopathy or radiculopathy, lumbosacral region Category: Medical Qualifiers: Spinal osteoarthritis complication: with radiculopathy Qualified Code(s): M47.27 - Other spondylosis with radiculopathy, lumbosacral region (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 Medications: Refilled meloxicam 15 mg PO DAILY 90 tabs 0RF Discontinued lidocaine 5% Discontinued Reason: Patient Completed Course 1 patch topical DAILY 30 days 30 ea 0RF pain G89.29 - Other chronic pain, M47.817 - Spondylosis without myelopathy or radiculopathy, lumbosacral region, M54.50 - Low back pain, unspecified, M54.51 - Vertebrogenic low back pain
[2025-10-19 11:37] VITALS: BP 101/66; PULSE 76; RESP 12; TEMP 36.4; O2SAT 99; BMI 25.5
--- OUTSIDE RECORDS SUMMARY | 2025-10-19 14:46 | XMS_ITS | Clinical Summary ---
Author Organization [facility] Address [email or web address] ([place], [place]) [address] [place] [phone] Phone Care Team Providers Care Used [employer] Name Role Phone Unavailable Primary Care Provider [...] 01/08/2003, 2002,2002 Hib, unspecified formulation 10/16/2003, 01/08/2003,2002,09/02 INFLUENZA TRIVALENT MDCK w/PRESERVATIVE IM 08/04/2024 IPV 06/26/2022, 7,07/15/2003,11/11,2002 Influenza Quadrivalent Prese rvative Free IM 09/06/2022,09/14/2020 Influenza Quadrivalent w/ Pr eservative IM 09/24/2018 Influenza, Unspecified Formulation 09/01,11/06/2011,11/02/2010,08/19,07/30/2007,10/16/2003 MMR 07/30/2007,10/16/2003 Meningococcal [...] 2020 DEPRESSION SCREENING 06/22/2024 06/22/2023, 02/29/20 21 INFLUENZA VACCINE (#1) 2025 , 09/06/2022, 09/14/2020, Additional history exists COVID-19 VACCINE ( season) 2025 07/25/2022, 06/26/2022, 11/27/2021, Additional history exists Adult [...] 03/05/2014 [employer] Not on [place] [address] [place] [address] Additional Source Comments The information contained in this document represents components of the legal health record. It is not the complete legal health record.[facility]
--- OUTSIDE RECORDS SUMMARY | 2025-10-19 14:46 | XMS_ITS | Clinical Summary ---
Author Organization [facility] Address [address] [place] [address] Care Team Providers Care Field Spec Name Role Phone Chandler Raphael MD Primary Care Provider [phone] Allergies No known active allergies Medications predniSONE [...] Health Maintenance Due Date Last Done Comments Hepatitis B Screening 2020 Annual Physical 06/22/2024 06/22/2023, 05/0 12/2020, 11/04/2019, Additional history exists COVID-19 Vaccine ( season) 2025 07/25/2022, 06/26/2022, 11/27/2021, Additional history exists Influenza Vaccine (#1) 2025 , 09/14/2020, 09/24/2018, Additional history exists DTaP,Tdap,and Td Vaccines (8 - Td or Tdap) 06/26/2032 06/26/2022, 03/05/2014, 07/30/2007, Additional history exists Pneumococcal Vaccines 0-49 yrs (includes High Risk) Aged Out 07/15/2003, 01/08/2003, 2002, Additional history exists No longer eligible based on patient's age to complete this topic HIB Vaccines Completed 10/16/2003, 12/27, 2002, Additional history exists HPV Vaccines Completed 11/04/2019, 08/30, 07/02/2018 Hepatitis A Vaccine Completed 09/14/2020, 0 Insurance [facility] H[facility] Care Teams Field Spec Relationship Specialty Start Date End Date Chandler Raphael MD [address] [place], [place] PCP - General Pediatrics 05/01/23
== END 2025-10-19 12:04 | disposition home or self-care (01) ==
LOC: HO.HMCFM 11:33
PROVIDERS: PCP Nurse Practitioner Family; Visit Provider Nurse Practitioner Family
DX: M47.27 Other spondylosis with radiculopathy, lumbosacral region (principal); Y99.1 Military activity; M62.830 Muscle spasm of back; M54.50 Low back pain, unspecified; G89.29 Other chronic pain; M54.51 Vertebrogenic low back pain

== ENCOUNTER → 2025-10-19 11:33 | Outpatient (BNVA) | payer OTHER, SELFPAY | PROVIDERS: PCP Nurse Practitioner Family; Visit Provider Nurse Practitioner Family | DX: M54.51 Vertebrogenic low back pain (principal); G89.29 Other chronic pain; M47.27 Other spondylosis with radiculopathy, lumbosacral region | CPT/HCPCS: 99212 ==